=== PATIENT | female | born 1960 | race Caucasian/White ===

== ENCOUNTER 2018-12-31 15:20 | Outpatient (CLI) | payer MEDICAID, SELFPAY ==
--- NOTE | 2018-12-31 15:47 | DI.US_ITS ---
SYMPTOM/DIAGNOSIS: LT LEG SWELLING, PAIN LT INNER MID THIGH, VARICOSE VEINS, H/O DVT, ? DVT LEFT LOWER EXTREMITY ULTRASOUND: Routine examination was performed. There is partial compression of the left common femoral vein and the proximal and mid femoral vein due to thrombus. There also appears to be thrombus at the common femoral greater saphenous vein junction. The distal femoral vein, popliteal and posterior tibial veins show normal compression and blood flow. No evidence of thrombus is seen in these regions. The soft tissues are unremarkable. IMPRESSION: Findings consistent with a deep venous thrombus involving the common femoral vein extending to involve the proximal and mid portions of the femoral vein. There is involvement seen at the common femoral greater saphenous vein junction.
[2018-12-31 16:28] LABS: Abs Immature Grans 0.01 k/cumm (0.0-0.09); Absolute Basophil Count 0.03 k/cumm (0.0-0.2); Absolute Eosinophil Count 0.09 k/cumm (0.0-0.7); Absolute Lymphocyte Count 1.75 k/cumm (1.2-3.4); Absolute Monocyte Count 0.43 k/cumm (0.11-0.7); Absolute Neutrophil Count 4.22 k/cumm (1.2-6.7); Basophils % 0.5; Eosinophils % 1.4; HCT 37.4 % (36.0-46.0); Immature Grans % 0.2; Lymphocytes % 26.8; Mean Corp. HGB Concentration 32.1 g/dL (32.0-36.0); Mean Corpuscular Hemoglobin 29.1 pg (27.0-33.0); Mean Corpuscular Volume 90.6 fL (80-95); Mean Platelet Volume 10.9 fL (8.0-11.0); Monocytes % 6.6; Neutrophils % 64.5; Platelet Count 213 x1000/uL (130-400); RBC 4.13 m/cumm (4.00-5.20); RBC Distribution Width 13.7 % (11.7-14.6); White Blood Cell Count 6.53 k/cumm (4.4-10.8)
--- NOTE | 2018-12-31 16:35 | DI.VRAD_ITS ---
Addendum created by Lizandro Minaya DO on 12/31/2018 5:21:26 PM EDT THIS REPORT CONTAINS FINDINGS THAT MAY BE CRITICAL TO PATIENT CARE. The findings were verbally communicated via telephone conference with Dr Nieto at 5:21 PM EDT on 12/31/2018. The findings were acknowledged and understood. Initial report created on 12/31/2018 4:35:12 PM EDT EXAM: US Duplex Left Lower Extremity Veins, Limited EXAM DATE/TIME: 12/31/2018 4:04 PM CLINICAL HISTORY: 58 years old, female; Pain; Leg, upper; Left; Prior surgery; Surgery date: 6+ months; Surgery type: PT has plates in left lower leg d/t accident; Additional info: HX dvt, left leg swelling, left calf 44cm, right calf 41 cm, varicose veins present, pain at left inner mid thigh TECHNIQUE: Real-time Duplex ultrasound of the Left Lower Extremity with 2-D mcclure scale, color Doppler flow and spectral waveform analysis. Limited exam focused on the left lower extremity veins. COMPARISON: No relevant prior studies available. FINDINGS: Left deep veins: There is partial compression of the left common femoral vein/greater saphenous vein junction, proximal and made femoral vein. The distal femoral, popliteal and posterior tibial veins are unremarkable. Soft tissues: Unremarkable. IMPRESSION: Positive for deep venous thrombosis of left common femoral vein in the proximal and midportion as well as at common femoral vein and greater saphenous vein junction. Dictated and Authenticated by: Lizandor Minaya MD. Ordering:VALENTINE Carranza MD
[2018-12-31 16:53] LABS: D-Dimer 316 ng/mlFEU (<500)
[2018-12-31 18:53] LABS: C-Reactive Protein 0.56 mg/dL (0.0-0.3)
[2018-12-31 22:40] LABS: ESR 13 MM/HR (0-30)
== END 2018-12-31 15:40 ==
PROVIDERS: PCP Nurse Practitioner Family; Visit Provider Nurse Practitioner Family
DX: M79.605 Pain in left leg (principal); I82.412 Acute embolism and thrombosis of left femoral vein
CPT/HCPCS: 36415; 85652; 85025; 85379; 86140; 93971

== ENCOUNTER 2019-06-04 16:44 | Emergency (ER) | payer MEDICAID, SELFPAY ==
--- NOTE | 2019-06-04 16:57 | NUR.NOTE ---
Nursing Note: on pt developed small rash on ther right wrist since the rash has spread up her right arm past her elbow and to left forearm
[2019-06-04 16:59] VITALS: BP 147/83; PULSE 77; RESP 18; TEMP 36.6; O2SAT 99
--- NOTE | 2019-06-04 17:29 | ED.GENADUL_ITS ---
Discharge Plan Disposition Patient Disposition: HOME Discharge Details Chief Complaint: RashLesion Clinical Impression: Rash Primary Care Provider: Tere Brar ED Provider: Nathaniel Sanon Home Meds and New Rx's Prescriptions: New doxycycline hyclate 100 mg capsule 100 mg PO BID Qty: 19 RF: 0 Continued bupropion HCl [Wellbutrin SR] 150 mg Tablet Sustained-Release 12 Hr 150 mg PO BID RF: 0 Eliquis 5 mg Tablet 5 mg PO BID RF: 0 Discharge Instructions Instructions: Acute Rash (ED) Additional Instructions: Please take Benadryl 50 mg every 8 hours as needed for itching. Please take doxycycline as prescribed. Be sure to complete the full antibiotic course. Please contact your primary care physician to arrange follow-up. Return to the ER for any worsening or new concerning symptoms. Referrals: Tere Brar [Primary Care Provider] - Medical Decision Making 58-year-old female here with itchy red rash of her itchy right forearm that appears slightly raised and demarcated that has been extending proximately over the past 3 days. Also with small area of rash left forearm. No tick bites. Rash does appear allergic and hive-like. No known allergens. Patient has been using antihistamine today which has not resolved her symptoms. Consider infectious etiology and cellulitis superimposed on the right upper extremity rash. Plan to treat with doxycycline. I have encouraged the patient to follow-up with her primary care physician -patient verbalized understanding of importance of timely follow-up for reassessment. I also encouraged her to return immediately should she have any worsening or new concerning symptoms. Usual and customary discharge instructions were provided. HPI General Mode of arrival: ambulatory . Date/Time Provider Initiated Documentation: 06/04/19 17:14 . Limitations to Documentation: no limitations . Information obtained by: patient . HPI Narrative: 58-year-old female presents with chief complaint of rash. 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 Patient notes that rash started 3 days ago on her right wrist and has progressed. Rash is described as itchy and red. Rash now involves her right forearm she also notes that she has a small rash on her left proximal forearm. She denies associated fever. No joint aches. Otherwise feeling well. She denies known allergen. Patient notes that she is had no tick bites. Related Data Home Medications Medication Instructions Recorded Confirmed Eliquis 5 mg PO BID 06/04/19 06/04/19 bupropion HCl [Wellbutrin SR] 150 mg PO BID 06/04/19 06/04/19 doxycycline hyclate 100 mg PO BID #19 cap 06/04/19 Previous Rx's Medication Instructions Recorded doxycycline hyclate 100 mg PO BID #19 cap 06/04/19 Allergies Allergy/AdvReac Type Severity Reaction Status Date / Time No Known Drug Allergies Allergy Unverified 06/04/19 17:01 General Stated Complaint: RashLesion [place]: 4 Review of Systems Review of Systems All systems reviewed & are unremarkable except as noted in HPI and below Constitutional Denies chills and Denies fever(s) Respiratory Denies cough Integumentary/Breasts Reports as per HPI [facility] Medical History Arthralgia Varicose vein of leg Surgical History Colonoscopy - MAC (09/28/17) Vaginal hysterectomy Social History Smoking/Tobacco Use Status: Former Tobacco Use Drug use: Never Substance use type: does not use Do you feel safe at home: Yes Do you feel safe in your relationship?: Yes Exam Const General: cooperative and no acute distress HENMT Head: normocephalic Mouth: moist mucous membranes Eyes Conjunctivae: normal conjunctivae Sclera: normal sclerae Resp Auscultation: clear to auscultation bilaterally, no rales, no rhonchi and no wheezes Cardio Jugular venous pressure: no JVD Rate: regular rate and not tachycardic Rhythm: regular rhythm Heart Sounds: S1 normal, S2 normal and no murmurs Skin General skin exam: no rashes or lesions noted Rashes: rashes noted (Slightly raised confluent red rash right anterior forearm) Other: subtle 2cm papular rash right forearm Neuro General: alert, awake and tone normal Extrem General: no edema Psych Appearance: grossly normal Mental Status: mental status grossly normal Course Vital Signs Temperature 36.6 C 06/04/19 16:59 Pulse 77 06/04/19 16:59 Respiratory Rate 18 06/04/19 16:59 Blood Pressure 147/83 H 06/04/19 16:59 Pulse Oximetry 99 06/04/19 16:59 Temperature 36.6 C 06/04/19 16:59 Temperature Source Skin 06/04/19 16:59 Pulse 77 06/04/19 16:59 Respiratory Rate 18 06/04/19 16:59 Respiratory Effort Non-Labored 06/04/19 17:07 Blood Pressure 147/83 H 06/04/19 16:59 Blood Pressure Position Supine 06/04/19 16:59 Pulse Oximetry 99 06/04/19 16:59 Oxygen Delivery Method Room Air 06/04/19 16:59 Oxygen Flow Rate 0 06/04/19 16:59 Pain Level 4 06/04/19 16:59
[2019-06-04] MEDS: Doxycycline Hyclate 100 MG CAP PO (17:35)
== END 2019-06-04 17:41 | disposition home or self-care (01) ==
PROVIDERS: Emergency Provider Student in an Organized Health Care Education/Training Program; PCP Nurse Practitioner Family
DX: R21 Rash and other nonspecific skin eruption (principal)
CPT/HCPCS: 99283

== ENCOUNTER 2019-08-30 10:54 | Outpatient (REF) | payer MEDICAID, SELFPAY ==
[2019-08-30 21:49] LABS: HCT 39.8 % (36.0-46.0); HGB 12.7 g/dL (12.0-15.5); Mean Corp. HGB Concentration 31.9 g/dL (32.0-36.0); Mean Corpuscular Hemoglobin 29.5 pg (27.0-33.0); Mean Corpuscular Volume 92.6 fL (80-95); Platelet Count 243 x1000/uL (130-400); RBC Distribution Width 13.6 % (11.7-14.6); White Blood Cell Count 6.87 k/cumm (4.4-10.8)
[2019-08-30 23:02] LABS: Calculated LDL 119 mg/dL; Cholesterol 193 mg/dL (50-200); Glucose 91 mg/dL (70-100); HDL Cholesterol 41 mg/dL (40-60); Triglyceride 165 mg/dL (30-150)
== END 2019-08-30 11:14 ==
LOC: NCHCN 10:54
PROVIDERS: PCP Nurse Practitioner Family; Visit Provider Nurse Practitioner Family
DX: Z86.718 Personal history of other venous thrombosis and embolism (principal); Z13.220 Encounter for screening for lipoid disorders; Z13.1 Encounter for screening for diabetes mellitus
CPT/HCPCS: 80061; 82947; 85027

== ENCOUNTER 2019-09-06 22:55 | Outpatient (REF) | payer MEDICAID, SELFPAY ==
[2019-09-06 20:32] LABS: C-Reactive Protein 0.54 mg/dL (0.0-0.3)
[2019-09-06 20:51] LABS: ESR 12 mm/hr (0-30)
[2019-09-08 10:42] LABS: HBs Antibody, Quant >1000.0 mIU/mL; Hepatitis B Surface Ab Positive (See Note)
== END 2019-09-06 23:15 ==
LOC: NCHCN 22:55
PROVIDERS: PCP Nurse Practitioner Family; Visit Provider Nurse Practitioner Family
DX: R22.0 Localized swelling, mass and lump, head (principal); N75.0 Cyst of Bartholin's gland; Z11.59 Encounter for screening for other viral diseases
CPT/HCPCS: 85652; 86706; 86140

== ENCOUNTER 2019-09-09 15:05 | Emergency (ER) | payer MEDICAID, SELFPAY ==
[2019-09-09 15:07] VITALS: BP 154/79; PULSE 77; RESP 18; TEMP 36.4; O2SAT 97
--- NOTE | 2019-09-09 15:22 | ED.GENADUL_ITS ---
Discharge Plan Disposition Patient Disposition: HOME Condition: Stable Discharge Details Chief Complaint: Cellulitis Clinical Impression: Cellulitis of foot, left Primary Care Provider: Tere Brar ED Provider: Cipriano Walker Home Meds and New Rx's Prescriptions: New amoxicillin-pot clavulanate [Augmentin] 875-125 mg tablet 1 tab PO BID Qty: 14 RF: 0 prednisone 20 mg tablet 60 mg PO DAILY 4 Days Qty: 12 RF: 0 Continued Eliquis 5 mg Tablet 5 mg PO BID RF: 0 sulfamethoxazole-trimethoprim [Bactrim DS] 800-160 mg Tablet RF: 0 albuterol sulfate [ProAir HFA] 90 mcg/actuation Hfa Aerosol Inhaler INHALATION RF: 0 No Action cetirizine 10 mg Tablet 10 mg PO DAILY RF: 0 Discharge Instructions Instructions: Cellulitis (ED) Additional Instructions: if you have redness streaking up the leg, severe pain or fevers return to the emergency department if not better by next week follow up with your primary care provider Medical Decision Making 58 yo female with hx of dvt on eliquis comes in with left foot redness and swelling since yesterday. Denies fevers, chills, or severe pain. Has erythema of the entire left foot extending up 3cm of the lower leg. No crepitus, fluctuance or draingae, 2+ dp/pt pulses with intact sensation and is warm to touch. Suspect cellulitis. Discussed trial of PO abx vs IV abx and she would like to try oral given no fevers or other symptoms to suggest sepsis. She understands importance of returning if worsening and to f/u with pcp. No calf pain and no significant swelling so doubt dvt Differential Diagnosis Differential Diagnosis: cellulitis, gout HPI General Mode of arrival: ambulatory . Date/Time Provider Initiated Documentation: 09/09/19 15:12 . Limitations to Documentation: no limitations . Information obtained by: patient . History of Present Illness 58 year old F presents to the emergency department with the chief complaint of rash, described as moderate, Patient started experiencing this day(s) (1) and it has been constant. No relieving factors improve symptom(s), No exacerbating factors reported . Patient did receive the following treatments prior to arrival, none Related Data Home Medications Medication Instructions Recorded Confirmed Eliquis 5 mg PO BID 06/04/19 06/04/19 albuterol sulfate [ProAir HFA] INHALATION 09/09/19 amoxicillin-pot clavulanate 1 tab PO BID #14 tab 09/09/19 [Augmentin] cetirizine 10 mg PO DAILY 09/09/19 09/09/19 prednisone 60 mg PO DAILY 4 Days #12 tab 09/09/19 sulfamethoxazole-trimethoprim 09/09/19 [Bactrim DS] Previous Rx's Medication Instructions Recorded amoxicillin-pot clavulanate 1 tab PO BID #14 tab 09/09/19 [Augmentin] prednisone 60 mg PO DAILY 4 Days #12 tab 09/09/19 Allergies Allergy/AdvReac Type Severity Reaction Status Date / Time bupropion [From Wellbutrin] Allergy Hives Unverified 09/09/19 15:24 No Known Drug Allergies Allergy Unverified 09/09/19 15:24 General Stated Complaint: Cellulitis [place]E: 3 Review of Systems All systems reviewed & are unremarkable except as noted in HPI and below Constitutional Constitutional: Denies chills, Denies fever(s) and Denies weakness ENT Ears, Nose, Mouth, and Throat: Denies change in voice Cardiovascular Cardiovascular: Denies chest pain and Denies dyspnea Respiratory Respiratory: Denies dyspnea Gastrointestinal Gastrointestinal: Denies abdominal pain, Denies nausea and Denies vomiting Musculoskeletal Musculoskeletal: Denies joint swelling Neurologic Neurologic: Denies weakness [facility] Social History Smoking/Tobacco Use Status: Former Tobacco Use Drug use: Never Substance use type: does not use Do you feel safe at home: Yes Do you feel safe in your relationship?: Yes Exam Const General: no acute distress Orientation: alert [facility] Head: normal to inspection Ears: external ears normal General nose exam: external nose normal Mouth: moist mucous membranes Eyes General: appearance normal, both eyes and all related structures Neck Neck: normal visual inspection Resp Effort & Inspection: normal respiratory effort and able to speak in complete sentences Cardio Rate: regular rate Skin General skin exam: elasticity normal Neuro General: alert and oriented x3 Extrem General: normal capillary refill Psych Mental Status: mental status grossly normal Course Vital Signs Vital signs: Vital Signs Temperature 36.4 C L 09/09/19 15:07 Pulse 77 09/09/19 15:07 Respiratory Rate 18 09/09/19 15:07 Blood Pressure 154/79 H 09/09/19 15:07 Pulse Oximetry 97 09/09/19 15:07 Temperature 36.4 C L 09/09/19 15:07 Temperature Source Skin 09/09/19 15:07 Pulse 77 09/09/19 15:07 Respiratory Rate 18 09/09/19 15:07 Respiratory Effort 09/09/19 15:14 Blood Pressure 154/79 H 09/09/19 15:07 Blood Pressure Position Sitting 09/09/19 15:07 Pulse Oximetry 97 09/09/19 15:07 Oxygen Delivery Method Room Air 09/09/19 15:07 Oxygen Flow Rate 0 09/09/19 15:07 Pain Level 7 09/09/19 15:07
[2019-09-09] MEDS: predniSONE 20 MG TAB 60 MG PO (15:38)
[2019-09-09] MEDS: Amoxicillin 875/Clav. 125 TAB PO (15:38)
== END 2019-09-09 15:35 | disposition home or self-care (01) ==
PROVIDERS: Emergency Provider Emergency Medicine; PCP Nurse Practitioner Family
DX: L03.116 Cellulitis of left lower limb (principal); Z79.01 Long term (current) use of anticoagulants
CPT/HCPCS: 99283; J7512

== ENCOUNTER 2019-09-28 01:03 | Outpatient (CLI) | payer MEDICAID, SELFPAY ==
--- NOTE | 2019-09-28 11:51 | DI.MAMMO_ITS ---
EXAM: MG MAMMO SCREENING CLINICAL HISTORY: SCREENING, Z12.31. TECHNIQUE: Full field digital CC and MLO mammographic images were obtained with 3D tomosynthesis and utilizing computer aided detection (CAD). COMPARISON: . 2011 through 2016 FINDINGS: Breast Density - Category B - Scattered areas of fibroglandular density Masses/Architectural Distortion: None seen. Microcalcifications: No suspicious pleomorphic-type calcifications are seen. Skin Thickening/Nipple Retraction: None. Axilla: Unremarkable. IMPRESSION: 1. BI-RADS category 1, negative. No significant interval change with no specific features of maligna ncy noted. 2. Unless there is more urgent need, screening mammography is recommended, as per [place] [employer] guidelines. A negative radiographic report should not delay biopsy if a dominant or clinically suspicious mass is present. Up to ten percent of cancers are not identified on mammography. A negative report may reinforce clinical impression. Adenosis and dense breasts may obscure an underlying neoplasm. False positive reports average 6 to 10%. Patient will receive a letter notifying them of these results.
== END 2019-09-28 01:23 ==
PROVIDERS: PCP Nurse Practitioner Family; Visit Provider Nurse Practitioner Family
DX: Z12.31 Encounter for screening mammogram for malignant neoplasm of breast (principal)
CPT/HCPCS: 77063; 77067

== ENCOUNTER 2019-11-28 15:32 | Outpatient (REF) | payer MEDICAID, SELFPAY ==
[2019-11-28 19:17] LABS: HCT 38.3 % (36.0-46.0); HGB 12.4 g/dL (12.0-15.5); Mean Corp. HGB Concentration 32.4 g/dL (32.0-36.0); Mean Corpuscular Hemoglobin 29.4 pg (27.0-33.0); Mean Corpuscular Volume 90.8 fL (80-95); Mean Platelet Volume 12.1 fL (8.0-11.0); Platelet Count 260 x1000/uL (130-400); RBC 4.22 m/cumm (4.00-5.20); RBC Distribution Width 13.7 % (11.7-14.6); White Blood Cell Count 6.29 k/cumm (4.4-10.8)
== END 2019-11-28 15:52 ==
LOC: NCHCN 15:32
PROVIDERS: PCP Nurse Practitioner Family; Visit Provider Nurse Practitioner Family
DX: Z51.81 Encounter for therapeutic drug level monitoring (principal)
CPT/HCPCS: 85027

== ENCOUNTER 2019-12-09 00:44 | Inpatient (IN) | payer MEDICAID, SELFPAY ==
[2019-12-09] VITALS (31 sets, daily range): BP systolic 111–172; BP diastolic 64–92; PULSE 56–74; RESP 12–28; TEMP 36.1–36.7; O2SAT 96–100
--- NOTE | 2019-12-09 | DI.US_ITS ---
EXAM: US ABDOMEN CLINICAL HISTORY: pancreatitis TECHNIQUE: Ultrasound performed using standard protocol. COMPARISON: CT CHEST PE CTA from 12/09/2019 FINDINGS: The liver is enlarged measuring 18.1 cm in length. There is increased liver echogenicity consistent with fatty infiltration. No focal liver lesions or biliary dilatation is seen. No gallstones or pe richolecystic fluid is seen. The pancreas is unremarkable as visualized. No peripancreatic fluid co llection or ascites is seen. The spleen, kidneys and aorta are unremarkable. IMPRESSION: [id number] hepatic steatosis and mild hepatomegaly. There is no visible pancreatic abnormality . DATA REPOSITORY:
--- NOTE | 2019-12-09 00:48 | ED.GENADUL_ITS ---
Discharge Plan Disposition Patient Disposition: [facility] INPATIENT Condition: Fair Discharge Details Chief Complaint: Chest Pain Clinical Impression: Acute pancreatitis Primary Care Provider: Tere Brar ED Provider: Rudy Buckner [place] Meds and New Rx's Prescriptions: No Action Eliquis 5 mg Tablet 5 mg PO BID RF: 0 Medical Decision Making Patient presenting with left-sided chest pain which she describes as pleuritic but also tightness. Tenderness to palpation along the left lower anterior costal margin up along the sternum. Abdomen is benign. Prior history of DVT and on Eliquis chronically. Does not feel short of breath but cannot take a deep breath. No trauma and no previous illness. Have to consider PE given her history though being on Eliquis makes it unlikely. Given her level of discomfort will just proceed with CTA. Will give nitroglycerin although I do not think this is cardiac. Pain is mostly reproducible. EKG is normal. Laboratory studies sent. Will calculate a HEART score once first troponin back. Patient's CT scan is negative for pulmonary embolus or aortic dissection. However, it shows evidence of peripancreatic inflammation. Lipase is added onto labs. Other labs are unremarkable. White count is normal. Hemoglobin normal. Chemistries normal. First troponin negative. Nitroglycerin did not help. Patient given morphine with some relief. Lipase has returned greater than 15,000. Patient has no right-sided abdominal pain or tenderness. White count and liver function normal. Seems unlikely to be gallstone related but should get ultrasound in the morning. Patient is not a drinker or smoker. She is on no medications that would cause this. Triglycerides this fall were only 165. At this point no clear etiology for her pancreatitis but will require admission for pain control and fluids. Case discussed with hospitalist who will come in to evaluate and admit the patient. Medical Records Medical records reviewed: Yes I reviewed the patient's medical records. Lab Data Lab results reviewed: Yes I reviewed the patient's lab results. ECG Data Attestation: I personally reviewed and interpreted this ECG (s) as follows: Prior ECG tracings: not available for review Interpretation: Sinus rhythm at 65. Normal axis and intervals. Normal ST segments. HPI General Mode of arrival: ambulatory . Date/Time Provider Initiated Documentation: 12/09/19 00:47 . Limitations to Documentation: no limitations . Information obtained by: patient, RN notes reviewed and old records reviewed . HPI Narrative: Patient presents to ED with complaint of left-sided chest pain that woke her up around hour prior to coming in. She describes it as pressure/tightness but it is also pleuritic and much worse with movement or breathing. She has not had this previously. She does have a history of DVT in the past and is on Eliquis chronically. She has recently had ultrasounds which showed clearance of the clot. She denies being ill with fever or cough or respiratory symptoms. She denies radiation to the neck or shoulders. Some radiation to the lateral chest. There is no abdominal pain. There is no nausea. Related Data Home Medications Medication Instructions Recorded Confirmed Eliquis 5 mg PO BID 06/04/19 12/09/19 Allergies Allergy/AdvReac Type Severity Reaction Status Date / Time bupropion [From Wellbutrin] Allergy Hives Unverified 12/09/19 00:56 General [place]: 3 Review of Systems Narrative: 08/01 Review of Systems completed and is negative except as stated above in HPI (Systems reviewed: Const, Eyes, ENT, Resp, CV, GI, , MSK, Skin, Neuro) [facility] Medical History (Updated 12/09/19 @ 02:54 by Rudy Buckner MD) DVT (deep venous thrombosis) (Chronic) Surgical History Status post open reduction with internal fixation of fracture (Chronic) ankle, wrist Vaginal hysterectomy (Chronic) Social History Smoking/Tobacco Use Status: Former Tobacco Use Alcohol Intake: never Drug use: Never Substance use type: does not use Do you feel safe at home: Yes Do you feel safe in your relationship?: Yes Exam Narrative Exam Narrative: Vitals: Afebrile. Hypertensive but otherwise normal vitals and normal room air pulse oximetry. Const: WDWN female in NAD. HEENT: NC/AT. Normal facial exam. Eyes: Normal conjunctiva and sclera. Neck: Supple. Trachea midline. Lungs: Normal respiratory effort. Lungs are clear. Tenderness along the left lower costal margin up around the left sternal border. Cor: RRR without murmur/gallop. Good radial pulses. GI: Soft. NT/ND. No guarding or rebound. Neuro: A+O x 3. Normal speech, mentation, gait. Cranial nerves II - XII grossly intact. No gross motor or sensory deficit. Ext: No C/C/E. Skin: Warm and dry without rash.
[2019-12-09] MEDS: Lactated Ringers 1,000 ML 150 ML IV ×2 (01:13→19:26)
[2019-12-09 01:15] LABS: Abs Immature Grans 0.01 k/cumm (0.0-0.09); Absolute Basophil Count 0.04 k/cumm (0.0-0.2); Absolute Lymphocyte Count 2.38 k/cumm (1.2-3.4); Absolute Monocyte Count 0.73 k/cumm (0.11-0.7); Absolute Neutrophil Count 6.32 k/cumm (1.2-6.7); Basophils % 0.4; HCT 39.8 % (36.0-46.0); HGB 13.2 g/dL (12.0-15.5); Immature Grans % 0.1 %; Lymphocytes % 24.8; Mean Corp. HGB Concentration 33.2 g/dL (32.0-36.0); Mean Corpuscular Hemoglobin 29.9 pg (27.0-33.0); Mean Corpuscular Volume 90.2 fL (80-95); Mean Platelet Volume 11.3 fL (8.0-11.0); Monocytes % 7.6; Neutrophils % 66.1; Platelet Count 264 x1000/uL (130-400); RBC 4.41 m/cumm (4.00-5.20); RBC Distribution Width 13.8 % (11.7-14.6); White Blood Cell Count 9.58 k/cumm (4.4-10.8)
[2019-12-09 01:29] LABS: ALT 19 U/L (14-59); AST 16 U/L (15-37); Albumin 3.9 g/dL (3.4-5.0); Alkaline Phosphatase 79 U/L (46-116); Anion Gap 7.5 mmol/L (3-11); BUN 18 mg/dL (7-18); Bilirubin, Total 0.2 mg/dL (0.2-1.0); CO2 29.5 mmol/L (21.0-32.0); CREATININE 0.95 mg/dL (0.55-1.02); Calcium 8.6 mg/dL (8.5-10.1); Chloride 106 mmol/L (98-107); Glucose 116 mg/dL (74-106); Magnesium 2.1 mg/dL (1.8-2.4); Potassium 3.7 mmol/L (3.5-5.1); Sodium 143 mmol/L (136-145); Total Protein 7.4 g/dL (6.4-8.2)
[2019-12-09 01:30] LABS: Troponin I < 0.05 ng/Ml (<0.06)
[2019-12-09] MEDS: Omnipaque 350 MG/ML 100 ML BTL IJ ×2 (01:43→19:06)
[2019-12-09] MEDS: Normal Saline Flush 10 ML SYR IVP ×3 (01:44→21:46)
[2019-12-09] MEDS: Normal Saline - Diluent 50 ML VIAL IV ×2 (01:44→19:04)
--- NOTE | 2019-12-09 01:45 | DI.CT_ITS ---
EXAM: CT CHEST PE CTA CLINICAL HISTORY: chest pain; history of DVT TECHNIQUE: Post IV contrast according to the PE protocol. Axial CT angiography was performed with multi-slice acquisition and multi-planar and/or 3D reconstruc tions. COMPARISON: No exams were available for comparison FINDINGS: The pulmonary arteries are well opacified with IV contrast. No emboli are identified. The aorta is normal in diameter without evidence of dissection. The lungs appear clear. No pleural or pleural or pericardial effusions or infiltrates are seen. The liver appears enlarged and shows fatty infiltrat ion. Pancreas is partially included on the exam. There is question of mild prominence of the head o f the pancreas and some stranding around the pancreas which could indicate pancreatitis. No fluid co llection is visible. Adrenals appear normal. The spleen is normal in size. No suspicious bony abno rmalities are seen. IMPRESSION: No evidence of pulmonary emboli or other acute abnormality in the chest. There is a question of some inflammation around the pancreas which could indicate pancreatitis.
--- NOTE | 2019-12-09 01:45 | NUR.NOTE ---
Nursing Note: Pt reports pain improves with sitting up in bed.
--- NOTE | 2019-12-09 01:52 | DI.VRAD_ITS ---
PROCEDURE INFORMATION: Exam: CT Angiography Chest With Contrast Exam date and time: 12/09/2019 1:08 AM Age: 59 years old Clinical indication: Chest pain; Type not specified; Patient HX: HX dvt TECHNIQUE: Imaging protocol: Computed tomographic angiography of the chest with intravenous contrast. 3D rendering: MIP and/or 3D reconstructed images were created by the technologist. Radiation optimization: All CT scans at this facility use at least one of these dose optimization techniques: automated exposure control; mA and/or kV adjustment per patient size (includes targeted exams where dose is matched to clinical indication); or iterative reconstruction. Contrast material: [id number]; Contrast volume: 87 ml; Contrast route: IV RT AC 18G; COMPARISON: No relevant prior studies available. FINDINGS: Pulmonary arteries: Main pulmonary artery normal in caliber. No pulmonary artery filling defects. Aorta: No aortic aneurysm or dissection. Lungs: There is minimal bibasilar atelectasis. Pleural space: No pneumothorax. No pleural effusion. Heart: Unremarkable. No cardiomegaly. No pericardial effusion. Liver: There is diffuse decrease in hepatic parenchymal density, consistent with moderate fatty infiltration. Pancreas: Subtle peripancreatic fat stranding. No ductal dilatation. Lymph nodes: Unremarkable. No enlarged lymph nodes. Bones/joints: The spine demonstrates mild degenerative changes at multiple levels. No acute fracture. Soft tissues: Unremarkable. IMPRESSION: 1. No pulmonary artery embolism demonstrated. 2. Subtle peripancreatic fat stranding. Correlate clinically for the presence of pancreatitis. 3. Hepatic steatosis. Dictated and Authenticated by: Ranulfo Dunbar MD. Ordering:MI Grant MD
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
[2019-12-09] MEDS: Lactated Ringers 1,000 ML 120 ML IV (04:50)
[2019-12-09 06:44] LABS: Anion Gap 8.7 mmol/L (3-11); BUN 16 mg/dL (7-18); CO2 28.3 mmol/L (21.0-32.0); CREATININE 0.76 mg/dL (0.55-1.02); Calcium 8.7 mg/dL (8.5-10.1); Chloride 104 mmol/L (98-107); Glucose 110 mg/dL (74-106); Potassium 4.1 mmol/L (3.5-5.1); Sodium 141 mmol/L (136-145)
[2019-12-09] MEDS: Ondansetron 4 MG/2 ML VIAL IVP ×2 (08:12→14:55)
[2019-12-09] MEDS: Enoxaparin 40 MG/0.4 ML SYR SC (09:03)
--- NOTE | 2019-12-09 09:40 | PHARADMIT ---
Admission Pharmacy Clinical Review ACUTE PANCREATITIS Code Status Full Code Current Weight Wgt-108.7 kg Renally Cleared and Narrow Therapeutic Index Meds CrCl~ 91.23 mL/min Meds-OK QTc Value / Action Taken QTc-399 na BP Control, Fever BP-149/81 Tmax-36.7C Electrolytes reviewed Na-141 K+4.1 Mag-2.1 DVT Prophylaxis Lovenox 40mg Opiate Usage / Scheduled Bowel Regimen Ordered Yes Yes Plt/SCr for Heparin / Enoxaparin Plts-264 SCr-0.76 INR for Warfarin na H/H stable, WBC/Bands H&H- 13.2/39.8 WBC-9.58 Antibiotic appropriateness none Cultures and Sensitivities none Surgical ABX d/c within 24 hr na DM control / Insulin Dosing BG- 110 Heart Failure (Check EF%) (MARGY's, B-Block, Diuretics) none IV to PO Switch No Home Meds Reviewed Yes Home Meds Not Ordered Kelsey Tamyrteandre Bactrim-DS Comments LFTs- WNL
--- NOTE | 2019-12-09 09:54 | PDOC.CMIN ---
- If Service Date Differs Date of service: 12/09/19 Time of Service: 09:54 Care Management Initial Assess REASON FOR HOSPITALIZATION:: Acute pancreatitis PAST MEDICAL HISTORY/PAST SURGICAL HISTORY:: Medical History (Updated 12/09/19 @ 04:05 by Emilio Nieto MD). DVT (deep venous thrombosis) (Resolved). Surgical History . Status post open reduction with internal fixation of fracture (Chronic). ankle, wrist. Vaginal hysterectomy (Chronic) PREVIOUS FUNCTIONAL STATUS/SOCIAL/FAMILY SUPPORTS:: Angie lives in a single family home in [facility] with her 2 children. She has a son and a daughter who are both 17 and are adopted from [place]. 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 She is independent at baseline and receives no community services. CURRENT FUNCTIONAL STATUS:: Angie was sitting up in bed visiting with her children when CM met with her. She was pleasant and engaged readily in conversation. Angie shared the details of her relocation to [place] and the reasons for it which were centered around her children and their education. She anticipates being in the hospital for the weekend. ADVANCE DIRECTIVES:: none on file Has patient been provided with information about the portal?: Yes Did the patient sign up for the portal?: Yes CODE STATUS:: Full Code INSURANCE COVERAGE / FINANCIAL ISSUES:: Medicaid CURRENT HOME/COMMUNITY SERVICES/EQUIPMENT:: none PRIMARY CARE PHYSICIAN:: Tere Brar POTENTIAL DISCHARGE NEEDS:: follow up with PCP and discharge plan of care PATIENT/FAMILY EDUCATION NEEDS:: Discharge plan, limitations, follow up plan, Ask Me Three. TRANSPORTATION:: via private vehicle with family PLAN:: Angie will likely be discharged home with no new services. She will follow up with her PCP and discharge plan of care. CM will continue to support patient, family and discharge planning needs.
--- NOTE | 2019-12-09 13:43 | W.NUTCONSULT ---
Date of service: 12/09/19 Time of Service: 13:43 Nutritional Consult ASSESSMENT: 59 year old female admitted with acute pancreatitis, currently NPO. BMI indicates class 1 obesity, appear well nourished. Receiving IV fluids. Not meeting nutrient needs at this time in view of NPO status. Angie was sleeping when I came to interview her. Will monitor diet advancement and or make warranted recommendations for optimal nutrition. NUTRITIONAL DIAGNOSIS: inadequate energy intake MONITORING AND EVALUATION: diet advancement, weight, labs Time Spent in Nutritional Counseling and Treatment: 0 time spent face to face
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
--- NOTE | 2019-12-09 14:52 | W.PM.PROGNOT ---
Date of Service Date of service: 12/09/19 Time of Service: 14:53 Subjective Subjective Interval history since last seen: Continues to have severe epigastric pain and nausea. No dizziness, chest pain, shortness of breath. Abdominal pain worse with ambulation today. Firmly denies alcohol use. US abdomen with mild to moderate hepatic steatosis, mild hepatomegaly, but no visible pancreatic abnormality. Evaluated by general surgery; awaiting formal recommendations. Will continue aggressive IVF, keep patient NPO. Add protonix. Check labs in am including CRP. Continue lovenox for dvt ppx. Objective Objective Clinical Data: Abnormal lab results 12/09/19 12/09/19 12/09/19 Range/Units 00:56 00:56 06:05 MPV 11.3 H (8.0-11.0) fL Absolute Monocytes 0.73 H (0.11-0.7) k/cumm Glucose 116 H 110 H (74-106) mg/dL Vital Signs Temperature 36.7 C 12/09/19 07:30 Temperature Source Tympanic 12/09/19 07:30 Pulse 56 L 12/09/19 07:30 Pulse Rhythm Regular 12/09/19 13:10 Pulse 64 12/09/19 04:01 Respiratory Rate 18 12/09/19 07:30 Respiratory Effort Non-Labored 12/09/19 13:10 Respiratory Depth Normal 12/09/19 13:10 Respiratory Pattern Normal 12/09/19 13:10 Blood Pressure 149/81 H 12/09/19 07:30 Blood Pressure Mean 97 12/09/19 04:00 Pulse Oximetry 97 12/09/19 11:17 Oxygen Delivery Method Room Air 12/09/19 11:17 Oxygen Flow Rate 0 12/09/19 11:17 Pain Level 8 12/09/19 11:24 Intake & Output 12/08/19 12/09/19 12/09/19 23:59 11:59 23:59 Intake Total 1000 / 1000 Output Total 200 / 400 200 / 400 Balance 800 / 600 -200 / 600 Weight 108.7 kg Intake: IV 1000 / 1000 Output: Urine 200 / 200 Emesis 200 / 200 Other: Urine Color Dark Shannan Urine Appearance Clear Urine Odor Normal Emesis Description Undigested Food Voiding Methods Toilet Laboratory Results WBC 9.58 k/cumm (4.4-10.8) 12/09/19 00:56 RBC 4.41 m/cumm (4.00-5.20) 12/09/19 00:56 Hgb 13.2 g/dL (12.0-15.5) 12/09/19 00:56 Hct 39.8 % (36.0-46.0) 12/09/19 00:56 MCV 90.2 fL (80-95) 12/09/19 00:56 MCH 29.9 pg (27.0-33.0) 12/09/19 00:56 MCHC 33.2 g/dL (32.0-36.0) 12/09/19 00:56 RDW 13.8 % (11.7-14.6) 12/09/19 00:56 Plt Count 264 x1000/uL (130-400) 12/09/19 00:56 MPV 11.3 fL (8.0-11.0) H 12/09/19 00:56 Immature Gran % 0.1 % 12/09/19 00:56 Neutrophils % 66.1 12/09/19 00:56 Lymphocytes % 24.8 12/09/19 00:56 Monocytes % 7.6 12/09/19 00:56 Eosinophils % 1.0 12/09/19 00:56 Basophils % 0.4 12/09/19 00:56 Absolute Neutrophils 6.32 k/cumm (1.2-6.7) 12/09/19 00:56 Absolute Lymphocytes 2.38 k/cumm (1.2-3.4) 12/09/19 00:56 Absolute Monocytes 0.73 k/cumm (0.11-0.7) H 12/09/19 00:56 Absolute Eosinophils 0.10 k/cumm (0.0-0.7) 12/09/19 00:56 Absolute Basophils 0.04 k/cumm (0.0-0.2) 12/09/19 00:56 Sodium 141 mmol/L (136-145) 12/09/19 06:05 Potassium 4.1 mmol/L (3.5-5.1) 12/09/19 06:05 Chloride 104 mmol/L (98-107) 12/09/19 06:05 Carbon Dioxide 28.3 mmol/L (21.0-32.0) 12/09/19 06:05 Anion Gap 8.7 mmol/L (3-11) 12/09/19 06:05 BUN 16 mg/dL (7-18) 12/09/19 06:05 Creatinine 0.76 mg/dL (0.55-1.02) 12/09/19 06:05 Estimated GFR/1.73 m2 >= 60.00 (mL/min/1.73m2) 12/09/19 06:05 Glucose 110 mg/dL (74-106) H 12/09/19 06:05 Calcium 8.7 mg/dL (8.5-10.1) 12/09/19 06:05 Magnesium 2.1 mg/dL (1.8-2.4) 12/09/19 00:56 Total Bilirubin 0.2 mg/dL (0.2-1.0) 12/09/19 00:56 AST 16 U/L (15-37) 12/09/19 00:56 ALT 19 U/L (14-59) 12/09/19 00:56 Alkaline Phosphatase 79 U/L (46-116) 12/09/19 00:56 Troponin I Cancelled 12/09/19 04:05 Total Protein 7.4 g/dL (6.4-8.2) 12/09/19 00:56 Albumin 3.9 g/dL (3.4-5.0) 12/09/19 00:56 Lipase U/L (73-393) 12/09/19 00:56
[2019-12-09] MEDS: Pantoprazole 40 MG VIAL IVP (15:42)
--- NOTE | 2019-12-09 19:10 | DI.CT_ITS ---
EXAM: CT ABDOMEN PELVIS W CLINICAL HISTORY: pancreatitis TECHNIQUE: CT examination of the abdomen and pelvis was performed with a bolus infusion of 100 cc of Omnipaque 350. COMPARISON: CT CHEST PE CTA from 12/09/2019 FINDINGS: Images obtained through the lung bases are unremarkable. There is decreased hepatic attenuation con sistent with hepatic steatosis. High density material in the gallbladder may reflect prior contrast administration earlier today. No biliary dilatation. Spleen is unremarkable. Question minimal cathleen pancreatic edema, possible pancreatitis, please correlate clinically and with lab values. Adrenals and kidneys are unremarkable. No urinary tract calcification or obstruction. No evidence o f appendicitis or diverticulitis. Normal caliber abdominal aorta with no gross vascular abnormality seen. No abdominal or pelvic adenopathy. No significant abdominal wall hernia. IMPRESSION: Question minimal peripancreatic edema may represent mild acute uncomplicated pancreatitis. No other significant acute findings.
--- NOTE | 2019-12-09 19:50 | DI.VRAD_ITS ---
PROCEDURE INFORMATION: Exam: CT Abdomen And Pelvis With Contrast Exam date and time: 12/09/2019 5:16 PM Age: 59 years old Clinical indication: Condition or disease; Pancreatic condition; Pancreatitis; Prior surgery; Surgery date: 6+ months TECHNIQUE: Imaging protocol: Computed tomography of the abdomen and pelvis with intravenous contrast. Radiation optimization: All CT scans at this facility use at least one of these dose optimization techniques: automated exposure control; mA and/or kV adjustment per patient size (includes targeted exams where dose is matched to clinical indication); or iterative reconstruction. Contrast material: [id number]; Contrast volume: 100 ml; Contrast route: IV RTAC 18G; COMPARISON: US ABDOMEN 12/09/2019 8:39 AM FINDINGS: Lungs: There is subpleural atelectasis of the dependent portions of the lungs. The visualized portions of the lung bases demonstrate no acute disease. Mediastinum: A small hiatal hernia is present. Liver: There is marked enlargement of the liver. There is a diffuse decrease in hepatic parenchymal density, consistent with fatty infiltration. No acute liver pathology. Gallbladder and bile ducts: Hyperdense fluid within the gallbladder. This can be related to vicarious excretion of contrast. No biliary ductal dilation. Pancreas: Very mild peripancreatic inflammatory changes are noted, slightly more pronounced at the pancreatic head. No other acute pancreatic findings are otherwise appreciated. Spleen: Normal. No splenomegaly. Adrenals: Normal. No mass. Kidneys and ureters: There is a small simple left renal cyst. No acute renal findings. No obstructive uropathy. Stomach and bowel: No bowel wall thickening, obstruction, or other acute pathology. Diffuse colonic diverticulosis is present. There is mildly excessive colonic stool content. Appendix: No evidence of appendicitis. Intraperitoneal space: Unremarkable. No free air. No significant fluid collection. Vasculature: The vasculature demonstrates diffuse mild atherosclerotic calcification. Lymph nodes: Unremarkable. No enlarged lymph nodes. Bladder: There is contrast within the urinary bladder. Mild urinary bladder wall thickening is most likely related to underdistention. Reproductive: There has been a hysterectomy. Bones/joints: No acute skeletal pathology. Mild multilevel degenerative changes of the spine, as manifested by multilevel anterior osteophytes and multilevel decrease in intervertebral disc space. Soft tissues: Unremarkable. IMPRESSION: 1. Mild acute edematous pancreatitis without complications. 2. Other incidental findings as detailed above. Dictated and Authenticated by: Ronn Rush MD. Ordering:PALMA Drake MD
[2019-12-10] MEDS: Lactated Ringers 1,000 ML 150 ML IV ×2 (01:44→08:20)
[2019-12-10 03:51] VITALS: BP 126/71; PULSE 60; RESP 16; TEMP 36; O2SAT 98
[2019-12-10 07:10] LABS: HCT 32.9 % (36.0-46.0); HGB 10.4 g/dL (12.0-15.5); Mean Corp. HGB Concentration 31.6 g/dL (32.0-36.0); Mean Corpuscular Hemoglobin 29.1 pg (27.0-33.0); Mean Corpuscular Volume 91.9 fL (80-95); Mean Platelet Volume 11.5 fL (8.0-11.0); Platelet Count 185 x1000/uL (130-400); RBC 3.58 m/cumm (4.00-5.20); White Blood Cell Count 6.94 k/cumm (4.4-10.8)
[2019-12-10 07:22] LABS: C-Reactive Protein 2.24 mg/dL (0.0-0.3)
[2019-12-10 07:24] LABS: Lipase 1628 U/L (73-393)
[2019-12-10 07:25] LABS: ALT 15 U/L (14-59); AST 10 U/L (15-37); Albumin 3.2 g/dL (3.4-5.0); Alkaline Phosphatase 65 U/L (46-116); Anion Gap 6.9 mmol/L (3-11); BUN 13 mg/dL (7-18); Bilirubin, Direct 0.09 mg/dL (0.00-0.20); Bilirubin, Total 0.4 mg/dL (0.2-1.0); CO2 28.1 mmol/L (21.0-32.0); CREATININE 0.82 mg/dL (0.55-1.02); Calcium 8.3 mg/dL (8.5-10.1); Chloride 106 mmol/L (98-107); Glucose 94 mg/dL (74-106); Potassium 3.8 mmol/L (3.5-5.1); Sodium 141 mmol/L (136-145); Total Protein 6.1 g/dL (6.4-8.2)
[2019-12-10 07:30] LABS: GGT 33 U/L (5-55)
[2019-12-10 07:32] VITALS: BP 121/67; PULSE 62; RESP 17; TEMP 36.6; O2SAT 96
[2019-12-10] MEDS: Enoxaparin 40 MG/0.4 ML SYR SC (08:19)
[2019-12-10] MEDS: Ondansetron 4 MG/2 ML VIAL IVP ×2 (09:57→16:32)
[2019-12-10 11:24] VITALS: BP 124/73; PULSE 60; RESP 18; TEMP 36.9; O2SAT 97
[2019-12-10] MEDS: Normal Saline Flush 10 ML SYR IVP ×2 (11:42→19:36)
--- NOTE | 2019-12-10 14:15 | W.PM.PROGNOT ---
Date of Service Date of service: 12/10/19 Time of Service: 14:15 Assessment and Plan Assessment and plan (1) Acute pancreatitis: Status: Acute Assessment and plan: DVT/GI proh pulm toilet walking try some tea or arabella mya cont conservative care follow hgb (2) DVT (deep venous thrombosis): Status: Resolved Subjective Subjective Interval history since last seen: Overall pt is feeling much better than on admission. She did have nausea last pm w/ just ice chips. She is thirsty, but not hungry. + Flatus, but no BM. no headaches. No CP or SOB. no productive cough. no dysuria. no leg pain or swelling. Exam Const General: cooperative, healthy appearing, comfortable, no acute distress, well developed and well groomed Nutritional Appearance: average body habitus and well nourished Orientation: alert, awake and oriented x3 HENMT Head: normal to inspection, normocephalic and atraumatic Ears: hearing grossly normal bilaterally and external ears normal General nose exam: external nose normal Face and sinus: normal facial exam and sinuses nontender Mouth: oral mucosae normal, lip normal, tongue normal and moist mucous membranes Teeth and gingiva: dentition normal Eyes General: appearance normal, both eyes and all related structures Conjunctivae: conjunctivae normal Sclera: sclerae normal Pupils: PERRL Neck Neck: normal visual inspection and full ROM Chest Chest: normal inspection of the chest Resp Effort & Inspection: normal respiratory effort, able to speak in complete sentences, no cough, no nasal flaring, not tachypneic and no use of accessory muscles Auscultation: clear to auscultation bilaterally, no rales, no rhonchi and no wheezes Cardio Jugular venous pressure: no JVD Rate: regular rate Rhythm: regular rhythm GI Inspection: normal to inspection, no edema and non-distended Palpation: soft, no masses, tender in the epigastrum (radiates into back ) and No ascites Auscultation: normal bowel sounds Skin General skin exam: no rashes or lesions noted Trauma: no lacerations or abrasions Neuro General: alert, oriented x3, oriented, gait normal, moves all extremities, no focal motor deficits and CN's II-XI intact bilaterally Cognition: normal cognition Speech: speech normal Gait: normal gait Motor: muscle tone normal throughout Extrem General: normal to inspection, full ROM and no clubbing, cyanosis or edema Psych Appearance: grossly normal and well kempt Mental Status: mental status grossly normal Speech and Movement: speech and movement normal Affect: normal affect Objective Objective Clinical Data: Abnormal lab results 12/10/19 12/10/19 12/10/19 Range/Units 06:39 06:39 06:39 RBC 3.58 L (4.00-5.20) m/cumm Hgb 10.4 L D (12.0-15.5) g/dL Hct 32.9 L (36.0-46.0) % MCHC 31.6 L (32.0-36.0) g/dL MPV 11.5 H (8.0-11.0) fL Calcium 8.3 L (8.5-10.1) mg/dL AST 10 L (15-37) U/L C-Reactive Protein 2.24 H (0.0-0.3) mg/dL Total Protein 6.1 L (6.4-8.2) g/dL Albumin 3.2 L (3.4-5.0) g/dL Lipase 1628 H (73-393) U/L Vital Signs Temperature 36.9 C 12/10/19 11:24 Temperature Source Tympanic 12/10/19 11:24 Pulse 60 12/10/19 11:24 Pulse Rhythm Regular 12/10/19 10:12 Pulse 64 12/09/19 04:01 Respiratory Rate 18 12/10/19 11:24 Respiratory Effort Non-Labored 12/10/19 10:12 Respiratory Depth Normal 12/10/19 10:12 Respiratory Pattern Normal 12/10/19 10:12 Blood Pressure 124/73 12/10/19 11:24 Blood Pressure Mean 97 12/09/19 04:00 Pulse Oximetry 97 12/10/19 11:24 Oxygen Delivery Method Room Air 12/10/19 11:24 Oxygen Flow Rate 0 12/10/19 11:24 Pain Level 4 12/10/19 12:36 Intake & Output 12/09/19 12/10/19 12/10/19 23:59 11:59 23:59 Intake Total 1934 Output Total 200 / 400 1250 / 1250 Balance -200 / 1200 685 / 685 Intake: IV 1934 Output: Urine 200 / 200 1250 / 1250 Other: Urine Color Dark Shannan Yellow Urine Appearance Clear Clear Urine Odor Normal Normal Emesis Description None Voiding Methods Toilet Toilet Laboratory Results WBC 6.94 k/cumm (4.4-10.8) 12/10/19 06:39 RBC 3.58 m/cumm (4.00-5.20) L 12/10/19 06:39 Hgb 10.4 g/dL (12.0-15.5) L D 12/10/19 06:39 Hct 32.9 % (36.0-46.0) L 12/10/19 06:39 MCV 91.9 fL (80-95) 12/10/19 06:39 MCH 29.1 pg (27.0-33.0) 12/10/19 06:39 MCHC 31.6 g/dL (32.0-36.0) L 12/10/19 06:39 RDW 14.0 % (11.7-14.6) 12/10/19 06:39 Plt Count 185 x1000/uL (130-400) 12/10/19 06:39 MPV 11.5 fL (8.0-11.0) H 12/10/19 06:39 Immature Gran % 0.1 % 12/09/19 00:56 Neutrophils % 66.1 12/09/19 00:56 Lymphocytes % 24.8 12/09/19 00:56 Monocytes % 7.6 12/09/19 00:56 Eosinophils % 1.0 12/09/19 00:56 Basophils % 0.4 12/09/19 00:56 Absolute Neutrophils 6.32 k/cumm (1.2-6.7) 12/09/19 00:56 Absolute Lymphocytes 2.38 k/cumm (1.2-3.4) 12/09/19 00:56 Absolute Monocytes 0.73 k/cumm (0.11-0.7) H 12/09/19 00:56 Absolute Eosinophils 0.10 k/cumm (0.0-0.7) 12/09/19 00:56 Absolute Basophils 0.04 k/cumm (0.0-0.2) 12/09/19 00:56 Sodium 141 mmol/L (136-145) 12/10/19 06:39 Potassium 3.8 mmol/L (3.5-5.1) 12/10/19 06:39 Chloride 106 mmol/L (98-107) 12/10/19 06:39 Carbon Dioxide 28.1 mmol/L (21.0-32.0) 12/10/19 06:39 Anion Gap 6.9 mmol/L (3-11) 12/10/19 06:39 BUN 13 mg/dL (7-18) 12/10/19 06:39 Creatinine 0.82 mg/dL (0.55-1.02) 12/10/19 06:39 Estimated GFR/1.73 m2 >= 60.00 (mL/min/1.73m2) 12/10/19 06:39 Glucose 94 mg/dL (74-106) 12/10/19 06:39 Calcium 8.3 mg/dL (8.5-10.1) L 12/10/19 06:39 Magnesium 2.0 mg/dL (1.8-2.4) 12/10/19 06:39 Total Bilirubin 0.4 mg/dL (0.2-1.0) 12/10/19 06:39 Conjugated Bilirubin 0.09 mg/dL (0.00-0.20) 12/10/19 06:39 GGT 33 U/L (5-55) 12/10/19 06:39 AST 10 U/L (15-37) L 12/10/19 06:39 ALT 15 U/L (14-59) 12/10/19 06:39 Alkaline Phosphatase 65 U/L (46-116) 12/10/19 06:39 Troponin I Cancelled 12/09/19 04:05 C-Reactive Protein 2.24 mg/dL (0.0-0.3) H 12/10/19 06:39 Total Protein 6.1 g/dL (6.4-8.2) L 12/10/19 06:39 Albumin 3.2 g/dL (3.4-5.0) L 12/10/19 06:39 Lipase 1628 U/L (73-393) H 12/10/19 06:39
[2019-12-10] MEDS: Pantoprazole 40 MG VIAL IVP (15:31)
[2019-12-10 15:36] VITALS: BP 131/73; PULSE 74; RESP 18; TEMP 36.7; O2SAT 97
--- NOTE | 2019-12-10 15:49 | W.PM.PROGNOT ---
Date of Service Date of service: 12/10/19 Time of Service: 15:49 Assessment and Plan Assessment and plan (1) Acute pancreatitis: Start date: 12/10/19 Start time: 16:02 Status: Acute Assessment and plan: Otherwise healthy female with acute pancreatitis that continues to have pain. Unknown etiology, work up for sjorgens and lupus. U/s negative for GB. Denies alcohol use. continue pain medication. Trend lipase, keep NPO until pain is better. 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 Eliquis on hold at this time due to risk for hemorrhage. SCDs and enoxaparin. Continue to monitor. Subjective Subjective Patient reports: still having pain Interval history since last seen: Continues to have pain. Unable to tolerate clears will keep NPO. She denies CP, SOB, N/V/D. No other complaints Exam Narrative Exam Narrative: Const: Sitting up in bed, appears comfortable. NAD AAOx3 answering questions smiling Eyes: PERRLA, EOMI Neck: no lymphedema, goiter or enlarged thyroid Resp: LSC breathing unlabored able to speak complete sentences Cardio: RRR no murmur GI: abd soft, tender to LUQ BSx4 hypoactive. Skin: no rashes,wounds Extrem: No edema, clubbing, cyanosis. Objective Objective Clinical Data: Abnormal lab results 12/10/19 12/10/19 12/10/19 Range/Units 06:39 06:39 06:39 RBC 3.58 L (4.00-5.20) m/cumm Hgb 10.4 L D (12.0-15.5) g/dL Hct 32.9 L (36.0-46.0) % MCHC 31.6 L (32.0-36.0) g/dL MPV 11.5 H (8.0-11.0) fL Calcium 8.3 L (8.5-10.1) mg/dL AST 10 L (15-37) U/L C-Reactive Protein 2.24 H (0.0-0.3) mg/dL Total Protein 6.1 L (6.4-8.2) g/dL Albumin 3.2 L (3.4-5.0) g/dL Lipase 1628 H (73-393) U/L Vital Signs Temperature 36.7 C 12/10/19 15:36 Temperature Source Tympanic 12/10/19 15:36 Pulse 74 12/10/19 15:36 Pulse Rhythm Regular 12/10/19 10:12 Pulse 64 12/09/19 04:01 Respiratory Rate 18 12/10/19 15:36 Respiratory Effort Non-Labored 12/10/19 10:12 Respiratory Depth Normal 12/10/19 10:12 Respiratory Pattern Normal 12/10/19 10:12 Blood Pressure 131/73 12/10/19 15:36 Blood Pressure Mean 97 12/09/19 04:00 Pulse Oximetry 97 12/10/19 15:36 Oxygen Delivery Method Room Air 12/10/19 15:36 Oxygen Flow Rate 0 12/10/19 15:36 Pain Level 7 12/10/19 15:36 Intake & Output 12/09/19 12/10/19 12/10/19 23:59 11:59 23:59 Intake Total 1934 Output Total 200 / 400 1250 / 1250 Balance -200 / 1200 685 / 685 Intake: IV 1934 Output: Urine 200 / 200 1250 / 1250 Other: Urine Color Dark Shannan Yellow Urine Appearance Clear Clear Urine Odor Normal Normal Emesis Description None Voiding Methods Toilet Toilet Laboratory Results WBC 6.94 k/cumm (4.4-10.8) 12/10/19 06:39 RBC 3.58 m/cumm (4.00-5.20) L 12/10/19 06:39 Hgb 10.4 g/dL (12.0-15.5) L D 12/10/19 06:39 Hct 32.9 % (36.0-46.0) L 12/10/19 06:39 MCV 91.9 fL (80-95) 12/10/19 06:39 MCH 29.1 pg (27.0-33.0) 12/10/19 06:39 MCHC 31.6 g/dL (32.0-36.0) L 12/10/19 06:39 RDW 14.0 % (11.7-14.6) 12/10/19 06:39 Plt Count 185 x1000/uL (130-400) 12/10/19 06:39 MPV 11.5 fL (8.0-11.0) H 12/10/19 06:39 Immature Gran % 0.1 % 12/09/19 00:56 Neutrophils % 66.1 12/09/19 00:56 Lymphocytes % 24.8 12/09/19 00:56 Monocytes % 7.6 12/09/19 00:56 Eosinophils % 1.0 12/09/19 00:56 Basophils % 0.4 12/09/19 00:56 Absolute Neutrophils 6.32 k/cumm (1.2-6.7) 12/09/19 00:56 Absolute Lymphocytes 2.38 k/cumm (1.2-3.4) 12/09/19 00:56 Absolute Monocytes 0.73 k/cumm (0.11-0.7) H 12/09/19 00:56 Absolute Eosinophils 0.10 k/cumm (0.0-0.7) 12/09/19 00:56 Absolute Basophils 0.04 k/cumm (0.0-0.2) 12/09/19 00:56 Sodium 141 mmol/L (136-145) 12/10/19 06:39 Potassium 3.8 mmol/L (3.5-5.1) 12/10/19 06:39 Chloride 106 mmol/L (98-107) 12/10/19 06:39 Carbon Dioxide 28.1 mmol/L (21.0-32.0) 12/10/19 06:39 Anion Gap 6.9 mmol/L (3-11) 12/10/19 06:39 BUN 13 mg/dL (7-18) 12/10/19 06:39 Creatinine 0.82 mg/dL (0.55-1.02) 12/10/19 06:39 Estimated GFR/1.73 m2 >= 60.00 (mL/min/1.73m2) 12/10/19 06:39 Glucose 94 mg/dL (74-106) 12/10/19 06:39 Calcium 8.3 mg/dL (8.5-10.1) L 12/10/19 06:39 Magnesium 2.0 mg/dL (1.8-2.4) 12/10/19 06:39 Total Bilirubin 0.4 mg/dL (0.2-1.0) 12/10/19 06:39 Conjugated Bilirubin 0.09 mg/dL (0.00-0.20) 12/10/19 06:39 GGT 33 U/L (5-55) 12/10/19 06:39 AST 10 U/L (15-37) L 12/10/19 06:39 ALT 15 U/L (14-59) 12/10/19 06:39 Alkaline Phosphatase 65 U/L (46-116) 12/10/19 06:39 Troponin I Cancelled 12/09/19 04:05 C-Reactive Protein 2.24 mg/dL (0.0-0.3) H 12/10/19 06:39 Total Protein 6.1 g/dL (6.4-8.2) L 12/10/19 06:39 Albumin 3.2 g/dL (3.4-5.0) L 12/10/19 06:39 Lipase 1628 U/L (73-393) H 12/10/19 06:39
--- NOTE | 2019-12-10 17:49 | CMPROGNOTE_ITS ---
- If Service Date Differs Date of service: 12/10/19 Time of Service: 17:49 Care Management Progress Note S/O: Angie was sitting up in bed when CM came to see her. She had taken a shower earlier and stated that she felt much better because of it. 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 Overall, Angie stated she is improving but still has severe pain at times. She is still only receiving ice chips for oral intake. A Angie is a pleasant 59 year old woman admitted to [facility] on 12/09/19 with pancreatitis. P: Angie will likely be discharged home with no new services. She will follow up with her PCP and discharge plan of care. CM will continue to support patient, family and discharge planning needs.
[2019-12-10] MEDS: Lactated Ringers 1,000 ML 100 ML IV (19:35)
[2019-12-10 19:43] VITALS: BP 139/82; PULSE 71; RESP 16; TEMP 37.5; O2SAT 97
[2019-12-10 23:25] VITALS: BP 108/65; PULSE 76; RESP 17; TEMP 36.7; O2SAT 96
[2019-12-11 03:59] VITALS: BP 128/80; PULSE 58; RESP 16; TEMP 37.4; O2SAT 95
[2019-12-11] MEDS: Lactated Ringers 1,000 ML 100 ML IV (05:37)
[2019-12-11 07:18] LABS: Abs Immature Grans 0.01 k/cumm (0.0-0.09); Absolute Basophil Count 0.02 k/cumm (0.0-0.2); Absolute Eosinophil Count 0.05 k/cumm (0.0-0.7); Absolute Lymphocyte Count 1.36 k/cumm (1.2-3.4); Absolute Monocyte Count 0.49 k/cumm (0.11-0.7); Absolute Neutrophil Count 4.72 k/cumm (1.2-6.7); Basophils % 0.3; Eosinophils % 0.8; HCT 33.1 % (36.0-46.0); HGB 10.6 g/dL (12.0-15.5); Immature Grans % 0.2 %; Lymphocytes % 20.5; Mean Corpuscular Hemoglobin 29.3 pg (27.0-33.0); Mean Corpuscular Volume 91.4 fL (80-95); Mean Platelet Volume 11.6 fL (8.0-11.0); Monocytes % 7.4; Neutrophils % 70.8; Platelet Count 192 x1000/uL (130-400); RBC 3.62 m/cumm (4.00-5.20); RBC Distribution Width 13.4 % (11.7-14.6); White Blood Cell Count 6.65 k/cumm (4.4-10.8)
[2019-12-11 07:30] VITALS: BP 121/72; PULSE 66; RESP 16; TEMP 36.4; O2SAT 96
[2019-12-11 07:36] LABS: Anion Gap 7.7 mmol/L (3-11); BUN 10 mg/dL (7-18); C-Reactive Protein 3.63 mg/dL (0.0-0.3); CO2 27.3 mmol/L (21.0-32.0); Calcium 7.9 mg/dL (8.5-10.1); Chloride 105 mmol/L (98-107); Glucose 89 mg/dL (74-106); Lipase 517 U/L (73-393); Potassium 3.7 mmol/L (3.5-5.1); Sodium 140 mmol/L (136-145)
[2019-12-11] MEDS: Enoxaparin 40 MG/0.4 ML SYR SC (08:30)
--- NOTE | 2019-12-11 09:43 | W.PM.PROGNOT ---
Date of Service Date of service: 12/11/19 Time of Service: 09:43 Assessment and Plan Assessment and plan (1) Acute pancreatitis: Start date: 12/11/19 Start time: 09:45 Status: Acute Assessment and plan: On clears, appears to be tolerating. No nausea or vomiting. Unable to get a clear answer on pain improvement. Will monitor pain medication for better idea. CRP up if pain continues consider MRCP tomorrow. Surgery to see patient as well. Awaiting send out labs for lupus and sjgoren. 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 Eliquis on hold at this time due to risk for hemorrhage. SCDs and enoxaparin. Continue to monitor. Subjective Subjective Patient reports: still having pain Interval history since last seen: Patient c/o still having pain. Unclear answer if better or worse patient just says it is there. Asked several times. Will monitor frequency of pain medication administration to get a clear answer. Nausea is better. Denies CP, SOB. Ambulatory to commode. Exam Narrative Exam Narrative: Const: Sitting up in bed, appears comfortable. NAD AAOx3 answering questions smiling Eyes: PERRLA, EOMI Neck: no lymphedema, goiter or enlarged thyroid Resp: LSC breathing unlabored able to speak complete sentences Cardio: RRR no murmur GI: abd soft, tender to LUQ BSx4 active. Skin: no rashes,wounds Extrem: No edema, clubbing, cyanosis. Objective Objective Clinical Data: Abnormal lab results 12/11/19 12/11/19 Range/Units 06:30 06:30 RBC 3.62 L (4.00-5.20) m/cumm Hgb 10.6 L (12.0-15.5) g/dL Hct 33.1 L (36.0-46.0) % MPV 11.6 H (8.0-11.0) fL Calcium 7.9 L (8.5-10.1) mg/dL C-Reactive Protein 3.63 H (0.0-0.3) mg/dL Lipase 517 H (73-393) U/L Vital Signs Temperature 36.4 C L 12/11/19 07:30 Temperature Source Tympanic 12/11/19 07:30 Pulse 66 12/11/19 07:30 Pulse Rhythm Regular 12/11/19 00:37 Pulse 64 12/09/19 04:01 Respiratory Rate 16 12/11/19 07:30 Respiratory Effort Non-Labored 12/11/19 00:37 Respiratory Depth Normal 12/11/19 00:37 Respiratory Pattern Normal 12/11/19 00:37 Blood Pressure 121/72 12/11/19 07:30 Blood Pressure Mean 97 12/09/19 04:00 Pulse Oximetry 96 12/11/19 07:30 Oxygen Delivery Method Room Air 12/11/19 07:30 Oxygen Flow Rate 0 12/11/19 07:30 Pain Level 9 12/11/19 09:07 Intake & Output 12/10/19 12/10/19 12/11/19 11:59 23:59 11:59 Intake Total 1935 / 2955 1020 / 2955 1000 / 1000 Output Total 1250 / 2200 950 / 2200 1700 / 1700 Balance 685 / 755 70 / 755 -700 / -700 Intake: IV 1935 / 2955 1020 / 2955 1000 / 1000 Output: Urine 1250 / 2200 950 / 2200 1700 / 1700 Other: Urine Color Yellow Light Shannan Dark Shannan Urine Appearance Clear Clear Clear Urine Odor Normal None None Emesis Description None Voiding Methods Toilet Toilet Toilet Laboratory Results WBC 6.65 k/cumm (4.4-10.8) 12/11/19 06:30 RBC 3.62 m/cumm (4.00-5.20) L 12/11/19 06:30 Hgb 10.6 g/dL (12.0-15.5) L 12/11/19 06:30 Hct 33.1 % (36.0-46.0) L 12/11/19 06:30 MCV 91.4 fL (80-95) 12/11/19 06:30 MCH 29.3 pg (27.0-33.0) 12/11/19 06:30 MCHC 32.0 g/dL (32.0-36.0) 12/11/19 06:30 RDW 13.4 % (11.7-14.6) 12/11/19 06:30 Plt Count 192 x1000/uL (130-400) 12/11/19 06:30 MPV 11.6 fL (8.0-11.0) H 12/11/19 06:30 Immature Gran % 0.2 % 12/11/19 06:30 Neutrophils % 70.8 12/11/19 06:30 Lymphocytes % 20.5 12/11/19 06:30 Monocytes % 7.4 12/11/19 06:30 Eosinophils % 0.8 12/11/19 06:30 Basophils % 0.3 12/11/19 06:30 Absolute Neutrophils 4.72 k/cumm (1.2-6.7) 12/11/19 06:30 Absolute Lymphocytes 1.36 k/cumm (1.2-3.4) 12/11/19 06:30 Absolute Monocytes 0.49 k/cumm (0.11-0.7) 12/11/19 06:30 Absolute Eosinophils 0.05 k/cumm (0.0-0.7) 12/11/19 06:30 Absolute Basophils 0.02 k/cumm (0.0-0.2) 12/11/19 06:30 Sodium 140 mmol/L (136-145) 12/11/19 06:30 Potassium 3.7 mmol/L (3.5-5.1) 12/11/19 06:30 Chloride 105 mmol/L (98-107) 12/11/19 06:30 Carbon Dioxide 27.3 mmol/L (21.0-32.0) 12/11/19 06:30 Anion Gap 7.7 mmol/L (3-11) 12/11/19 06:30 BUN 10 mg/dL (7-18) 12/11/19 06:30 Creatinine 0.80 mg/dL (0.55-1.02) 12/11/19 06:30 Estimated GFR/1.73 m2 >= 60.00 (mL/min/1.73m2) 12/11/19 06:30 Glucose 89 mg/dL (74-106) 12/11/19 06:30 Calcium 7.9 mg/dL (8.5-10.1) L 12/11/19 06:30 Magnesium 2.0 mg/dL (1.8-2.4) 12/11/19 06:30 Total Bilirubin 0.4 mg/dL (0.2-1.0) 12/10/19 06:39 Conjugated Bilirubin 0.09 mg/dL (0.00-0.20) 12/10/19 06:39 GGT 33 U/L (5-55) 12/10/19 06:39 AST 10 U/L (15-37) L 12/10/19 06:39 ALT 15 U/L (14-59) 12/10/19 06:39 Alkaline Phosphatase 65 U/L (46-116) 12/10/19 06:39 Troponin I Cancelled 12/09/19 04:05 C-Reactive Protein 3.63 mg/dL (0.0-0.3) H 12/11/19 06:30 Total Protein 6.1 g/dL (6.4-8.2) L 12/10/19 06:39 Albumin 3.2 g/dL (3.4-5.0) L 12/10/19 06:39 Lipase 517 U/L (73-393) H 12/11/19 06:30
[2019-12-11 10:07] VITALS: O2SAT 97
[2019-12-11] MEDS: Ondansetron 4 MG/2 ML VIAL IVP (10:15)
[2019-12-11 11:20] VITALS: BP 124/68; PULSE 67; RESP 16; TEMP 36.6; O2SAT 97
--- NOTE | 2019-12-11 11:57 | W.PM.PROGNOT ---
Date of Service Date of service: 12/11/19 Time of Service: 11:57 Assessment and Plan Assessment and plan (1) Acute pancreatitis: Status: Acute Assessment and plan: lipase is improving. CRP is going up. pt has pain out of proportion to labs. D/w hosp. will check MRI of pancreas/MRCP in am. Make sure there is no pseudocyst formation or necrosis. cont supportive care Subjective Subjective Interval history since last seen: pt woke up early this am w/ intense pain and nausea. She did require IV pain meds/nasuea meds. she is feeling better now and tolerating a popsicle. SHe has been up walking. She notes signif fatigue. no headaches. No CP or SOB. no productive cough. no dysuria. no leg pain or swelling. Exam Const General: cooperative, healthy appearing, comfortable, no acute distress, well developed and well groomed Nutritional Appearance: average body habitus and well nourished Orientation: alert, awake and oriented x3 HENMT Head: normal to inspection, normocephalic and atraumatic Ears: hearing grossly normal bilaterally and external ears normal General nose exam: external nose normal Face and sinus: normal facial exam and sinuses nontender Mouth: oral mucosae normal, lip normal, tongue normal and moist mucous membranes Teeth and gingiva: dentition normal Eyes General: appearance normal, both eyes and all related structures Conjunctivae: conjunctivae normal Sclera: sclerae normal Pupils: PERRL Neck Neck: normal visual inspection and full ROM Chest Chest: normal inspection of the chest Resp Effort & Inspection: normal respiratory effort, able to speak in complete sentences, no cough, no nasal flaring, not tachypneic and no use of accessory muscles Auscultation: clear to auscultation bilaterally, no rales, no rhonchi and no wheezes Cardio Jugular venous pressure: no JVD Rate: regular rate Rhythm: regular rhythm GI Inspection: normal to inspection, no edema and non-distended Palpation: soft, no masses, tender in the epigastrum and No ascites Auscultation: normal bowel sounds Other: pain out of propertion to labs and CT findings. Skin General skin exam: no rashes or lesions noted Trauma: no lacerations or abrasions Neuro General: alert, oriented x3, oriented, gait normal, moves all extremities, no focal motor deficits and CN's II-XI intact bilaterally Cognition: normal cognition Speech: speech normal Gait: normal gait Motor: muscle tone normal throughout Extrem General: normal to inspection, full ROM and no clubbing, cyanosis or edema Psych Appearance: grossly normal and well kempt Mental Status: mental status grossly normal Speech and Movement: speech and movement normal Affect: normal affect Objective Objective Clinical Data: Abnormal lab results 12/11/19 12/11/19 Range/Units 06:30 06:30 RBC 3.62 L (4.00-5.20) m/cumm Hgb 10.6 L (12.0-15.5) g/dL Hct 33.1 L (36.0-46.0) % MPV 11.6 H (8.0-11.0) fL Calcium 7.9 L (8.5-10.1) mg/dL C-Reactive Protein 3.63 H (0.0-0.3) mg/dL Lipase 517 H (73-393) U/L Vital Signs Temperature 36.4 C L 12/11/19 07:30 Temperature Source Tympanic 12/11/19 07:30 Pulse 66 12/11/19 07:30 Pulse Rhythm Regular 12/11/19 11:12 Pulse 64 12/09/19 04:01 Respiratory Rate 16 12/11/19 07:30 Respiratory Effort Non-Labored 12/11/19 11:12 Respiratory Depth Normal 12/11/19 11:12 Respiratory Pattern Irregular 12/11/19 11:12 Blood Pressure 121/72 12/11/19 07:30 Blood Pressure Mean 97 12/09/19 04:00 Pulse Oximetry 96 12/11/19 07:30 Oxygen Delivery Method Room Air 12/11/19 07:30 Oxygen Flow Rate 0 12/11/19 07:30 Pain Level 9 12/11/19 09:07 Intake & Output 12/10/19 12/10/19 12/11/19 11:59 23:59 11:59 Intake Total 1935 / 2955 1020 / 2955 1435 / 1435 Output Total 1250 / 2200 950 / 2200 2550 / 2550 Balance 685 / 755 70 / 755 -1115 / -1115 Intake: IV 1935 / 2955 1020 / 2955 1435 / 1435 Output: Urine 1250 / 2200 950 / 2200 2550 / 2550 Other: Urine Color Yellow Light Shannan Dark Shannan Urine Appearance Clear Clear Clear Urine Odor Normal None None Emesis Description None Voiding Methods Toilet Toilet Toilet Laboratory Results WBC 6.65 k/cumm (4.4-10.8) 12/11/19 06:30 RBC 3.62 m/cumm (4.00-5.20) L 12/11/19 06:30 Hgb 10.6 g/dL (12.0-15.5) L 12/11/19 06:30 Hct 33.1 % (36.0-46.0) L 12/11/19 06:30 MCV 91.4 fL (80-95) 12/11/19 06:30 MCH 29.3 pg (27.0-33.0) 12/11/19 06:30 MCHC 32.0 g/dL (32.0-36.0) 12/11/19 06:30 RDW 13.4 % (11.7-14.6) 12/11/19 06:30 Plt Count 192 x1000/uL (130-400) 12/11/19 06:30 MPV 11.6 fL (8.0-11.0) H 12/11/19 06:30 Immature Gran % 0.2 % 12/11/19 06:30 Neutrophils % 70.8 12/11/19 06:30 Lymphocytes % 20.5 12/11/19 06:30 Monocytes % 7.4 12/11/19 06:30 Eosinophils % 0.8 12/11/19 06:30 Basophils % 0.3 12/11/19 06:30 Absolute Neutrophils 4.72 k/cumm (1.2-6.7) 12/11/19 06:30 Absolute Lymphocytes 1.36 k/cumm (1.2-3.4) 12/11/19 06:30 Absolute Monocytes 0.49 k/cumm (0.11-0.7) 12/11/19 06:30 Absolute Eosinophils 0.05 k/cumm (0.0-0.7) 12/11/19 06:30 Absolute Basophils 0.02 k/cumm (0.0-0.2) 12/11/19 06:30 Sodium 140 mmol/L (136-145) 12/11/19 06:30 Potassium 3.7 mmol/L (3.5-5.1) 12/11/19 06:30 Chloride 105 mmol/L (98-107) 12/11/19 06:30 Carbon Dioxide 27.3 mmol/L (21.0-32.0) 12/11/19 06:30 Anion Gap 7.7 mmol/L (3-11) 12/11/19 06:30 BUN 10 mg/dL (7-18) 12/11/19 06:30 Creatinine 0.80 mg/dL (0.55-1.02) 12/11/19 06:30 Estimated GFR/1.73 m2 >= 60.00 (mL/min/1.73m2) 12/11/19 06:30 Glucose 89 mg/dL (74-106) 12/11/19 06:30 Calcium 7.9 mg/dL (8.5-10.1) L 12/11/19 06:30 Magnesium 2.0 mg/dL (1.8-2.4) 12/11/19 06:30 Total Bilirubin 0.4 mg/dL (0.2-1.0) 12/10/19 06:39 Conjugated Bilirubin 0.09 mg/dL (0.00-0.20) 12/10/19 06:39 GGT 33 U/L (5-55) 12/10/19 06:39 AST 10 U/L (15-37) L 12/10/19 06:39 ALT 15 U/L (14-59) 12/10/19 06:39 Alkaline Phosphatase 65 U/L (46-116) 12/10/19 06:39 Troponin I Cancelled 12/09/19 04:05 C-Reactive Protein 3.63 mg/dL (0.0-0.3) H 12/11/19 06:30 Total Protein 6.1 g/dL (6.4-8.2) L 12/10/19 06:39 Albumin 3.2 g/dL (3.4-5.0) L 12/10/19 06:39 Lipase 517 U/L (73-393) H 12/11/19 06:30
[2019-12-11] MEDS: Lactated Ringers 1,000 ML 125 ML IV ×2 (14:38→22:30)
[2019-12-11 15:58] VITALS: BP 128/80; PULSE 62; RESP 17; TEMP 36.9; O2SAT 97
[2019-12-11 16:10] LABS: Rheumatoid Factor <8.6 IU/mL (<12.0)
[2019-12-11] MEDS: Pantoprazole 40 MG VIAL IVP (16:15)
--- NOTE | 2019-12-11 16:18 | PDOC.CMPRO ---
- If Service Date Differs Date of service: 12/11/19 Time of Service: 16:18 Care Management Progress Note S/O: Angie was sitting up in a chair when CM came to see her. She shared that she had had a rough night last night with an increase in pain. She is unsure why, since she had been feeling better during the day yesterday. Both of her children are leaving on vacation tomorrow but to different places. She shared that her daughter is worried about her but her son is just focused on getting the house ready for her return and cleaning and shopping ahead of time to help her. Angie has been advanced to clear liquids and she extolled the virtues of ice pops today. Will likely have MRCP tomorrow if pain continues. A: Angie is a pleasant 59 year old woman admitted to [facility] on 12/09/19 with pancreatitis. P: Angie will likely be discharged home with no new services. She will follow up with her PCP and discharge plan of care. CM will continue to support patient, family and discharge planning needs.
[2019-12-11 19:26] VITALS: BP 153/86; PULSE 56; RESP 19; TEMP 36.8; O2SAT 97
[2019-12-11] MEDS: Normal Saline 50 ML 125 ML IV (19:49)
[2019-12-12] VITALS (7 sets, daily range): BP systolic 114–137; BP diastolic 68–84; PULSE 56–64; RESP 16–19; TEMP 36–37.4; O2SAT 96–98
--- NOTE | 2019-12-12 | DI.MRI_ITS ---
EXAM: MR ABDOMEN WO CLINICAL HISTORY: Acute pancreatitis MRCP. TECHNIQUE: Multiplanar multisequence MRI was performed. COMPARISON: No exams were available for comparison FINDINGS: MRCP was performed according to the usual protocol. Incidental note is made of a 8 millimeter left u pper pole renal cyst. Otherwise the kidneys are unremarkable with no hydronephrosis. Spleen appears normal. Normal appearance of the pancreas. No focal hepatic lesion identified. Unremarkable appearance of gallbladder. The intra and extrahepa tic bile ducts appear normal. Pancreatic duct appears normal. No evidence of obstruction. No stone identified. IMPRESSION: Negative MRCP DATA REPOSITORY:
[2019-12-12] MEDS: Normal Saline Flush 10 ML SYR IVP ×2 (02:36→16:56)
[2019-12-12] MEDS: Lactated Ringers 1,000 ML 125 ML IV (06:25)
[2019-12-12 06:56] LABS: Abs Immature Grans 0.01 k/cumm (0.0-0.09); Absolute Basophil Count 0.02 k/cumm (0.0-0.2); Absolute Eosinophil Count 0.05 k/cumm (0.0-0.7); Absolute Lymphocyte Count 1.29 k/cumm (1.2-3.4); Absolute Monocyte Count 0.39 k/cumm (0.11-0.7); Absolute Neutrophil Count 3.28 k/cumm (1.2-6.7); Basophils % 0.4; HCT 32.6 % (36.0-46.0); HGB 10.4 g/dL (12.0-15.5); Immature Grans % 0.2 %; Lymphocytes % 25.6; Mean Corp. HGB Concentration 31.9 g/dL (32.0-36.0); Mean Corpuscular Hemoglobin 28.9 pg (27.0-33.0); Mean Corpuscular Volume 90.6 fL (80-95); Mean Platelet Volume 11.2 fL (8.0-11.0); Monocytes % 7.7; Neutrophils % 65.1; Platelet Count 185 x1000/uL (130-400); RBC Distribution Width 13.2 % (11.7-14.6); White Blood Cell Count 5.04 k/cumm (4.4-10.8)
[2019-12-12 07:21] LABS: Anion Gap 6.3 mmol/L (3-11); BUN 7 mg/dL (7-18); CO2 28.7 mmol/L (21.0-32.0); CREATININE 0.75 mg/dL (0.55-1.02); Calcium 8.4 mg/dL (8.5-10.1); Chloride 106 mmol/L (98-107); Glucose 95 mg/dL (74-106); Potassium 3.9 mmol/L (3.5-5.1); Sodium 141 mmol/L (136-145)
[2019-12-12 10:20] LABS: Ferritin 120 ng/mL (8-252)
[2019-12-12] MEDS: Enoxaparin 40 MG/0.4 ML SYR SC (10:25)
[2019-12-12 10:36] LABS: C-Reactive Protein 3.43 mg/dL (0.0-0.3); Lipase 354 U/L (73-393)
--- NOTE | 2019-12-12 11:59 | W.PM.PROGNOT ---
Date of Service Date of service: 12/12/19 Time of Service: 11:59 Assessment and Plan Assessment and plan (1) Acute pancreatitis: Status: Acute Assessment and plan: -idiopathic for etiology -pt had pain out of propertion to lab/CT findings and checking MRI/MRCP today cont supportive care (2) DVT (deep venous thrombosis): Status: Resolved Subjective Subjective Interval history since last seen: pt is feeling better today. less pain and nausea. She has been tolerating cl liquids and would like to try eating more substial foods. low fat diet. no headaches. No CP or SOB. no productive cough. no dysuria. no leg pain or swelling. MR of panc was neg Exam Const General: cooperative, healthy appearing, comfortable, no acute distress, well developed and well groomed Nutritional Appearance: average body habitus and well nourished Orientation: alert, awake and oriented x3 HENMT Head: normal to inspection, normocephalic and atraumatic Ears: hearing grossly normal bilaterally and external ears normal General nose exam: external nose normal Face and sinus: normal facial exam and sinuses nontender Mouth: oral mucosae normal, lip normal, tongue normal and moist mucous membranes Teeth and gingiva: dentition normal Eyes General: appearance normal, both eyes and all related structures Conjunctivae: conjunctivae normal Sclera: sclerae normal Pupils: PERRL Neck Neck: normal visual inspection and full ROM Chest Chest: normal inspection of the chest Resp Effort & Inspection: normal respiratory effort, able to speak in complete sentences, no cough, no nasal flaring, not tachypneic and no use of accessory muscles Auscultation: clear to auscultation bilaterally, no rales, no rhonchi and no wheezes Cardio Jugular venous pressure: no JVD Rate: regular rate Rhythm: regular rhythm GI Inspection: normal to inspection, no edema and non-distended Palpation: soft, no masses, tender (mild. ) in the epigastrum and No ascites Auscultation: normal bowel sounds Skin General skin exam: no rashes or lesions noted Trauma: no lacerations or abrasions Neuro General: alert, oriented x3, oriented, gait normal, moves all extremities, no focal motor deficits and CN's II-XI intact bilaterally Cognition: normal cognition Speech: speech normal Gait: normal gait Motor: muscle tone normal throughout Extrem General: normal to inspection, full ROM and no clubbing, cyanosis or edema Psych Appearance: grossly normal and well kempt Mental Status: mental status grossly normal Speech and Movement: speech and movement normal Affect: normal affect Objective Objective Clinical Data: Abnormal lab results 12/12/19 12/12/19 Range/Units 06:25 06:25 RBC 3.60 L (4.00-5.20) m/cumm Hgb 10.4 L (12.0-15.5) g/dL Hct 32.6 L (36.0-46.0) % MCHC 31.9 L (32.0-36.0) g/dL MPV 11.2 H (8.0-11.0) fL Calcium 8.4 L (8.5-10.1) mg/dL C-Reactive Protein 3.43 H (0.0-0.3) mg/dL Vital Signs Temperature 36.5 C 12/12/19 11:16 Temperature Source Tympanic 12/12/19 11:16 Pulse 59 L 12/12/19 11:16 Pulse Rhythm Regular 12/12/19 08:15 Pulse 64 12/09/19 04:01 Respiratory Rate 19 12/12/19 11:16 Respiratory Effort 12/12/19 08:15 Respiratory Depth Normal 12/12/19 08:15 Respiratory Pattern Normal 12/12/19 08:15 Blood Pressure 123/72 12/12/19 11:16 Blood Pressure Mean 97 12/09/19 04:00 Pulse Oximetry 96 12/12/19 11:16 Oxygen Delivery Method Room Air 12/12/19 11:16 Oxygen Flow Rate 0 12/12/19 11:16 Pain Level 4 12/12/19 11:16 Intake & Output 12/11/19 12/11/19 12/12/19 11:59 23:59 11:59 Intake Total 1435 / 4353.333 2918.333 / 4353.333 1491.666 / 1491.666 Output Total 2550 / 4050 1500 / 4050 2100 / 2099 Balance -1115 / 156.673 9326.333 / 303.333 -608.334 / -608.334 Intake: IV 1435 / 3033.333 1598.333 / 3033.333 1491.666 / 1491.666 Oral 1320 / 1320 0 / 0 Output: Urine 2550 / 4050 1500 / 4050 2100 / 2100 Other: Urine Color Dark Barbie Light Barbie Straw Urine Appearance Clear Clear Clear Urine Odor None None None 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, 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 from dark barbie this am DARK YELLOW URINE Voiding Methods Toilet Toilet Toilet Laboratory Results WBC 5.04 k/cumm (4.4-10.8) 12/12/19 06:25 RBC 3.60 m/cumm (4.00-5.20) L 12/12/19 06:25 Hgb 10.4 g/dL (12.0-15.5) L 12/12/19 06:25 Hct 32.6 % (36.0-46.0) L 12/12/19 06:25 MCV 90.6 fL (80-95) 12/12/19 06:25 MCH 28.9 pg (27.0-33.0) 12/12/19 06:25 MCHC 31.9 g/dL (32.0-36.0) L 12/12/19 06:25 RDW 13.2 % (11.7-14.6) 12/12/19 06:25 Plt Count 185 x1000/uL (130-400) 12/12/19 06:25 MPV 11.2 fL (8.0-11.0) H 12/12/19 06:25 Immature Gran % 0.2 % 12/12/19 06:25 Neutrophils % 65.1 12/12/19 06:25 Lymphocytes % 25.6 12/12/19 06:25 Monocytes % 7.7 12/12/19 06:25 Eosinophils % 1.0 12/12/19 06:25 Basophils % 0.4 12/12/19 06:25 Absolute Neutrophils 3.28 k/cumm (1.2-6.7) 12/12/19 06:25 Absolute Lymphocytes 1.29 k/cumm (1.2-3.4) 12/12/19 06:25 Absolute Monocytes 0.39 k/cumm (0.11-0.7) 12/12/19 06:25 Absolute Eosinophils 0.05 k/cumm (0.0-0.7) 12/12/19 06:25 Absolute Basophils 0.02 k/cumm (0.0-0.2) 12/12/19 06:25 Sodium 141 mmol/L (136-145) 12/12/19 06:25 Potassium 3.9 mmol/L (3.5-5.1) 12/12/19 06:25 Chloride 106 mmol/L (98-107) 12/12/19 06:25 Carbon Dioxide 28.7 mmol/L (21.0-32.0) 12/12/19 06:25 Anion Gap 6.3 mmol/L (3-11) 12/12/19 06:25 BUN 7 mg/dL (7-18) 12/12/19 06:25 Creatinine 0.75 mg/dL (0.55-1.02) 12/12/19 06:25 Estimated GFR/1.73 m2 >= 60.00 (mL/min/1.73m2) 12/12/19 06:25 Glucose 95 mg/dL (74-106) 12/12/19 06:25 Calcium 8.4 mg/dL (8.5-10.1) L 12/12/19 06:25 Magnesium 2.0 mg/dL (1.8-2.4) 12/12/19 06:25 Ferritin 120 ng/mL (8-252) 12/12/19 06:25 Total Bilirubin 0.4 mg/dL (0.2-1.0) 12/10/19 06:39 Conjugated Bilirubin 0.09 mg/dL (0.00-0.20) 12/10/19 06:39 GGT 33 U/L (5-55) 12/10/19 06:39 AST 10 U/L (15-37) L 12/10/19 06:39 ALT 15 U/L (14-59) 12/10/19 06:39 Alkaline Phosphatase 65 U/L (46-116) 12/10/19 06:39 Troponin I Cancelled 12/09/19 04:05 C-Reactive Protein 3.43 mg/dL (0.0-0.3) H 12/12/19 06:25 Total Protein 6.1 g/dL (6.4-8.2) L 12/10/19 06:39 Albumin 3.2 g/dL (3.4-5.0) L 12/10/19 06:39 Lipase 354 U/L (73-393) 12/12/19 06:25 Rheumatoid Factor <8.6 IU/mL (<12.0) 12/10/19 06:39
--- NOTE | 2019-12-12 13:39 | W.PM.PROGNOT ---
Date of Service Date of service: 12/12/19 Time of Service: 13:40 Assessment and Plan Assessment and plan (1) Acute pancreatitis: Start date: 12/12/19 Start time: 13:41 Status: Acute Assessment and plan: On clears, appears to be tolerating. No nausea or vomiting. Does endorse some improvement in pain. CRP trending down. Immunology labs pending. MRCP negative. Continue to monitor. 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 Eliquis on hold at this time due to risk for hemorrhage. SCDs and enoxaparin. Continue to monitor. Subjective Subjective Patient reports: still having pain Interval history since last seen: continues to have pain. CRP 3.43 trending down. MRCP negative. Denies CP, SOB, N/V/D Exam Narrative Exam Narrative: Const: Sitting up in bed, appears comfortable. NAD AAOx3 answering questions smiling Eyes: PERRLA, EOMI Neck: no lymphedema, goiter or enlarged thyroid Resp: LSC breathing unlabored able to speak complete sentences Cardio: RRR no murmur GI: abd soft, tender to LUQ BSx4 active. Skin: no rashes,wounds Extrem: No edema, clubbing, cyanosis. Objective Objective Clinical Data: Abnormal lab results 12/12/19 12/12/19 Range/Units 06:25 06:25 RBC 3.60 L (4.00-5.20) m/cumm Hgb 10.4 L (12.0-15.5) g/dL Hct 32.6 L (36.0-46.0) % MCHC 31.9 L (32.0-36.0) g/dL MPV 11.2 H (8.0-11.0) fL Calcium 8.4 L (8.5-10.1) mg/dL C-Reactive Protein 3.43 H (0.0-0.3) mg/dL Vital Signs Temperature 36.5 C 12/12/19 11:16 Temperature Source Tympanic 12/12/19 11:16 Pulse 59 L 12/12/19 11:16 Pulse Rhythm Regular 12/12/19 08:15 Pulse 64 12/09/19 04:01 Respiratory Rate 19 12/12/19 11:16 Respiratory Effort 12/12/19 08:15 Respiratory Depth Normal 12/12/19 08:15 Respiratory Pattern Normal 12/12/19 08:15 Blood Pressure 123/72 12/12/19 11:16 Blood Pressure Mean 97 12/09/19 04:00 Pulse Oximetry 96 12/12/19 11:16 Oxygen Delivery Method Room Air 12/12/19 11:16 Oxygen Flow Rate 0 12/12/19 11:16 Pain Level 4 12/12/19 11:16 Intake & Output 12/11/19 12/12/19 12/12/19 23:59 11:59 23:59 Intake Total 2918.333 / 4353.333 1491.666 / 1491.666 Output Total 1500 / 4050 2100 / 2100 Balance 1418.333 / 303.333 -608.334 / -608.334 Intake: IV 1598.333 / 3033.333 1491.666 / 1491.666 Oral 1320 / 1320 0 / 0 Output: Urine 1500 / 4050 2100 / 2100 Other: Urine Color Light Barbie Straw Urine Appearance Clear Clear Urine Odor None None 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, 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 from dark barbie this am DARK YELLOW URINE Voiding Methods Toilet Toilet Laboratory Results WBC 5.04 k/cumm (4.4-10.8) 12/12/19 06:25 RBC 3.60 m/cumm (4.00-5.20) L 12/12/19 06:25 Hgb 10.4 g/dL (12.0-15.5) L 12/12/19 06:25 Hct 32.6 % (36.0-46.0) L 12/12/19 06:25 MCV 90.6 fL (80-95) 12/12/19 06:25 MCH 28.9 pg (27.0-33.0) 12/12/19 06:25 MCHC 31.9 g/dL (32.0-36.0) L 12/12/19 06:25 RDW 13.2 % (11.7-14.6) 12/12/19 06:25 Plt Count 185 x1000/uL (130-400) 12/12/19 06:25 MPV 11.2 fL (8.0-11.0) H 12/12/19 06:25 Immature Gran % 0.2 % 12/12/19 06:25 Neutrophils % 65.1 12/12/19 06:25 Lymphocytes % 25.6 12/12/19 06:25 Monocytes % 7.7 12/12/19 06:25 Eosinophils % 1.0 12/12/19 06:25 Basophils % 0.4 12/12/19 06:25 Absolute Neutrophils 3.28 k/cumm (1.2-6.7) 12/12/19 06:25 Absolute Lymphocytes 1.29 k/cumm (1.2-3.4) 12/12/19 06:25 Absolute Monocytes 0.39 k/cumm (0.11-0.7) 12/12/19 06:25 Absolute Eosinophils 0.05 k/cumm (0.0-0.7) 12/12/19 06:25 Absolute Basophils 0.02 k/cumm (0.0-0.2) 12/12/19 06:25 Sodium 141 mmol/L (136-145) 12/12/19 06:25 Potassium 3.9 mmol/L (3.5-5.1) 12/12/19 06:25 Chloride 106 mmol/L (98-107) 12/12/19 06:25 Carbon Dioxide 28.7 mmol/L (21.0-32.0) 12/12/19 06:25 Anion Gap 6.3 mmol/L (3-11) 12/12/19 06:25 BUN 7 mg/dL (7-18) 12/12/19 06:25 Creatinine 0.75 mg/dL (0.55-1.02) 12/12/19 06:25 Estimated GFR/1.73 m2 >= 60.00 (mL/min/1.73m2) 12/12/19 06:25 Glucose 95 mg/dL (74-106) 12/12/19 06:25 Calcium 8.4 mg/dL (8.5-10.1) L 12/12/19 06:25 Magnesium 2.0 mg/dL (1.8-2.4) 12/12/19 06:25 Ferritin 120 ng/mL (8-252) 12/12/19 06:25 Total Bilirubin 0.4 mg/dL (0.2-1.0) 12/10/19 06:39 Conjugated Bilirubin 0.09 mg/dL (0.00-0.20) 12/10/19 06:39 GGT 33 U/L (5-55) 12/10/19 06:39 AST 10 U/L (15-37) L 12/10/19 06:39 ALT 15 U/L (14-59) 12/10/19 06:39 Alkaline Phosphatase 65 U/L (46-116) 12/10/19 06:39 Troponin I Cancelled 12/09/19 04:05 C-Reactive Protein 3.43 mg/dL (0.0-0.3) H 12/12/19 06:25 Total Protein 6.1 g/dL (6.4-8.2) L 12/10/19 06:39 Albumin 3.2 g/dL (3.4-5.0) L 12/10/19 06:39 Lipase 354 U/L (73-393) 12/12/19 06:25 Rheumatoid Factor <8.6 IU/mL (<12.0) 12/10/19 06:39
[2019-12-12 15:44] LABS: ANA Interpretation Positive (Negative); ANA Titer Pattern 1:160 Speckled
--- NOTE | 2019-12-12 15:58 | PDOC.CMPRO ---
- If Service Date Differs Date of service: 12/12/19 Time of Service: 15:58 Care Management Progress Note S/O: Angie was sitting up in a chair when CM came to see her. She has been ambulating in the hallways independently. Angie states she is still having pain. She stated that it comes on suddenly and she is still unable to identify what triggers it. Pain medicine has been effective. Angie is having an MRCP today that will hopefully provide more information. A: Angie is a pleasant 59 year old woman admitted to [facility] on 12/09/19 with pancreatitis. P: Angie will likely be discharged home with no new services. She will follow up with her PCP and discharge plan of care. CM will continue to support patient, family and discharge planning needs.
--- NOTE | 2019-12-12 16:15 | CHAPLAIN ---
Angie was sitting up on her bed and talking with two younger people, her children possibly. She said she is still having pain but is feeling a bit better. She was very pleasant and outgoing and said that staff has been very friendly and attentive to her.
[2019-12-12] MEDS: Pantoprazole 40 MG VIAL IVP (16:56)
[2019-12-12] MEDS: Milk of Magnesia 30 ML CUP PO (16:56)
[2019-12-12] MEDS: Lactated Ringers 1,000 ML 75 ML IV (23:22)
[2019-12-13 04:08] VITALS: BP 119/78; PULSE 64; RESP 16; TEMP 36.6; O2SAT 97
[2019-12-13 07:21] LABS: Abs Immature Grans 0.01 k/cumm (0.0-0.09); Absolute Basophil Count 0.02 k/cumm (0.0-0.2); Absolute Eosinophil Count 0.09 k/cumm (0.0-0.7); Absolute Lymphocyte Count 0.95 k/cumm (1.2-3.4); Absolute Monocyte Count 0.32 k/cumm (0.11-0.7); Absolute Neutrophil Count 3.25 k/cumm (1.2-6.7); Basophils % 0.4; Eosinophils % 1.9; HCT 35.5 % (36.0-46.0); HGB 11.4 g/dL (12.0-15.5); Immature Grans % 0.2 %; Lymphocytes % 20.5; Mean Corp. HGB Concentration 32.1 g/dL (32.0-36.0); Mean Corpuscular Hemoglobin 28.9 pg (27.0-33.0); Mean Corpuscular Volume 89.9 fL (80-95); Mean Platelet Volume 11.1 fL (8.0-11.0); Monocytes % 6.9; Neutrophils % 70.1; Platelet Count 215 x1000/uL (130-400); RBC 3.95 m/cumm (4.00-5.20); RBC Distribution Width 12.9 % (11.7-14.6); White Blood Cell Count 4.64 k/cumm (4.4-10.8)
[2019-12-13 07:26] LABS: Anion Gap 7.4 mmol/L (3-11); BUN 8 mg/dL (7-18); CO2 28.6 mmol/L (21.0-32.0); CREATININE 0.82 mg/dL (0.55-1.02); Calcium 8.4 mg/dL (8.5-10.1); Chloride 107 mmol/L (98-107); Glucose 101 mg/dL (74-106); Potassium 3.9 mmol/L (3.5-5.1); Sodium 143 mmol/L (136-145)
[2019-12-13 07:50] VITALS: BP 130/79; PULSE 57; RESP 18; TEMP 35.9; O2SAT 96
--- NOTE | 2019-12-13 07:51 | W.PM.PROGNOT ---
Date of Service Date of service: 12/13/19 Time of Service: 07:10 Assessment and Plan Assessment and plan (1) Acute pancreatitis: Status: Acute Assessment and plan: A\\ 59 year old female with first episode of pancreatitis. Etiology is unclear at this time. Triglycerides are normal, she doesn't drink to excess, there are no stones or sludge noted on US. MRCP was unremarkable. She is on no medications that may cause pancreatitis. Calcium has been normal. The only test we haven't done is an Endoscopic EUS to look for pancreatic duct anomalies. This would need to be done at either [facility] or [facility]. P\\ Recommend low fat diet Referral to [facility] for consideration of endoscopic EUS Repeat Calcium and Triglycerides as an outpatient once recovered Case discussed with Dr. Post. I will send referral to [facility] for outpatient consultation Qualifiers: Pancreatitis type: idiopathic Acute pancreatitis complication: no infection or necrosis Qualified Code(s): K85.00 - Idiopathic acute pancreatitis without necrosis or infection Subjective Subjective Interval history since last seen: Mrs. Burton is feeling better this morning. Her pain is slowly subsiding. She is tolerating a low fat diet. She has not had a BM since admission. Exam GI Inspection: normal to inspection Palpation: soft, no hepatosplenomegaly and tender (mild cathleen-umbilical. No guarding or rebound) Objective Objective Clinical Data: Abnormal lab results 12/12/19 12/13/19 12/13/19 Range/Units 06:25 06:54 06:54 RBC 3.95 L (4.00-5.20) m/cumm Hgb 11.4 L (12.0-15.5) g/dL Hct 35.5 L (36.0-46.0) % MPV 11.1 H (8.0-11.0) fL Absolute Lymphocytes 0.95 L (1.2-3.4) k/cumm Calcium 8.4 L (8.5-10.1) mg/dL C-Reactive Protein 3.43 H (0.0-0.3) mg/dL Vital Signs Temperature 97.9 F 12/13/19 04:08 Temperature Source Temporal Artery Scan 12/13/19 04:08 Pulse 64 12/13/19 04:08 Pulse Rhythm Regular 12/12/19 23:25 Pulse 64 12/09/19 04:01 Respiratory Rate 16 12/13/19 04:08 Respiratory Effort 12/12/19 23:25 Respiratory Depth Normal 12/12/19 23:25 Respiratory Pattern Normal 12/12/19 23:25 Blood Pressure 119/78 12/13/19 04:08 Blood Pressure Mean 97 12/09/19 04:00 Pulse Oximetry 97 12/13/19 04:08 Oxygen Delivery Method Room Air 12/13/19 04:08 Oxygen Flow Rate 0 12/13/19 04:08 Pain Level 4 12/12/19 16:05 Intake & Output 12/12/19 12/12/19 12/13/19 11:59 23:59 11:59 Intake Total 1491.666 / 2349.583 857.917 / 2349.583 Output Total 2100 / 3700 1600 / 3700 Balance -608.334 / -1350.417 -742.083 / -1350.417 Intake: IV 1491.666 / 1989.583 497.917 / 1989.583 Oral 0 / 360 360 / 360 Output: Urine 2100 / 3700 1600 / 3700 Other: Urine Color Straw Yellow Urine Appearance Clear Clear Urine Odor None None Comment DARK YELLOW URINE Voiding Methods Toilet Toilet Laboratory Results WBC 4.64 k/cumm (4.4-10.8) 12/13/19 06:54 RBC 3.95 m/cumm (4.00-5.20) L 12/13/19 06:54 Hgb 11.4 g/dL (12.0-15.5) L 12/13/19 06:54 Hct 35.5 % (36.0-46.0) L 12/13/19 06:54 MCV 89.9 fL (80-95) 12/13/19 06:54 MCH 28.9 pg (27.0-33.0) 12/13/19 06:54 MCHC 32.1 g/dL (32.0-36.0) 12/13/19 06:54 RDW 12.9 % (11.7-14.6) 12/13/19 06:54 Plt Count 215 x1000/uL (130-400) 12/13/19 06:54 MPV 11.1 fL (8.0-11.0) H 12/13/19 06:54 Immature Gran % 0.2 % 12/13/19 06:54 Neutrophils % 70.1 12/13/19 06:54 Lymphocytes % 20.5 12/13/19 06:54 Monocytes % 6.9 12/13/19 06:54 Eosinophils % 1.9 12/13/19 06:54 Basophils % 0.4 12/13/19 06:54 Absolute Neutrophils 3.25 k/cumm (1.2-6.7) 12/13/19 06:54 Absolute Lymphocytes 0.95 k/cumm (1.2-3.4) L 12/13/19 06:54 Absolute Monocytes 0.32 k/cumm (0.11-0.7) 12/13/19 06:54 Absolute Eosinophils 0.09 k/cumm (0.0-0.7) 12/13/19 06:54 Absolute Basophils 0.02 k/cumm (0.0-0.2) 12/13/19 06:54 Sodium 143 mmol/L (136-145) 12/13/19 06:54 Potassium 3.9 mmol/L (3.5-5.1) 12/13/19 06:54 Chloride 107 mmol/L (98-107) 12/13/19 06:54 Carbon Dioxide 28.6 mmol/L (21.0-32.0) 12/13/19 06:54 Anion Gap 7.4 mmol/L (3-11) 12/13/19 06:54 BUN 8 mg/dL (7-18) 12/13/19 06:54 Creatinine 0.82 mg/dL (0.55-1.02) 12/13/19 06:54 Estimated GFR/1.73 m2 >= 60.00 (mL/min/1.73m2) 12/13/19 06:54 Glucose 101 mg/dL (74-106) 12/13/19 06:54 Calcium 8.4 mg/dL (8.5-10.1) L 12/13/19 06:54 Magnesium 2.0 mg/dL (1.8-2.4) 12/12/19 06:25 Ferritin 120 ng/mL (8-252) 12/12/19 06:25 Total Bilirubin 0.4 mg/dL (0.2-1.0) 12/10/19 06:39 Conjugated Bilirubin 0.09 mg/dL (0.00-0.20) 12/10/19 06:39 GGT 33 U/L (5-55) 12/10/19 06:39 AST 10 U/L (15-37) L 12/10/19 06:39 ALT 15 U/L (14-59) 12/10/19 06:39 Alkaline Phosphatase 65 U/L (46-116) 12/10/19 06:39 Troponin I Cancelled 12/09/19 04:05 C-Reactive Protein 3.43 mg/dL (0.0-0.3) H 12/12/19 06:25 Total Protein 6.1 g/dL (6.4-8.2) L 12/10/19 06:39 Albumin 3.2 g/dL (3.4-5.0) L 12/10/19 06:39 Lipase 354 U/L (73-393) 12/12/19 06:25 Rheumatoid Factor <8.6 IU/mL (<12.0) 12/10/19 06:39
[2019-12-13] MEDS: Enoxaparin 40 MG/0.4 ML SYR SC (08:49)
[2019-12-13 11:05] VITALS: BP 114/72; PULSE 63; RESP 18; TEMP 36.4; O2SAT 96
--- NOTE | 2019-12-13 11:47 | W.NUTRFU ---
Date of service: 12/13/19 Time of Service: 11:47 Nutritional Follow up NOTE: Angie was advanced to fat restricted diet today with excellent intake. No longer considered at nutritional risk. Time Spent in Nutritional Counseling and Treatment: 5 min spent face to face
[2019-12-13 11:58] LABS: SS-B (La) Ab, IgG 3.9 Units (<20.0); Sm (Smith) Ab, IgG 1.3 Units (<20.0)
--- NOTE | 2019-12-13 13:08 | DSE_ITS ---
Date of service: 12/13/19 Time of Service: 13:00 DS: Diagnosis Discharge Diagnosis (1) Acute pancreatitis: Status: Acute Discharge Plan Disposition Patient Disposition: HOME Condition: Fair Discharge Details Chief Complaint: Chest Pain Clinical Impression: Acute pancreatitis Reason For Visit: PANCREATITIS Admit Date/Time: 12/09/19 03:59 Admit Provider: Emilio Nieto Attending Provider: Emilio Nieto Primary Care Provider: Tere Brar ED Provider: Rudy Buckner [facility] Course Hospital Course: This is a 59-year-old female, with past medical history of recurrent DVT anticoagulated, former smoker, no alcohol use, who presented to the emergency room with acute onset of pain in the mid torso. Work up in the ED was significant for pancreatitis. This is her first episode of pancreatitis. She has no known history of gallbladder disease and no gallstones or biliary dilatation was noted on the portions of the chest CT that included the liver (steatosis) and pancreas. She had a lipid profile done last fall with a triglyceride level of 165. She is never had any known peptic ulcer disease. Her only medication is Eliquis. She had colonoscopy in 2017 showing diverticuli but nothing more. There is no family history of pancreatitis, no family history of cystic fibrosis. She was admitted for symptom control, bowel rest, hydration, monitoring for any complications and search for etiology. MRCP Her course was unremarkable. there was no etiology found to explain her illness. Surgery was consulted and recommends further outpatient testing which they will schedule through their office. Home Meds and New Rx's Prescriptions: New pantoprazole [Protonix] 40 mg tablet,delayed release (DR/EC) 40 mg PO DAILY Qty: 30 RF: 0 Continued Eliquis 5 mg Tablet 5 mg PO BID RF: 0 Discharge Instructions Instructions: Pancreatitis (DC) Additional Instructions: you have been referred to GI for further outpatient, their office will call you to schedule appointment. drink at least 6-8 glasses of water to stay well hydrated. avoid alcohol as it may increase your risk of re-occurrence. Stand Alone Forms: Nursing Discharge Form Referrals: Tere Brar [Primary Care Provider] - 12/22/19 8:45 am Activity:: Activity as Tolerated Equipment/Supplies:: No Equipment Needed Diet:: low fat Discharge Orders Discharge Orders: Discharge Order (Routine); Ordered 12/13/19 Ordered By: Kaela Milan Discharge Data Discharge Date/Time-TO BE ENTERED AT DEPARTURE: 12/13/19 15:58 DS: Summary Status at Discharge Functional status at discharge: independent ambulation Overall status at discharge: patient is progressing back to baseline Mental Status: mental status grossly normal Speech and Movement: speech and movement normal Mood: congruent mood Affect: normal affect Exam Narrative Exam Narrative: Const: Sitting up in bed, appears comfortable. pink warm dry and well perfused, no acute distress Eyes: PERRLA, EOMI Neck: supple, Resp: respiration even and unlabored able to speak complete sentences Cardio: RRR no murmur GI: abd soft, tender to epigastrium BSx4 active. Skin: no rashes or lesions Extrem: No edema, moves all extremities x4. Psych Mental Status: mental status grossly normal Speech and Movement: speech and movement normal Mood: congruent mood Affect: normal affect DS: Data Vitals/I&O Vitals and I&O: Vital Signs Temperature 36.4 C L 12/13/19 11:05 Temperature Source Tympanic 12/13/19 11:05 Pulse 63 12/13/19 11:05 Pulse Rhythm Regular 12/13/19 08:50 Pulse 64 12/09/19 04:01 Respiratory Rate 18 12/13/19 11:05 Respiratory Effort 12/13/19 08:50 Respiratory Depth Normal 12/13/19 08:50 Respiratory Pattern Normal 12/13/19 08:50 Blood Pressure 114/72 12/13/19 11:05 Blood Pressure Mean 97 12/09/19 04:00 Pulse Oximetry 96 12/13/19 11:05 Oxygen Delivery Method Room Air 12/13/19 11:05 Oxygen Flow Rate 0 12/13/19 11:05 Pain Level 4 12/13/19 11:05 Intake & Output 12/12/19 12/13/19 12/13/19 23:59 11:59 23:59 Intake Total 857.917 / 2349.583 1080 / 1080 Output Total 1600 / 3700 Balance -742.083 / -0138.266 7309 / 1080 Intake: IV 497.917 / 1989.583 Oral 360 / 360 1080 / 1080 Output: Urine 1600 / 3700 Other: Urine Color Yellow Urine Appearance Clear Urine Odor None Voiding Methods Toilet Data Completed and Pending Labs on day of discharge: Labs from last 24 hours 02/12/13/19 12/10/19 06:54 06:54 06:39 WBC 4.64 RBC 3.95 L Hgb 11.4 L Hct 35.5 L MCV 89.9 MCH 28.9 MCHC 32.1 RDW 12.9 Plt Count 215 MPV 11.1 H Immature Gran % 0.2 Neutrophils % 70.1 Lymphocytes % 20.5 Monocytes % 6.9 Eosinophils % 1.9 Basophils % 0.4 Absolute Neutrophils 3.25 Absolute Lymphocytes 0.95 L Absolute Monocytes 0.32 Absolute Eosinophils 0.09 Absolute Basophils 0.02 Sodium 143 Potassium 3.9 Chloride 107 Carbon Dioxide 28.6 Anion Gap 7.4 BUN 8 Creatinine 0.82 Estimated GFR/1.73 m2 >= 60.00 Glucose 101 Calcium 8.4 L MELODIE Titer 1:160 speckled MELODIE Titer 2 Not Applicable MELODIE Titer 3 Not Applicable MELODIE Interpretation Positive A [facility] Medical History DVT (deep venous thrombosis) (Resolved) Surgical History Status post open reduction with internal fixation of fracture (Chronic) ankle, wrist Vaginal hysterectomy (Chronic) Social History Smoking/Tobacco Use Status: Former Tobacco Use Alcohol Intake: never Drug use: Never Substance use type: does not use Do you feel safe at home: Yes Do you feel safe in your relationship?: Yes
--- NOTE | 2019-12-13 16:59 | PDOC.CMDIS ---
LACE Index Scoring Tool - Questions: Length of Stay (in days): 4 - 6 Acuity (Admit via E.D.?): Yes E.D. Visits: 3 - Answers: Total Score: 10 Risk of Readmission: High Risk Care Management Discharge Reason for Hospitalization: Acute pancreatitis Discharge Plan: Angie will discharge home with no new services. She will follow up with her PCP and discharge plan of care. She will transport via private vehicle with family. Patient/Family Education Needs: Review discharge instructions, discuss Ask Me Three.
== END 2019-12-13 15:58 | disposition home or self-care (01) | DRG 440 ==
LOC: ER 04:10 → MS 04:39
PROVIDERS: Internal Medicine; Nurse Practitioner Family; Surgery; Admitting Provider Internal Medicine; Emergency Provider Emergency Medicine; PCP Nurse Practitioner Family; Visit Provider Internal Medicine
DX: K85.90 Acute pancreatitis without necrosis or infection, unspecified (principal); Z86.718 Personal history of other venous thrombosis and embolism; Z87.891 Personal history of nicotine dependence
CPT/HCPCS: 36415; 71275; 80048; 80053; 80076; 83690; 85027; 93005; 96361; 96374; 96376; 99222; 99232; 99233; 99239; 99254; 99285; J1650; NC; 74177; 74181; 76700; 82728; 82977; 83735; 84484; 85025; 86038; 86140; 86235; 86431; 93010; J2405; J3490

== ENCOUNTER 2019-12-26 07:23 | Outpatient (CLI) | payer MEDICAID, SELFPAY ==
[2019-12-26 08:42] LABS: Abs Immature Grans 0.01 k/cumm (0.0-0.09); Absolute Basophil Count 0.05 k/cumm (0.0-0.2); Absolute Eosinophil Count 0.09 k/cumm (0.0-0.7); Absolute Lymphocyte Count 1.61 k/cumm (1.2-3.4); Absolute Monocyte Count 0.32 k/cumm (0.11-0.7); Basophils % 0.9; Eosinophils % 1.6; HGB 12.8 g/dL (12.0-15.5); Immature Grans % 0.2 %; Lymphocytes % 28.3; Mean Corpuscular Hemoglobin 29.1 pg (27.0-33.0); Mean Corpuscular Volume 90.9 fL (80-95); Mean Platelet Volume 11.8 fL (8.0-11.0); Monocytes % 5.6; Neutrophils % 63.4; Platelet Count 283 x1000/uL (130-400); RBC Distribution Width 13.7 % (11.7-14.6); White Blood Cell Count 5.68 k/cumm (4.4-10.8)
[2019-12-26 09:21] LABS: Iron 98 ug/dL (50-170)
[2019-12-26 09:37] LABS: Calcium 9.3 mg/dL (8.5-10.1); Calculated LDL 141 mg/dL (<100); Cholesterol 217 mg/dL (<200); Ferritin 124 ng/mL (8-252); HDL Cholesterol 45 mg/dL (40-60); Triglyceride 158 mg/dL (<150)
== END 2019-12-26 07:43 ==
PROVIDERS: PCP Nurse Practitioner Family; Visit Provider Nurse Practitioner Family
DX: K85.90 Acute pancreatitis without necrosis or infection, unspecified (principal)
CPT/HCPCS: 36415; 80061; 82310; 82728; 83540; 85025

== ENCOUNTER 2020-01-23 12:27 | Inpatient (IN) | payer MEDICAID, SELFPAY ==
[2020-01-23 12:32] VITALS: BP 160/90; PULSE 71; RESP 22; TEMP 36.7; O2SAT 99
--- NOTE | 2020-01-23 12:48 | ED.GENADUL_ITS ---
Discharge Plan Disposition Patient Disposition: [facility] INPATIENT Condition: Stable Discharge Details Chief Complaint: Abd Prob Clinical Impression: Acute pancreatitis, Diverticulitis Primary Care Provider: Tere Brar ED Provider: Real Duarte Home Meds and New Rx's Prescriptions: No Action Eliquis 5 mg Tablet 5 mg PO BID RF: 0 Advair HFA 115-21 mcg/actuation Hfa Aerosol Inhaler 2 puff INHALATION BID RF: 0 Medical Decision Making 59-year-old female with a history of idiopathic pancreatitis this past November. She recovered and was doing well until she had recurrent pain last night.'s constant bandlike pain across her anterior upper abdomen. She states she was scheduled for outpatient ERCP at [facility] which was canceled due to current coronavirus conditions. She arrives on referral from primary care. She is afebrile but hypertensive and in pain. She is tender in the epigastrium but does not demonstrate peritonitis. IV placed, patient given fluids, antiemetic, analgesic and referred for laboratories. The patient's labs are notable for white blood cell count of 11.8, reassuring electrolytes and LFTs, lipase is greater than 15,000. On patient's previous admission there was no clear etiology for her pancreatitis. Today's presentation is consistent with acute and recurrent pancreatitis. Will obtain CT imaging to rule out pseudocyst or evidence of biliary obstruction. CT reveals diverticulitis as well as pancreatitis w peripancreatic fat edema and acute descending diverticulitis. We will discuss choice of antibiotic therapy and admission with the hospitalist team. ECG Data Attestation: I personally reviewed and interpreted this ECG (s) as follows: Interpretation: Normal sinus rhythm with a rate of 75, QRS is narrow, no ST segment elevation, QTc 418 HPI General Mode of arrival: ambulatory . Date/Time Provider Initiated Documentation: 01/23/20 12:36 . Limitations to Documentation: no limitations . Information obtained by: patient . History of Present Illness 59 year old F presents to the emergency department with the chief complaint of Epigastric pain, recurrent, described as moderate and similar to prior episodes, Quality is described as dull and constant, and is localized to the abdomen. Patient reports no radiation. Patient started experiencing this hour(s) and it has been constant. No relieving factors improve symptom(s), No exacerbating factors reported . Patient notes loss of appetite; denies chest pain and shortness of breath. Patient did receive the following treatments prior to arrival, none Related Data Home Medications Medication Instructions Recorded Confirmed Eliquis 5 mg PO BID 06/04/19 01/23/20 fluticasone propion-salmeterol 2 puff INHALATION BID 01/23/20 01/23/20 [Advair HFA] Allergies Allergy/AdvReac Type Severity Reaction Status Date / Time bupropion [From Wellbutrin] Allergy Hives Unverified 01/23/20 12:35 General Stated Complaint: Abd Prob MONROE: 3 Review of Systems Narrative: 6 systems reviewed and otherwise negative. Patient states plan for outpatient ERCP at [facility] that was canceled due to current coronavirus conditions. [facility] Medical History Bartholin gland cyst (Acute) 08/2019. referred to [facility]. No appt made. DVT (deep venous thrombosis) (Resolved) Surgical History Status post open reduction with internal fixation of fracture (Chronic) ankle, wrist Vaginal hysterectomy (Chronic) Social History Smoking/Tobacco Use Status: Former Tobacco Use Alcohol Intake: never Drug use: Never Substance use type: does not use Do you feel safe at home: Yes Do you feel safe in your relationship?: Yes Exam Narrative Exam Narrative: GEN: awake, alert, oriented 3. Pleasant, well groomed, interactive. HEAD: Normocephalic, atraumatic ENT: Mucous membranes moist, oropharynx unremarkable, External ear exam unremarkable EYES: PERRL, EOMI NECK: Full ROM, no VALDEZ, no menigismus CHEST/RESP: Nontender, clear to auscultation bilateral, no wheeze/rhonchi/rales CARDIOVASCULAR: RRR, no murmur, rub krystal. 2+ Rad pulse bilateral ABDOMEN: Soft, epigastric tenderness no rebound or guarding, no mass. +Bowel sounds EXT: Full ROM, no edema, no rash Neuro: Grossly normal neurologic exam, conversant, interactive. Psych: Speech fluent, thoughts congruent, affect normal Course Vital Signs Vital signs: Vital Signs Temperature 36.7 C 01/23/20 12:32 Pulse 71 01/23/20 12:32 Respiratory Rate 22 01/23/20 12:32 Blood Pressure 160/90 H 01/23/20 12:32 Pulse Oximetry 99 01/23/20 12:32 Temperature 36.7 C 01/23/20 12:32 Temperature Source Tympanic 01/23/20 12:32 Pulse 71 01/23/20 12:32 Respiratory Rate 22 01/23/20 12:32 Blood Pressure 160/90 H 01/23/20 12:32 Blood Pressure Position Sitting 01/23/20 12:32 Pulse Oximetry 99 01/23/20 12:32 Oxygen Delivery Method Room Air 01/23/20 12:32 Oxygen Flow Rate 0 01/23/20 12:32 Pain Level 10 01/23/20 12:32
[2020-01-23] MEDS: Normal Saline Flush 10 ML SYR IVP ×3 (13:38→17:07)
[2020-01-23] MEDS: Normal Saline 1,000 ML 1000 ML IV (13:43)
[2020-01-23] MEDS: Ondansetron 4 MG/2 ML VIAL IVP (13:45)
[2020-01-23] MEDS: MORPHine 10 MG/ML VIAL 4 MG IVP (13:48)
[2020-01-23 13:51] LABS: Abs Immature Grans 0.02 k/cumm (0.0-0.09); Absolute Eosinophil Count 0.06 k/cumm (0.0-0.7); Absolute Lymphocyte Count 1.68 k/cumm (1.2-3.4); Basophils % 0.3; Eosinophils % 0.5; HCT 40.3 % (36.0-46.0); HGB 13.2 g/dL (12.0-15.5); Immature Grans % 0.2 %; Lymphocytes % 14.2; Mean Corp. HGB Concentration 32.8 g/dL (32.0-36.0); Mean Corpuscular Hemoglobin 29.4 pg (27.0-33.0); Mean Corpuscular Volume 89.8 fL (80-95); Mean Platelet Volume 10.7 fL (8.0-11.0); Monocytes % 5.6; Neutrophils % 79.2; Platelet Count 259 x1000/uL (130-400); RBC 4.49 m/cumm (4.00-5.20); RBC Distribution Width 13.7 % (11.7-14.6); White Blood Cell Count 11.86 k/cumm (4.4-10.8)
[2020-01-23 13:52] LABS: Absolute Basophil Count 0.04 k/cumm (0.0-0.2); Absolute Monocyte Count 0.66 k/cumm (0.11-0.7); Absolute Neutrophil Count 9.39 k/cumm (1.2-6.7)
[2020-01-23 14:02] LABS: ALT 28 U/L (14-59); AST 17 U/L (15-37); Albumin 3.9 g/dL (3.4-5.0); Alkaline Phosphatase 83 U/L (46-116); Anion Gap 9.2 mmol/L (3-11); BUN 13 mg/dL (7-18); Bilirubin, Total 0.4 mg/dL (0.2-1.0); CO2 27.8 mmol/L (21.0-32.0); Calcium 9.1 mg/dL (8.5-10.1); Chloride 104 mmol/L (98-107); Glucose 93 mg/dL (74-106); Magnesium 2.1 mg/dL (1.8-2.4); Potassium 4.1 mmol/L (3.5-5.1); Sodium 141 mmol/L (136-145); Total Protein 7.5 g/dL (6.4-8.2)
[2020-01-23 14:09] LABS: Prothrombin Time 10.2 sec (9.3-11.0)
[2020-01-23 14:15] LABS: Lipase > 15000 U/L (73-393)
[2020-01-23 14:16] LABS: Troponin I < 0.05 ng/Ml (<0.06)
[2020-01-23] MEDS: Omnipaque 350 MG/ML 100 ML BTL IJ (14:46)
[2020-01-23] MEDS: Normal Saline - Diluent 50 ML VIAL IV (14:47)
--- NOTE | 2020-01-23 14:50 | DI.CT_ITS ---
EXAM: CT ABDOMEN PELVIS W CLINICAL HISTORY: epigastric pain, hx pancreatitis TECHNIQUE: COMPARISON: No exams were available for comparison FINDINGS: CT examination of the abdomen and pelvis was performed with bolus infusion of 100 cc of Omnipaque 350 . Examination is compared with recent study of December 09 which showed findings consistent with acute pancreatitis. On today's examination there is increased pancreatic edema and increased edema in peripancreatic fat. No fluid collection in the upper abdomen. No evidence of abscess. Unremarkable appearance of live r and spleen noted. Mild duodenal wall thickening presumably reactive noted. No biliary dilatation or gallbladder abnormality by CT criteria. The adrenals and kidneys appear normal. No urinary tract calcification or obstruction. No significa nt abdominal wall hernia. No abdominal or pelvic adenopathy. Appendix appears normal. There is marked wall thickening of the junction of the descending and sigmoid colon with marked peric olonic fat edema. No gross perforation seen and no abscess formation identified. Findings are consi stent with acute diverticulitis. There is mild free fluid in the pelvis. IMPRESSION: Apparent increasing severity of pancreatic and Nelida pancreatic inflammatory process since 12/09. No abscess or cyst formation. New finding of uncomplicated diverticulitis as described above at the descending/sigmoid junction. S mall quantity of free pelvic fluid is also noted which is new since theprevious examination
[2020-01-23 15:47] VITALS: BP 146/87; PULSE 79; RESP 18; TEMP 36.6; O2SAT 100
[2020-01-23] MEDS: CIPROFLOXACIN 400 MG/200 ML BAG 200 MG IVPB (15:52)
[2020-01-23 16:15] VITALS: BP 127/87; PULSE 77; RESP 18; TEMP 35.5; O2SAT 99
--- NOTE | 2020-01-23 16:40 | HPE_ITS ---
Date of service: 01/23/20 Time of Service: 16:40 Assessment and Plan Assessment and plan (1) Acute pancreatitis: Start date: 01/23/20 Start time: 16:52 Status: Acute Assessment and plan: Second bout of pancreatitis in 2 months, etiology unknown. EGD with [facility] cx d/t COVID. Pain onset last [place] [id number]. IVF at 250, NPO except ice chips. Monitor symptoms, analgesics and antiemetics PRN. Continue to monitor. (2) Diverticulitis: Start date: 01/23/20 Start time: 18:10 Status: Chronic Assessment and plan: Found by imaging. Cipro and flagyl, monitor symptoms and IVF with analgesics and antiemetics prn. (3) DVT (deep venous thrombosis): Start date: 01/23/20 Start time: 18:15 Status: Chronic Assessment and plan: DVT to LLE present prior to admission. Continue Eliquis 5 mg BID, Fahad stockings daily. (4) Bronchitis: Start date: 01/23/20 Start time: 18:15 Status: Acute Assessment and plan: Dx prior to admission. Finished course of steroid treatment as an outpatient, continue nebs as needed. Above case discussed with Dr. Post who is in agreement. History of Present Illness History of Present Illness Chief Complaint: Pancreatitis, Diverticulitis Narrative: 59 y.o. female pmh of DVT on anticoagulation with apixaban, and idopathic pancreatitis, presents to [facility] ED today after seeing PCP with abd pain to midepigastric region. Patient was scheduled for EGD at [facility] this Thursday ho that was cancelled due to COVID, she went to PCP today and was sent to ED for symptoms. Imaging and labs remarkable [place] [id number] with slight WBC no shift at 11.86, CT abd with increasing severity of pancreatic and Nelida pancreatic inflammation since 12/09, with new uncomplicated diverticulitis. Prior admission for pancreatitis fe of this year without findings r/t diagnosis. Patient does not drink. Pain started last night, no vomiting or diarrhea, she has felt nauseated, for this reason she is being admitted for further management. Review of Systems All systems reviewed & are unremarkable except as noted in HPI and below [facility] Medical History Bartholin gland cyst (Acute) 08/2019. referred to [facility]. No appt made. DVT (deep venous thrombosis) (Resolved) Surgical History Status post open reduction with internal fixation of fracture (Chronic) ankle, wrist Vaginal hysterectomy (Chronic) Social History Smoking/Tobacco Use Status: Former Tobacco Use Alcohol Intake: never Drug use: Never Substance use type: does not use Do you feel safe at home: Yes Do you feel safe in your relationship?: Yes Meds Home Medications and Allergies Home Medications Medication Instructions Recorded Confirmed Type Eliquis 5 mg PO BID 06/04/19 01/23/20 History fluticasone propion-salmeterol 2 puff INHALATION BID 01/23/20 01/23/20 History [Advair HFA] Allergies Allergy/AdvReac Type Severity Reaction Status Date / Time bupropion [From Wellbutrin] Allergy Hives Unverified 01/23/20 12:35 Exam Const General: cooperative, healthy appearing, comfortable and no acute distress Nutritional Appearance: overweight Orientation: alert, awake and oriented x3 HENMT Head: normal to inspection, normocephalic and atraumatic Ears: hearing grossly normal bilaterally Eyes General: appearance normal, both eyes and all related structures Conjunctivae: conjunctivae normal Sclera: sclerae normal Pupils: PERRL Neck Neck: normal visual inspection, full ROM and no JVD Thyroid: thyroid normal Lymphatic: no lymphadenopathy noted Chest Chest: normal inspection of the chest Resp Effort & Inspection: normal respiratory effort and able to speak in complete sentences Auscultation: clear to auscultation bilaterally Cardio Jugular venous pressure: no JVD Palpation: normal PMI Rate: regular rate Rhythm: regular rhythm Heart Sounds: S1 normal and S2 normal GI Inspection: normal to inspection Palpation: soft, no hepatosplenomegaly and tender (tender worse with palpation to mid epigastric area) in the epigastrum Auscultation: normal bowel sounds Back/Spine/Pelvis Back: no CVA tenderness Thoracic/Lumbar Spine: thoracic and lumbar spine normal to inspection Skin General skin exam: no rashes or lesions noted Neuro General: patient alert, patient awake and patient oriented x3 Extrem General: normal to inspection, full ROM and no clubbing, cyanosis or edema Psych Appearance: grossly normal Mental Status: mental status grossly normal Speech and Movement: speech and movement normal Affect: normal affect Results Labs Result diagrams: 01/23/20 13:40 01/23/20 13:40 Labs: Laboratory Results - last 24 hr 01/23/20 01/23/20 01/23/20 13:40 13:40 13:40 WBC 11.86 H RBC 4.49 Hgb 13.2 Hct 40.3 MCV 89.8 MCH 29.4 MCHC 32.8 RDW 13.7 Plt Count 259 MPV 10.7 Immature Gran % 0.2 Neutrophils % 79.2 Lymphocytes % 14.2 Monocytes % 5.6 Eosinophils % 0.5 Basophils % 0.3 Absolute Neutrophils 9.39 H Absolute Lymphocytes 1.68 Absolute Monocytes 0.66 Absolute Eosinophils 0.06 Absolute Basophils 0.04 PT 10.2 INR 1.0 Sodium 141 Potassium 4.1 Chloride 104 Carbon Dioxide 27.8 Anion Gap 9.2 BUN 13 Creatinine 0.90 Estimated GFR/1.73 m2 >= 60.00 Glucose 93 Calcium 9.1 Magnesium 2.1 Total Bilirubin 0.4 AST 17 ALT 28 Alkaline Phosphatase 83 Troponin I < 0.05 Total Protein 7.5 Albumin 3.9 Lipase > 81258 H Last Vital Signs Temp 36.6 C 01/23/20 15:47 Pulse 79 01/23/20 15:47 Resp 18 01/23/20 15:47 BP 146/87 H 01/23/20 15:47 Pulse Ox 100 01/23/20 15:47 COVID-19 Screening Traveled to [place] from one of the affected countries or regions?: NO Recent travel in the [place] within the last 8 weeks?: No Recent out of the country travel within the last 8 weeks?: No Exposure or possible exposure to illness during travel?: No Had IN PERSON contact w/suspected or confirmed C-19 person: No Have you had the following symptoms in the past few days?: No Symptoms noted since travel?: No Symptoms
[2020-01-23] MEDS: Normal Saline 1,000 ML 250 ML IV ×3 (17:07→22:28)
[2020-01-23] MEDS: metroNIDAZOLE 500 MG/100 ML BAG 100 MG IVPB ×2 (17:17→23:50)
[2020-01-23 18:56] VITALS: BP 131/84; PULSE 76; RESP 20; TEMP 37; O2SAT 100
[2020-01-23] MEDS: Apixaban 5 MG TAB PO (20:18)
[2020-01-23 22:52] VITALS: BP 134/76; PULSE 74; RESP 19; TEMP 37; O2SAT 96
[2020-01-24] MEDS: CIPROFLOXACIN 400 MG/200 ML BAG 200 MG IVPB ×2 (04:13→16:10)
[2020-01-24 04:31] VITALS: BP 143/83; PULSE 72; RESP 20; TEMP 36.5; O2SAT 95
[2020-01-24] MEDS: metroNIDAZOLE 500 MG/100 ML BAG 100 MG IVPB ×4 (06:16→23:09)
[2020-01-24 06:43] LABS: Abs Immature Grans 0.01 k/cumm (0.0-0.09); Absolute Basophil Count 0.01 k/cumm (0.0-0.2); Absolute Eosinophil Count 0.04 k/cumm (0.0-0.7); Absolute Neutrophil Count 6.55 k/cumm (1.2-6.7); Basophils % 0.1; Eosinophils % 0.5; HCT 32.9 % (36.0-46.0); HGB 10.7 g/dL (12.0-15.5); Immature Grans % 0.1 %; Lymphocytes % 13.4; Mean Corp. HGB Concentration 32.5 g/dL (32.0-36.0); Mean Corpuscular Hemoglobin 29.5 pg (27.0-33.0); Mean Corpuscular Volume 90.6 fL (80-95); Mean Platelet Volume 10.9 fL (8.0-11.0); Monocytes % 6.1; Neutrophils % 79.8; Platelet Count 208 x1000/uL (130-400); RBC 3.63 m/cumm (4.00-5.20); RBC Distribution Width 13.7 % (11.7-14.6); White Blood Cell Count 8.21 k/cumm (4.4-10.8)
[2020-01-24 06:58] LABS: ALT 18 U/L (14-59); AST 11 U/L (15-37); Albumin 2.9 g/dL (3.4-5.0); Alkaline Phosphatase 66 U/L (46-116); Anion Gap 7.2 mmol/L (3-11); BUN 10 mg/dL (7-18); Bilirubin, Total 0.6 mg/dL (0.2-1.0); CO2 25.8 mmol/L (21.0-32.0); CREATININE 0.84 mg/dL (0.55-1.02); Chloride 104 mmol/L (98-107); Glucose 114 mg/dL (74-106); Magnesium 1.9 mg/dL (1.8-2.4); Potassium 3.8 mmol/L (3.5-5.1); Sodium 137 mmol/L (136-145); Total Protein 6.1 g/dL (6.4-8.2)
[2020-01-24 07:11] LABS: Lipase 5605 U/L (73-393)
[2020-01-24 07:30] VITALS: BP 98/59; PULSE 64; RESP 18; TEMP 36.5; O2SAT 96
[2020-01-24] MEDS: Apixaban 5 MG TAB PO ×2 (08:41→20:15)
--- NOTE | 2020-01-24 09:39 | PHA.ADMREV ---
Pharmacy Clinical Review - Admission Clinical Review (Last Updated 01/23/20 @ 18:14 by Lashawn Dong NP) Bronchitis (Acute) Acute pancreatitis (Acute) bupropion [From Wellbutrin] Allergy (Unverified 01/23/20 12:35) Hives Height 6 ft 2 in Weight 107.2 kg - Renal Dosing Renal Dosing: BUN 10 mg/dL (7-18) 01/24/20 06:26 Creatinine 0.84 mg/dL (0.55-1.02) 01/24/20 06:26 Medications needing adjustments: Reviewed (crcl ~90ml/min) - Anticoagulation Anticoagulation: Hgb 10.7 g/dL (12.0-15.5) L D 01/24/20 06:26 Hct 32.9 % (36.0-46.0) L 01/24/20 06:26 Plt Count 208 x1000/uL (130-400) 01/24/20 06:26 INR 1.0 (0.9-1.1) 01/23/20 13:40 Creatinine 0.84 mg/dL (0.55-1.02) 01/24/20 06:26 DVT Prohphylaxis: Reviewed Medications: Apixaban Therapeutic Anticoagulation: Reviewed (for DVT) Medications: Apixaban - Opiate Usage Evaluate Pain Scale/Pains Meds: Reviewed (02/25) Scheduled Bowel Reg ordered if on Opiates?: No (PRN ) - Relevant Labs Sodium 137 mmol/L (136-145) 01/24/20 06:26 Potassium 3.8 mmol/L (3.5-5.1) 01/24/20 06:26 Chloride 104 mmol/L (98-107) 01/24/20 06:26 Magnesium 1.9 mg/dL (1.8-2.4) 01/24/20 06:26 Electrolytes, C-Reactive P, ESR: Reviewed - Antimicrobial Stewardship Antibiotic appropriateness: Reviewed (metronidazole and cipro IV) Surgical Abx d/c within 24 hr: N/A Culture review/Resistance: N/A - DM Control DM Control: Glucose 114 mg/dL (74-106) H 01/24/20 06:26 Insulin Dosing: N/A - Heart Failure/MN Heart Failure/MN: Troponin I < 0.05 ng/Ml (<0.06) 01/23/20 13:40 EF%, MARGY's, B-Blockers, Diuretics: N/A - BP Control BP Control: Blood Pressure 98/59 Blood Pressure 143/83 Blood Pressure 134/76 If elevated: Reviewed - QTc Review If Elevated: Reviewed (418) - IV to PO Switch IV Medications: Reviewed - Home Meds Home Med List reviewed: Reviewed (advair HFA not ordered. MDA and expect symbicort to be ordered) - Current meds Current Medication Order Review: Reviewed
--- NOTE | 2020-01-24 09:51 | INITIAL_ITS ---
- If Service Date Differs Date of service: 01/24/20 Time of Service: 09:51 Care Management Initial Assess REASON FOR HOSPITALIZATION:: Acute pancreatitis and diverticulitis PAST MEDICAL HISTORY/PAST SURGICAL HISTORY:: Medical History . Bartholin gland cyst (Acute). 08/2019. referred to [facility]. No appt made. DVT (deep venous thrombosis) (Resolved). Surgical History . Status post open reduction with internal fixation of fracture (Chronic). ankle, wrist. Vaginal hysterectomy (Chronic) PREVIOUS FUNCTIONAL STATUS/SOCIAL/FAMILY SUPPORTS:: Angie lives in a single family home in [facility] with her 2 children. She has a son and a daughter who are both 17 and are adopted from [place]. 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 She is independent at baseline and receives no community services. CURRENT FUNCTIONAL STATUS:: Angie was sitting up in bed when CM met with her. She was pleasant and engaged readily in conversation, however she appeared pale and uncomfortable. She stated that she is having a lot of abdominal pain but acknowledged that the pain medicine she is receiving works well. Angie shared that she has been sick on and off since her last hospital stay in November. She had a respiratory illness and was tested (negative) for Conid 19 then developed bronchitis. She has been out of work because of the pandemic and has been home schooling her children. Angie also shared that her friend is here with her 2 children and that they have all been quarantined together for about 3 weeks. ADVANCE DIRECTIVES:: none on file Has patient been provided with information about the portal?: Yes Did the patient sign up for the portal?: Yes CODE STATUS:: Full Code INSURANCE COVERAGE / FINANCIAL ISSUES:: Medicaid CURRENT HOME/COMMUNITY SERVICES/EQUIPMENT:: none PRIMARY CARE PHYSICIAN:: Tere Brar POTENTIAL DISCHARGE NEEDS:: follow up with PCP and discharge plan of care PATIENT/FAMILY EDUCATION NEEDS:: Discharge plan, limitations, dietary restrictions, follow up plan, Ask Me Three TRANSPORTATION:: via private vehicle with family PLAN:: Angie will likely be discharged home with no new services when medically ready. She will follow up with her PCP, surgeon and discharge plan of care. CM will continue to support patient, faamily and discharge planning needs.
--- NOTE | 2020-01-24 10:17 | W.PM.PROGNOT ---
Date of Service Date of service: 01/24/20 Time of Service: 10:17 Assessment and Plan Assessment and plan (1) Acute pancreatitis: Status: Acute Assessment and plan: Second bout of pancreatitis in 2 months, etiology unknown. [place] [facility] [place] [address], trending down this morning but symptoms persist. Continue IVF at 250, NPO except ice chips. Monitor symptoms, analgesics and antiemetics PRN. Continue to monitor. (2) Diverticulitis: Status: Chronic Assessment and plan: Found by imaging. I do not appreciate symptoms specific to this. Ciprofloxacin and metronidazole day #2 IV, will monitor for symptoms and not discontinue antibiotics for now. (3) DVT (deep venous thrombosis): Status: Chronic Assessment and plan: History of DVT to E present prior to admission. Continue Eliquis 5 mg BID, Fahad stockings daily. (4) Bronchitis: Status: Chronic Assessment and plan: I have reviewed primary care record and the patient has had symptoms of bronchitis for over 2 months. Is not consistent with an acute infection such as COVID. She was started on Advair last month, so I will continue an inhaled corticosteroid and long-acting bronchodilator in the form of Symbicort here. She is currently minimally symptomatic. She is a former smoker, and PFTs should be done to assess for COPD after the pandemic. (5) Anemia: Status: Chronic Assessment and plan: Patient's edema the 1 and hematocrit dropped since yesterday, but this is consistent with dilutional. She does have a previous anemia, with recent normal iron studies. She denies bleeding, will monitor for any active bleeding, especially with her anticoagulation. Subjective Subjective Patient reports: denies shortness of breath Interval history since last seen: Patient continues to complain of severe constant epigastric pain radiating to her mid back. She denies pain left lower quadrant. She vomited yellow-green vomitus today. She continues to feel nauseous. She denies fevers. No diarrhea. Takes Advair at home, held admission. Not coughing this morning. Exam Narrative Exam Narrative: General: Alert and oriented x3, lying in bed, no acute distress at rest. HEENT: Conjunctive clear, no icterus. Moist membranes. Lungs: Clear to auscultation bilaterally normal effort Cardiovascular: Regular rate and rhythm no murmurs gallops or rubs Abdomen: Hypoactive bowel sounds. Moderate to severe tenderness across the epigastrium, soft and nontender in lower quadrants. No masses palpable. Extremities: No cyanosis or clubbing. 1+ pitting edema left lower extremity to the cordoba, none on right. Neither calf is tender or hot. Objective Objective Clinical Data: Abnormal lab results 01/23/20 01/23/20 01/24/20 Range/Units 13:40 13:40 06:26 WBC 11.86 H (4.4-10.8) k/cumm RBC (4.00-5.20) m/cumm Hgb (12.0-15.5) g/dL Hct (36.0-46.0) % Absolute Neutrophils 9.39 H (1.2-6.7) k/cumm Absolute Lymphocytes (1.2-3.4) k/cumm Glucose 114 H (74-106) mg/dL Calcium 8.0 L (8.5-10.1) mg/dL AST 11 L (15-37) U/L Total Protein 6.1 L (6.4-8.2) g/dL Albumin 2.9 L (3.4-5.0) g/dL Lipase > 50119 H 5605 H (73-393) U/L 01/24/20 Range/Units 06:26 WBC (4.4-10.8) k/cumm RBC 3.63 L (4.00-5.20) m/cumm Hgb 10.7 L D (12.0-15.5) g/dL Hct 32.9 L (36.0-46.0) % Absolute Neutrophils (1.2-6.7) k/cumm Absolute Lymphocytes 1.10 L (1.2-3.4) k/cumm Glucose (74-106) mg/dL Calcium (8.5-10.1) mg/dL AST (15-37) U/L Total Protein (6.4-8.2) g/dL Albumin (3.4-5.0) g/dL Lipase (73-393) U/L Vital Signs Temperature 36.5 C 01/24/20 07:30 Temperature Source Temporal Artery Scan 01/24/20 07:30 Pulse 64 01/24/20 07:30 Pulse Rhythm Regular 01/24/20 08:59 Respiratory Rate 18 01/24/20 07:30 Respiratory Effort Non-Labored 01/24/20 08:59 Respiratory Depth Normal 01/24/20 08:59 Respiratory Pattern Normal 01/24/20 08:59 Blood Pressure 98/59 L 01/24/20 07:30 Blood Pressure Position Sitting 01/23/20 12:32 Pulse Oximetry 96 01/24/20 07:30 Oxygen Delivery Method Room Air 01/24/20 07:30 Oxygen Flow Rate 0 01/24/20 07:30 Pain Level 5 01/24/20 07:30 Intake & Output 01/23/20 01/23/20 01/24/20 11:59 23:59 11:59 Intake Total 1999 100 / 100 Output Total 850 / 850 Balance 1999 -750 / -750 Weight 106.141 kg 107.2 kg Intake: IV 1999 100 / 100 Output: Urine 800 / 800 Emesis 50 / 50 Other: Urine Color Dark Shannan Urine Appearance Clear Clear Comment concentrated Emesis Description Bile Voiding Methods Toilet Laboratory Results WBC 8.21 k/cumm (4.4-10.8) D 01/24/20 06:26 RBC 3.63 m/cumm (4.00-5.20) L 01/24/20 06:26 Hgb 10.7 g/dL (12.0-15.5) L D 01/24/20 06:26 Hct 32.9 % (36.0-46.0) L 01/24/20 06:26 MCV 90.6 fL (80-95) 01/24/20 06:26 MCH 29.5 pg (27.0-33.0) 01/24/20 06:26 MCHC 32.5 g/dL (32.0-36.0) 01/24/20 06:26 RDW 13.7 % (11.7-14.6) 01/24/20 06:26 Plt Count 208 x1000/uL (130-400) 01/24/20 06:26 MPV 10.9 fL (8.0-11.0) 01/24/20 06:26 Immature Gran % 0.1 % 01/24/20 06:26 Neutrophils % 79.8 01/24/20 06:26 Lymphocytes % 13.4 01/24/20 06:26 Monocytes % 6.1 01/24/20 06:26 Eosinophils % 0.5 01/24/20 06:26 Basophils % 0.1 01/24/20 06:26 Absolute Neutrophils 6.55 k/cumm (1.2-6.7) 01/24/20 06:26 Absolute Lymphocytes 1.10 k/cumm (1.2-3.4) L 01/24/20 06:26 Absolute Monocytes 0.50 k/cumm (0.11-0.7) 01/24/20 06:26 Absolute Eosinophils 0.04 k/cumm (0.0-0.7) 01/24/20 06:26 Absolute Basophils 0.01 k/cumm (0.0-0.2) 01/24/20 06:26 PT 10.2 sec (9.3-11.0) 01/23/20 13:40 INR 1.0 (0.9-1.1) 01/23/20 13:40 Sodium 137 mmol/L (136-145) 01/24/20 06:26 Potassium 3.8 mmol/L (3.5-5.1) 01/24/20 06:26 Chloride 104 mmol/L (98-107) 01/24/20 06:26 Carbon Dioxide 25.8 mmol/L (21.0-32.0) 01/24/20 06:26 Anion Gap 7.2 mmol/L (3-11) 01/24/20 06:26 BUN 10 mg/dL (7-18) 01/24/20 06:26 Creatinine 0.84 mg/dL (0.55-1.02) 01/24/20 06:26 Estimated GFR/1.73 m2 >= 60.00 (mL/min/1.73m2) 01/24/20 06:26 Glucose 114 mg/dL (74-106) H 01/24/20 06:26 Calcium 8.0 mg/dL (8.5-10.1) L 01/24/20 06:26 Magnesium 1.9 mg/dL (1.8-2.4) 01/24/20 06:26 Total Bilirubin 0.6 mg/dL (0.2-1.0) 01/24/20 06:26 AST 11 U/L (15-37) L 04/07/20 06:26 ALT 18 U/L (14-59) 01/24/20 06:26 Alkaline Phosphatase 66 U/L (46-116) 01/24/20 06:26 Troponin I < 0.05 ng/Ml (<0.06) 01/23/20 13:40 Total Protein 6.1 g/dL (6.4-8.2) L 01/24/20 06:26 Albumin 2.9 g/dL (3.4-5.0) L 01/24/20 06:26 Lipase 5605 U/L (73-393) H 01/24/20 06:26
[2020-01-24] MEDS: Normal Saline Flush 10 ML SYR IVP ×3 (10:28→21:13)
[2020-01-24 10:41] VITALS: BP 108/66; PULSE 63; RESP 18; TEMP 36.6; O2SAT 96
[2020-01-24] MEDS: Budesonide/Formoterol 160/4.5 6 GM 60 PUFF INH IH ×2 (11:32→20:46)
[2020-01-24] MEDS: Normal Saline 1,000 ML 250 ML IV ×2 (13:58→20:55)
[2020-01-24 15:48] VITALS: BP 105/59; PULSE 67; RESP 18; TEMP 36.7; O2SAT 977
--- NOTE | 2020-01-24 16:09 | CHAPLAIN ---
Angie remembered that we met when she was here about 5 months ago with pancreatitis. She said she hasn't had it before that, and that it's quite painful. Angie said her two kids are home, but that one of her friends is visiting with her children, so there is another adult in the house to help manage while Angie is hospitalized. I'll check in again.
[2020-01-24 19:20] VITALS: BP 111/68; PULSE 74; RESP 18; TEMP 37.1; O2SAT 96
[2020-01-24] MEDS: Mylanta Suspension 30 ML CUP PO (20:15)
[2020-01-24 23:18] VITALS: BP 130/74; PULSE 75; RESP 18; TEMP 37.2; O2SAT 94
[2020-01-25] MEDS: Normal Saline 1,000 ML 250 ML IV ×3 (02:08→14:18)
[2020-01-25 03:14] VITALS: BP 114/73; PULSE 77; RESP 17; TEMP 37.3; O2SAT 95
[2020-01-25] MEDS: CIPROFLOXACIN 400 MG/200 ML BAG 200 MG IVPB ×2 (03:50→16:32)
[2020-01-25] MEDS: metroNIDAZOLE 500 MG/100 ML BAG 100 MG IVPB ×4 (05:39→23:46)
[2020-01-25 07:14] VITALS: BP 123/69; PULSE 67; RESP 18; TEMP 36.6; O2SAT 94
[2020-01-25] MEDS: Budesonide/Formoterol 160/4.5 6 GM 60 PUFF INH IH ×2 (08:03→21:00)
[2020-01-25] MEDS: Acetaminophen 325 MG TAB PO ×2 (08:55→19:26)
[2020-01-25] MEDS: Apixaban 5 MG TAB PO ×2 (08:56→19:27)
[2020-01-25] MEDS: Normal Saline Flush 10 ML SYR IVP (08:57)
--- NOTE | 2020-01-25 10:34 | PGE_ITS ---
Date of Service Date of service: 01/25/20 Time of Service: 10:34 Assessment and Plan Assessment and plan (1) Acute pancreatitis: Status: Acute Assessment and plan: Second bout of pancreatitis in 2 months, etiology unknown. Mild severity. Improving today clinically. [place] [facility] [place] [address]6530, trending down yesterday, did not repeat today. Decrease IVF, progress diet. Monitor symptoms, analgesics and antiemetics PRN. Continue to monitor. (2) Diverticulitis: Status: Chronic Assessment and plan: Found by imaging. She is now having symptoms. Ciprofloxacin and metronidazole day #3 IV, written for low residue diet when she is ready. Will continue to monitor for symptoms and not discontinue antibiotics for now. (3) DVT (deep venous thrombosis): Status: Chronic Assessment and plan: History of DVT to LLE present prior to admission. Continue Eliquis 5 mg BID, Fahad stockings daily. (4) Bronchitis: Status: Chronic Assessment and plan: Subacute to chronic issue. Voiced now on Symbicort as substitute for her Advair. She is a former smoker, and PFTs should be done to assess for COPD after the pandemic. (5) Anemia: Status: Chronic Assessment and plan: Patient's hemoglobin and hematocrit dropped after admission, but this is consistent with dilutional. She does have a previous anemia, with recent normal iron studies and appears to be at her baseline. She denies bleeding, will monitor for any active bleeding, especially with her anticoagulation. No change today. Subjective Subjective Patient reports: flatus; denies bowel movement and fever Interval history since last seen: 24 hr: Episode of epigastric burning pain, improved with Mylanta Patient states that she is feeling hungry today. She confirms that burning pain did improve with Mylanta but with separate pain from her pancreatitis pain that radiates to her back. She does confirm overall her epigastric pain has improved. She is feeling more discomfort in her lower abdomen, left more than right. Exam Narrative Exam Narrative: General: Alert and oriented, and pleasant. A lot more and standing up in the room, no acute distress at rest. HEENT: Conjunctive clear, no icterus. Moist membranes. Lungs: Clear to auscultation bilaterally normal effort Cardiovascular: Regular rate and rhythm no murmurs gallops or rubs Abdomen: Active bowel sounds. Mild to moderate tenderness across the epigastrium, soft and mildly tender in lower quadrants left more than right. No masses palpable. Extremities: No cyanosis or clubbing. 1+ pitting edema left lower extremity to the cordoba, none on right. Neither calf is tender or hot. Objective Objective Clinical Data: Vital Signs Temperature 36.6 C 01/25/20 07:14 Temperature Source Temporal Artery Scan 01/25/20 07:14 Pulse 67 01/25/20 07:14 Pulse Rhythm Regular 01/25/20 03:15 Respiratory Rate 18 01/25/20 07:14 Respiratory Effort Non-Labored 01/25/20 03:15 Respiratory Depth Normal 01/25/20 03:15 Respiratory Pattern Normal 01/25/20 03:15 Blood Pressure 123/69 01/25/20 07:14 Blood Pressure Position Sitting 01/23/20 12:32 Pulse Oximetry 94 L 01/25/20 07:14 Oxygen Delivery Method Room Air 01/25/20 07:14 Oxygen Flow Rate 0 01/25/20 07:14 Pain Level 7 01/25/20 08:56 Intake & Output 01/24/20 01/24/20 01/25/20 11:59 23:59 11:59 Intake Total 1480.5 / 3001.5 1521.0 / 3001.5 2500 / 2500 Output Total 1650 / 2450 800 / 2450 1000 / 1000 Balance -169.5 / 551.5 721.0 / 551.5 1500 / 1500 Weight 107.2 kg 109.1 kg Intake: IV 1450.5 / 2951.5 1501.0 / 2951.5 2300 / 2300 Oral 30 / 50 20 / 50 200 / 200 Output: Urine 1600 / 2400 800 / 2400 1000 / 1000 Emesis 50 / 50 Other: Urine Color Yellow Yellow Yellow Urine Appearance Clear Clear Clear Urine Odor Strong None None Comment concentrated Emesis Description Bile Voiding Methods Toilet Toilet Toilet Laboratory Results WBC 8.21 k/cumm (4.4-10.8) D 01/24/20 06:26 RBC 3.63 m/cumm (4.00-5.20) L 01/24/20 06:26 Hgb 10.7 g/dL (12.0-15.5) L D 01/24/20 06:26 Hct 32.9 % (36.0-46.0) L 01/24/20 06:26 MCV 90.6 fL (80-95) 01/24/20 06:26 MCH 29.5 pg (27.0-33.0) 01/24/20 06:26 MCHC 32.5 g/dL (32.0-36.0) 01/24/20 06:26 RDW 13.7 % (11.7-14.6) 01/24/20 06:26 Plt Count 208 x1000/uL (130-400) 01/24/20 06:26 MPV 10.9 fL (8.0-11.0) 01/24/20 06:26 Immature Gran % 0.1 % 01/24/20 06:26 Neutrophils % 79.8 01/24/20 06:26 Lymphocytes % 13.4 01/24/20 06:26 Monocytes % 6.1 01/24/20 06:26 Eosinophils % 0.5 01/24/20 06:26 Basophils % 0.1 01/24/20 06:26 Absolute Neutrophils 6.55 k/cumm (1.2-6.7) 01/24/20 06:26 Absolute Lymphocytes 1.10 k/cumm (1.2-3.4) L 01/24/20 06:26 Absolute Monocytes 0.50 k/cumm (0.11-0.7) 01/24/20 06:26 Absolute Eosinophils 0.04 k/cumm (0.0-0.7) 01/24/20 06:26 Absolute Basophils 0.01 k/cumm (0.0-0.2) 01/24/20 06:26 PT 10.2 sec (9.3-11.0) 01/23/20 13:40 INR 1.0 (0.9-1.1) 01/23/20 13:40 Sodium 137 mmol/L (136-145) 01/24/20 06:26 Potassium 3.8 mmol/L (3.5-5.1) 01/24/20 06:26 Chloride 104 mmol/L (98-107) 01/24/20 06:26 Carbon Dioxide 25.8 mmol/L (21.0-32.0) 01/24/20 06:26 Anion Gap 7.2 mmol/L (3-11) 01/24/20 06:26 BUN 10 mg/dL (7-18) 01/24/20 06:26 Creatinine 0.84 mg/dL (0.55-1.02) 01/24/20 06:26 Estimated GFR/1.73 m2 >= 60.00 (mL/min/1.73m2) 01/24/20 06:26 Glucose 114 mg/dL (74-106) H 01/24/20 06:26 Calcium 8.0 mg/dL (8.5-10.1) L 01/24/20 06:26 Magnesium 1.9 mg/dL (1.8-2.4) 01/24/20 06:26 Total Bilirubin 0.6 mg/dL (0.2-1.0) 01/24/20 06:26 AST 11 U/L (15-37) L 01/24/20 06:26 ALT 18 U/L (14-59) 01/24/20 06:26 Alkaline Phosphatase 66 U/L (46-116) 01/24/20 06:26 Troponin I < 0.05 ng/Ml (<0.06) 01/23/20 13:40 Total Protein 6.1 g/dL (6.4-8.2) L 01/24/20 06:26 Albumin 2.9 g/dL (3.4-5.0) L 01/24/20 06:26 Lipase 5605 U/L (73-393) H 01/24/20 06:26
[2020-01-25 11:18] VITALS: BP 118/71; PULSE 67; RESP 18; TEMP 36.5; O2SAT 96
--- NOTE | 2020-01-25 13:34 | W.NUTCONSULT ---
Date of service: 01/25/20 Time of Service: 13:34 Nutritional Consult ASSESSMENT: 59 year old female admitted with acute pancreatitis and diverticulitis. Has been NPO x 3 days. Will continue to monitor and provide education as needed. MONITORING AND EVALUATION: weight, labs, po intake Time Spent in Nutritional Counseling and Treatment: 0 time spent face to face
--- NOTE | 2020-01-25 15:40 | PDOC.CMPRO ---
Care Management Progress Note S/O: Per MD, EGD at [facility] [place] was [place]. Her diet was advanced today and she continues to be closely monitored. CM continues to follow. A: 59 year old female admitted to [facility] 01/23/20 with pancreatitis, diverticulitis P: Angie will discharge home with no new services when medically ready. She will follow up with her PCP, surgeon and discharge plan of care. CM will continue to support patient with discharge planning considerations.
[2020-01-25 15:43] VITALS: BP 120/68; PULSE 66; RESP 18; TEMP 36.6; O2SAT 97
--- NOTE | 2020-01-26 | DI.US_ITS ---
EXAM: US LOWER EXTREMITY VENOUS LT CLINICAL HISTORY: new pain, redness, swelling left lower leg/ankle. TECHNIQUE: Ultrasound performed using standard protocol. COMPARISON: US ABDOMEN from 12/09/2019 FINDINGS: Duplex venous ultrasound was performed according to the usual protocol. The deep veins are freely com pressible throughout and there is normal flow augmentation with manual calf compression. 2D and Doppl er evaluation are unremarkable. IMPRESSION: No evidence of deep venous thrombosis of the left lower extremity DATA REPOSITORY:
[2020-01-26 00:35] VITALS: BP 124/65; PULSE 66; RESP 18; TEMP 36.4; O2SAT 98
[2020-01-26] MEDS: CIPROFLOXACIN 400 MG/200 ML BAG 200 MG IVPB (04:18)
[2020-01-26 04:26] VITALS: BP 159/95; PULSE 75; RESP 18; TEMP 36.3; O2SAT 98
[2020-01-26] MEDS: metroNIDAZOLE 500 MG/100 ML BAG 100 MG IVPB (06:55)
[2020-01-26 07:17] LABS: Abs Immature Grans 0.01 k/cumm (0.0-0.09); Absolute Basophil Count 0.01 k/cumm (0.0-0.2); Absolute Eosinophil Count 0.09 k/cumm (0.0-0.7); Absolute Lymphocyte Count 1.03 k/cumm (1.2-3.4); Absolute Monocyte Count 0.41 k/cumm (0.11-0.7); Absolute Neutrophil Count 4.55 k/cumm (1.2-6.7); Basophils % 0.2; Eosinophils % 1.5; HCT 32.8 % (36.0-46.0); HGB 10.7 g/dL (12.0-15.5); Immature Grans % 0.2 %; Lymphocytes % 16.9; Mean Corp. HGB Concentration 32.6 g/dL (32.0-36.0); Mean Corpuscular Hemoglobin 29.5 pg (27.0-33.0); Mean Corpuscular Volume 90.4 fL (80-95); Mean Platelet Volume 11.6 fL (8.0-11.0); Monocytes % 6.7; Neutrophils % 74.5; Platelet Count 161 x1000/uL (130-400); RBC 3.63 m/cumm (4.00-5.20); RBC Distribution Width 13.4 % (11.7-14.6)
[2020-01-26 07:20] LABS: ALT 15 U/L (14-59); AST 12 U/L (15-37); Albumin 2.8 g/dL (3.4-5.0); Alkaline Phosphatase 63 U/L (46-116); Anion Gap 7.7 mmol/L (3-11); BUN 6 mg/dL (7-18); Bilirubin, Total 0.3 mg/dL (0.2-1.0); CO2 27.3 mmol/L (21.0-32.0); CREATININE 0.81 mg/dL (0.55-1.02); Calcium 8.4 mg/dL (8.5-10.1); Chloride 108 mmol/L (98-107); Glucose 115 mg/dL (74-106); Potassium 3.8 mmol/L (3.5-5.1); Sodium 143 mmol/L (136-145); Total Protein 6.3 g/dL (6.4-8.2)
[2020-01-26] MEDS: Acetaminophen 325 MG TAB PO (08:34)
[2020-01-26 08:35] VITALS: BP 130/78; PULSE 65; RESP 16; TEMP 37.2; O2SAT 98
[2020-01-26] MEDS: Normal Saline Flush 10 ML SYR IVP (08:37)
[2020-01-26] MEDS: Apixaban 5 MG TAB PO (08:37)
[2020-01-26] MEDS: Budesonide/Formoterol 160/4.5 6 GM 60 PUFF INH IH (09:04)
--- NOTE | 2020-01-26 11:18 | W.PM.PROGNOT ---
Date of Service Date of service: 01/26/20 Time of Service: 11:18 Assessment and Plan Assessment and plan (1) Acute pancreatitis: Status: Acute Assessment and plan: Second bout of pancreatitis in 2 months, etiology unknown. Mild severity. Improving again today clinically. [place] [facility] [place] [id number], trending down on second day of admission. Repeat LFTs and CBC is reassuring. Progress diet today. Monitor symptoms, analgesics and antiemetics PRN. Continue to monitor. (2) Diverticulitis: Status: Chronic Assessment and plan: Found by imaging. She is now having symptoms. Ciprofloxacin and metronidazole day #4 IV, will change to oral antibiotics. Will substitute levofloxacin for Cipro if the Doppler study is negative to also cover possible skin infection. (3) DVT (deep venous thrombosis): Status: Chronic Assessment and plan: History of DVT to LLE present prior to admission. I am concerned that the new redness and swelling could represent a recurrence of DVT, or least a superficial clot. We will get lower extremity Dopplers. For now, continue Eliquis 5 mg BID. We may have to consider changing anticoagulant if this is a DVT. If no DVT is seen, consider cellulitis treatment. (4) Bronchitis: Status: Chronic Assessment and plan: Subacute to chronic issue. Voiced now on Symbicort as substitute for her Advair. She is a former smoker, and PFTs should be done to assess for COPD after the pandemic. (5) Anemia: Status: Chronic Assessment and plan: Patient's hemoglobin and hematocrit dropped after admission, but this is consistent with dilutional. She does have a previous anemia, with recent normal iron studies and appears to be at her baseline. No significant change on CBC today. She denies bleeding, will monitor for any active bleeding, especially with her anticoagulation. Subjective Subjective Patient reports: denies vomiting, shortness of breath and fever Interval history since last seen: 24 hr: Tolerated clear diet well Epigastric pain significantly improved today. Nausea has improved. Still some lower abdominal pain. She is hungry and like to try and regular diet. She has noted a new tender red and swollen left ankle. She denies any trauma. She denies having an open wound or cut in the area. Exam Narrative Exam Narrative: General: Alert and oriented, and pleasant. A lot more and standing up in the room, no acute distress at rest. HEENT: Conjunctive clear, no icterus. Moist membranes. Lungs: Clear to auscultation bilaterally normal effort Cardiovascular: Regular rate and rhythm no murmurs gallops or rubs Abdomen: Active bowel sounds. Mild tenderness across the epigastrium, soft and mildly tender in lower quadrants, no guarding or rebound. No masses palpable. Extremities: No cyanosis or clubbing. 1+ pitting edema left lower extremity to the cordoba, none on right. New warm red and tender area left medial cordoba down to ankle. Objective Objective Clinical Data: Abnormal lab results 01/26/20 01/26/20 Range/Units 06:05 06:05 RBC 3.63 L (4.00-5.20) m/cumm Hgb 10.7 L (12.0-15.5) g/dL Hct 32.8 L (36.0-46.0) % MPV 11.6 H (8.0-11.0) fL Absolute Lymphocytes 1.03 L (1.2-3.4) k/cumm Chloride 108 H (98-107) mmol/L BUN 6 L (7-18) mg/dL Glucose 115 H (74-106) mg/dL Calcium 8.4 L (8.5-10.1) mg/dL AST 12 L (15-37) U/L Total Protein 6.3 L (6.4-8.2) g/dL Albumin 2.8 L (3.4-5.0) g/dL Vital Signs Temperature 37.2 C 01/26/20 08:35 Temperature Source Tympanic 01/26/20 08:35 Pulse 65 01/26/20 08:35 Pulse Rhythm Regular 01/26/20 08:57 Respiratory Rate 16 01/26/20 08:35 Respiratory Effort Non-Labored 01/26/20 08:57 Respiratory Depth Normal 01/26/20 08:57 Respiratory Pattern Normal 01/26/20 08:57 Blood Pressure 130/78 01/26/20 08:35 Blood Pressure Position Sitting 01/23/20 12:32 Pulse Oximetry 98 01/26/20 08:35 Oxygen Delivery Method Room Air 01/26/20 08:35 Oxygen Flow Rate 0 01/26/20 08:35 Pain Level 7 01/26/20 08:36 Comment 01/26/20 04:26 Intake & Output 01/25/20 01/25/20 01/26/20 11:59 23:59 11:59 Intake Total 2600 / 5273.417 2673.417 / 5273.417 1160.500 / 1160.500 Output Total 1000 / 5650 4650 / 5650 3700 / 3700 Balance 1600 / -376.583 -1976.583 / -376.583 -2539.500 / -2539.500 Weight 109.1 kg 108.6 kg Intake: IV 2400 / 4393.417 1993.417 / 4393.417 710.500 / 710.500 Oral 200 / 880 680 / 880 450 / 450 Output: Urine 1000 / 5650 4650 / 5650 3700 / 3700 Other: Urine Color Yellow Pale Pale Yellow Yellow Urine Appearance Clear Clear Clear Urine Odor None Comment per Pt report Voiding Methods Toilet Toilet Toilet Laboratory Results WBC 6.10 k/cumm (4.4-10.8) 01/26/20 06:05 RBC 3.63 m/cumm (4.00-5.20) L 01/26/20 06:05 Hgb 10.7 g/dL (12.0-15.5) L 01/26/20 06:05 Hct 32.8 % (36.0-46.0) L 01/26/20 06:05 MCV 90.4 fL (80-95) 01/26/20 06:05 MCH 29.5 pg (27.0-33.0) 01/26/20 06:05 MCHC 32.6 g/dL (32.0-36.0) 01/26/20 06:05 RDW 13.4 % (11.7-14.6) 01/26/20 06:05 Plt Count 161 x1000/uL (130-400) 01/26/20 06:05 MPV 11.6 fL (8.0-11.0) H 01/26/20 06:05 Immature Gran % 0.2 % 01/26/20 06:05 Neutrophils % 74.5 01/26/20 06:05 Lymphocytes % 16.9 01/26/20 06:05 Monocytes % 6.7 01/26/20 06:05 Eosinophils % 1.5 01/26/20 06:05 Basophils % 0.2 01/26/20 06:05 Absolute Neutrophils 4.55 k/cumm (1.2-6.7) 01/26/20 06:05 Absolute Lymphocytes 1.03 k/cumm (1.2-3.4) L 01/26/20 06:05 Absolute Monocytes 0.41 k/cumm (0.11-0.7) 01/26/20 06:05 Absolute Eosinophils 0.09 k/cumm (0.0-0.7) 01/26/20 06:05 Absolute Basophils 0.01 k/cumm (0.0-0.2) 01/26/20 06:05 PT 10.2 sec (9.3-11.0) 01/23/20 13:40 INR 1.0 (0.9-1.1) 01/23/20 13:40 Sodium 143 mmol/L (136-145) 01/26/20 06:05 Potassium 3.8 mmol/L (3.5-5.1) 01/26/20 06:05 Chloride 108 mmol/L (98-107) H 01/26/20 06:05 Carbon Dioxide 27.3 mmol/L (21.0-32.0) 01/26/20 06:05 Anion Gap 7.7 mmol/L (3-11) 01/26/20 06:05 BUN 6 mg/dL (7-18) L 01/26/20 06:05 Creatinine 0.81 mg/dL (0.55-1.02) 01/26/20 06:05 Estimated GFR/1.73 m2 >= 60.00 (mL/min/1.73m2) 01/26/20 06:05 Glucose 115 mg/dL (74-106) H 01/26/20 06:05 Calcium 8.4 mg/dL (8.5-10.1) L 01/26/20 06:05 Magnesium 1.9 mg/dL (1.8-2.4) 01/24/20 06:26 Total Bilirubin 0.3 mg/dL (0.2-1.0) 01/26/20 06:05 AST 12 U/L (15-37) L 01/26/20 06:05 ALT 15 U/L (14-59) 01/26/20 06:05 Alkaline Phosphatase 63 U/L (46-116) 01/26/20 06:05 Troponin I < 0.05 ng/Ml (<0.06) 01/23/20 13:40 Total Protein 6.3 g/dL (6.4-8.2) L 01/26/20 06:05 Albumin 2.8 g/dL (3.4-5.0) L 01/26/20 06:05 Lipase 5605 U/L (73-393) H 01/24/20 06:26
--- NOTE | 2020-01-26 11:50 | PHA.REVIEW ---
Pharmacy Admission Review - Admission Clinical Review (Last Updated 01/24/20 @ 10:35 by Malik Talamantes) Acute pancreatitis (Acute) bupropion [From Wellbutrin] Allergy (Unverified 01/23/20 12:35) Hives Height 6 ft 2 in Weight 108.6 kg - Renal Dosing Renal Dosing: BUN 6 mg/dL (7-18) L 01/26/20 06:05 Creatinine 0.81 mg/dL (0.55-1.02) 01/26/20 06:05 - Anticoagulation Anticoagulation: Hgb 10.7 g/dL (12.0-15.5) L 01/26/20 06:05 Hct 32.8 % (36.0-46.0) L 01/26/20 06:05 Plt Count 161 x1000/uL (130-400) 01/26/20 06:05 INR 1.0 (0.9-1.1) 01/23/20 13:40 Creatinine 0.81 mg/dL (0.55-1.02) 01/26/20 06:05 - Relevant Labs Sodium 143 mmol/L (136-145) 01/26/20 06:05 Potassium 3.8 mmol/L (3.5-5.1) 01/26/20 06:05 Chloride 108 mmol/L (98-107) H 01/26/20 06:05 Magnesium 1.9 mg/dL (1.8-2.4) 01/24/20 06:26 - DM Control DM Control: Glucose 115 mg/dL (74-106) H 01/26/20 06:05 - Heart Failure/CT Heart Failure/CT: Troponin I < 0.05 ng/Ml (<0.06) 01/23/20 13:40 - BP Control BP Control: Blood Pressure 130/78 Blood Pressure 159/95 Blood Pressure 124/65
[2020-01-26] MEDS: metroNIDAZOLE 500 MG TAB PO (12:18)
--- NOTE | 2020-01-26 14:41 | W.NUTRFU ---
Date of service: 01/26/20 Time of Service: 14:41 Nutritional Follow up NOTE: Met with Angie today and provided education on Low Fat and Fiber Restricted diet to help decrease symptoms related to pancreatitis and diverticulitis. Reviewed ways to slowly increase both fats, and fiber into diet in coming weeks. Education material provided (Medical Nutrition Therapy- Fat Restricted, Fiber Restricted by Nutrition Care Manual). Provided contact information if follow up needed. Time Spent in Nutritional Counseling and Treatment: 30 min spent face to face
[2020-01-26] MEDS: levoFLOXacin 500 MG, levoFLOXacin 250 MG 750 MG PO (14:55)
--- NOTE | 2020-01-26 15:04 | HPE_ITS ---
Date of service: 01/26/20 Time of Service: 15:04 [facility] Medical History (Updated 01/24/20 @ 10:35 by Malik Talamantes) Anemia (Chronic) Bartholin gland cyst (Acute) 08/2019. referred to [facility]. No appt made. DVT (deep venous thrombosis) (Chronic) Surgical History Status post open reduction with internal fixation of fracture (Chronic) ankle, wrist Vaginal hysterectomy (Chronic) Social History Smoking/Tobacco Use Status: Former Tobacco Use Alcohol Intake: never Drug use: Never Substance use type: does not use Do you feel safe at home: Yes Do you feel safe in your relationship?: Yes Meds Home Medications and Allergies Home Medications Medication Instructions Recorded Confirmed Type Eliquis 5 mg PO BID 06/04/19 01/23/20 History Advair HFA 2 puff INHALATION BID 01/23/20 01/23/20 History albuterol sulfate [Ventolin HFA] 2 puff INHALATION Q6H PRN PRN #0 g 01/26/20 Rx levofloxacin [Levaquin] 750 mg PO QAM #6 tab 01/26/20 Rx metronidazole 500 mg PO Q6H #16 tab 01/26/20 Rx Allergies Allergy/AdvReac Type Severity Reaction Status Date / Time bupropion [From Wellbutrin] Allergy Hives Unverified 01/23/20 12:35 Results Labs Result diagrams: 01/26/20 06:05 01/26/20 06:05 Labs: Laboratory Results - last 24 hr 01/26/20 01/26/20 06:05 06:05 WBC 6.10 RBC 3.63 L Hgb 10.7 L Hct 32.8 L MCV 90.4 MCH 29.5 MCHC 32.6 RDW 13.4 Plt Count 161 MPV 11.6 H Immature Gran % 0.2 Neutrophils % 74.5 Lymphocytes % 16.9 Monocytes % 6.7 Eosinophils % 1.5 Basophils % 0.2 Absolute Neutrophils 4.55 Absolute Lymphocytes 1.03 L Absolute Monocytes 0.41 Absolute Eosinophils 0.09 Absolute Basophils 0.01 Sodium 143 Potassium 3.8 Chloride 108 H Carbon Dioxide 27.3 Anion Gap 7.7 BUN 6 L Creatinine 0.81 Estimated GFR/1.73 m2 >= 60.00 Glucose 115 H Calcium 8.4 L Total Bilirubin 0.3 AST 12 L ALT 15 Alkaline Phosphatase 63 Total Protein 6.3 L Albumin 2.8 L Last Vital Signs Temp 37.2 C 01/26/20 08:35 Pulse 65 01/26/20 08:35 Resp 16 01/26/20 08:35 BP 130/78 01/26/20 08:35 Pulse Ox 98 01/26/20 08:35 COVID-19 Screening Traveled to [place] from one of the affected countries or regions?: NO Recent travel in the [place] within the last 8 weeks?: No Recent out of the country travel within the last 8 weeks?: No Exposure or possible exposure to illness during travel?: No Had IN PERSON contact w/suspected or confirmed C-19 person: No Have you had the following symptoms in the past few days?: No Symptoms noted since travel?: No Symptoms
--- NOTE | 2020-01-26 15:07 | DSE_ITS ---
Date of service: 01/26/20 Time of Service: 15:07 DS: Diagnosis Discharge Diagnosis (1) Acute pancreatitis: Status: Acute (2) Diverticulitis: Status: Chronic (3) DVT (deep venous thrombosis): Status: Chronic (4) Bronchitis: Status: Chronic (5) Anemia: Status: Chronic (6) Cellulitis: Status: Acute Discharge Plan Disposition Patient Disposition: HOME Condition: Stable Discharge Details Chief Complaint: Abd Prob Clinical Impression: Acute pancreatitis, Diverticulitis Reason For Visit: PANCREATITIS,DIVERTICULITIS Admit Date/Time: 01/23/20 15:23 Admit Provider: Konstantin Post Attending Provider: Konstantin Post Primary Care Provider: Tere Brar ED Provider: Real Duarte Hospital Course Hospital Course: 59-year-old woman with history of idiopathic pancreatitis who presented with recurrence of epigastric to back pain and nausea and vomiting. Lipase was over 15,[address] showed increasing severity of pancreatic and peripancreatic inflammation since 221 CT scan. No abscess or cyst formation. Patient was admitted for IV fluids, antiemetics, and kept n.p.o. Her symptoms improved with a course of 2 days and her diet was progressed. She was eating a regular low residue diet and taking medications by mouth prior to discharge. CT also showed uncomplicated diverticulitis in the descending and sigmoid junction. Initially, she did not have lower abdominal pain, but as the epigastric pain improved and bowel function resumed she had increased lower abdominal pain. She was treated with ciprofloxacin and metronidazole. She was discharged with 4 more days of metronidazole to complete a 7-day course. Patient met with pharmaceutical representative to discuss diet related to her pancreatitis and diverticulitis. Previous plan to follow-up with gastroenterology at [facility] has been postponed due to the coronavirus pandemic. On the morning of discharge, she had a new area of redness and swelling in her left lower extremity. Vascular ultrasound of the extremity did not show a DVT. Patient has been taking her apixaban to treat previous DVT. Her ciprofloxacin was changed to levofloxacin to cover presumed cellulitis along with her diverticulitis. Course was extended for another 6 days after single dose was given here on the day of discharge. Home Meds and New Rx's Prescriptions: New metronidazole 500 mg Tablet 500 mg PO Q6H Qty: 16 RF: 0 levofloxacin [Levaquin] 750 mg Tablet 750 mg PO QAM Qty: 6 RF: 0 albuterol sulfate [Ventolin HFA] 90 mcg/actuation Hfa Aerosol Inhaler 2 puff inhalation Q6H PRN PRNQty: 0 RF: 0 Continued Eliquis 5 mg Tablet 5 mg PO BID RF: 0 Advair HFA 115-21 mcg/actuation Hfa Aerosol Inhaler 2 puff INHALATION BID RF: 0 Discharge Instructions Instructions: Pancreatitis (DC), Diverticulitis (DC) Additional Instructions: Start metronidazole with evening dose tonight. Start levofloxacin tomorrow. Levofloxacin prescription should last longer because it is also treating the infection on your leg in addition to the intestinal infection. Avoid alcohol, both for pancreatitis and because of metronidazole Follow the diet guidelines given to you by the pharmaceutical representative Stand Alone Forms: Nursing Discharge Form Activity:: Activity as Tolerated Equipment/Supplies:: No Equipment Needed Diet:: Per nutrition, pancreatitis/diverticulitis diet Discharge Orders Discharge Orders: Discharge Order (Routine); Ordered 01/26/20 Ordered By: Malik Talamantes DS: Summary Status at Discharge Functional status at discharge: independent ambulation Overall status at discharge: patient is progressing back to baseline Mental Status: mental status grossly normal Speech and Movement: speech and movement normal Mood: congruent mood Affect: normal affect Exam Narrative Exam Narrative: General alert and oriented, walking around floor, no apparent distress HEENT: Moist mucous membranes, no icterus Lungs: Clear to auscultation bilaterally normal effort Cardiovascular: Regular rate and rhythm no murmurs gallops or rubs GI: Active bowel sounds, soft, mildly tender in epigastrium and lower quadrants, no guarding or rebound Extremities: No cyanosis or clubbing. No edema on right. Left lower extremity with 1-2+ pitting edema, medial aspect with red and warm and tender area from ankle up to mid lower leg, marked Psych Mental Status: mental status grossly normal Speech and Movement: speech and movement normal Mood: congruent mood Affect: normal affect DS: Data Vitals/I&O Vitals and I&O: Vital Signs Temperature 37.2 C 01/26/20 08:35 Temperature Source Tympanic 01/26/20 08:35 Pulse 65 01/26/20 08:35 Pulse Rhythm Regular 01/26/20 08:57 Respiratory Rate 16 01/26/20 08:35 Respiratory Effort Non-Labored 01/26/20 08:57 Respiratory Depth Normal 01/26/20 08:57 Respiratory Pattern Normal 01/26/20 08:57 Blood Pressure 130/78 01/26/20 08:35 Blood Pressure Position Sitting 01/23/20 12:32 Pulse Oximetry 98 01/26/20 08:35 Oxygen Delivery Method Room Air 01/26/20 08:35 Oxygen Flow Rate 0 01/26/20 08:35 Pain Level 7 01/26/20 08:36 Comment 01/26/20 04:26 Intake & Output 01/25/20 01/26/20 01/26/20 23:59 11:59 23:59 Intake Total 2673.417 / 5273.417 1740.500 / 2197.583 457.083 / 2197.583 Output Total 4650 / 5650 3700 / 3700 Balance -1976.583 / -376.583 -1959.500 / -1502.417 457.083 / -1502.417 Weight 108.6 kg Intake: IV 1993.417 / 4393.417 710.500 / 917.583 207.083 / 917.583 Oral 680 / 880 1030 / 1280 250 / 1280 Output: Urine 4650 / 5650 3700 / 3700 Other: Urine Color Pale Pale Yellow Yellow Urine Appearance Clear Clear Comment per Pt report Voiding Methods Toilet Toilet Data Completed and Pending Labs on day of discharge: Labs from last 24 hours 01/26/20 01/26/20 06:05 06:05 WBC 6.10 RBC 3.63 L Hgb 10.7 L Hct 32.8 L MCV 90.4 MCH 29.5 MCHC 32.6 RDW 13.4 Plt Count 161 MPV 11.6 H Immature Gran % 0.2 Neutrophils % 74.5 Lymphocytes % 16.9 Monocytes % 6.7 Eosinophils % 1.5 Basophils % 0.2 Absolute Neutrophils 4.55 Absolute Lymphocytes 1.03 L Absolute Monocytes 0.41 Absolute Eosinophils 0.09 Absolute Basophils 0.01 Sodium 143 Potassium 3.8 Chloride 108 H Carbon Dioxide 27.3 Anion Gap 7.7 BUN 6 L Creatinine 0.81 Estimated GFR/1.73 m2 >= 60.00 Glucose 115 H Calcium 8.4 L Total Bilirubin 0.3 AST 12 L ALT 15 Alkaline Phosphatase 63 Total Protein 6.3 L Albumin 2.8 L PFSH Medical History (Updated 01/26/20 @ 15:10 by Malik Talamantes) Anemia (Chronic) Bartholin gland cyst (Acute) 08/2019. referred to [facility]. No appt made. DVT (deep venous thrombosis) (Chronic) Surgical History Status post open reduction with internal fixation of fracture (Chronic) ankle, wrist Vaginal hysterectomy (Chronic) Social History Smoking/Tobacco Use Status: Former Tobacco Use Alcohol Intake: never Drug use: Never Substance use type: does not use Do you feel safe at home: Yes Do you feel safe in your relationship?: Yes
--- NOTE | 2020-01-26 15:42 | PDOC.CMDIS ---
- If Service Date Differs Date of service: 01/26/20 Time of Service: 15:42 LACE Index Scoring Tool - Questions: Length of Stay (in days): 3 Acuity (Admit via E.D.?): Yes E.D. Visits: 4 - Answers: Total Score: 10 Risk of Readmission: High Risk Care Management Discharge Reason for Hospitalization: Acute pancreatitis and diverticulitis Discharge Plan: Angie will be discharged home with no new services. She will follow up with her PCP, surgeon and discharge plan of care. angie will transport via private vehicle with family. Patient/Family Education Needs: Discharge plan, limitations, dietary restrictions, follow up plan, Ask Me Three
== END 2020-01-26 15:41 | disposition home or self-care (01) | DRG 439 ==
LOC: ER 15:09 → MS 16:06
PROVIDERS: Admitting Provider Internal Medicine; Emergency Provider Emergency Medicine; PCP Nurse Practitioner Family; Visit Provider Family Medicine
DX: K85.90 Acute pancreatitis without necrosis or infection, unspecified (principal); K57.32 Diverticulitis of large intestine without perforation or abscess without bleeding; L03.116 Cellulitis of left lower limb; J20.9 Acute bronchitis, unspecified; J42 Unspecified chronic bronchitis; Z86.718 Personal history of other venous thrombosis and embolism; Z79.01 Long term (current) use of anticoagulants; D64.89 Other specified anemias; Z87.891 Personal history of nicotine dependence
CPT/HCPCS: 36415; 80053; 83690; 93005; 94640; 96361; 96375; 96376; 99223; 99232; 99239; 99285; 74177; 83735; 84484; 85025; 85610; 93010; 93971; 99284; J0744; J2270; J2405; J3490

== ENCOUNTER 2020-04-03 10:00 | Outpatient (CLI) | payer MEDICAID, SELFPAY ==
--- NOTE | 2020-04-03 | DI.US_ITS ---
EXAM: US LOWER EXTREMITY VENOUS LT CLINICAL HISTORY: PAIN/CRAMPING AT MEDIAL THIGH X SEVERAL DAYS, H/O DVT LT COMMON FEM GSV TECHNIQUE: Left lower extremity venous ultrasound performed using grayscale, color-flow, and spectra l Doppler analysis. COMPARISON: No exams were available for comparison FINDINGS: The left common femoral, femoral and popliteal veins demonstrate normal compressibility, augmentation , and color Doppler. The posterior tibial veins are patent. The saphenofemoral junction is unremarka ble. There is no evidence of a Cruz cyst. The soft tissues are unremarkable. IMPRESSION: No DVT. DATA REPOSITORY:
== END 2020-04-03 10:20 ==
PROVIDERS: PCP Nurse Practitioner Family; Visit Provider Nurse Practitioner Family
DX: M79.652 Pain in left thigh (principal); R25.2 Cramp and spasm
CPT/HCPCS: 93971

== ENCOUNTER 2020-04-05 04:39 | Outpatient (CLI) | payer MEDICAID, SELFPAY ==
[2020-04-05 10:33] LABS: Abs Immature Grans 0.01 k/cumm (0.0-0.09); Absolute Basophil Count 0.02 k/cumm (0.0-0.2); Absolute Eosinophil Count 0.07 k/cumm (0.0-0.7); Absolute Monocyte Count 0.31 k/cumm (0.11-0.7); Absolute Neutrophil Count 3.56 k/cumm (1.2-6.7); Basophils % 0.3; Eosinophils % 1.2; HCT 38.8 % (36.0-46.0); HGB 12.7 g/dL (12.0-15.5); Immature Grans % 0.2 %; Lymphocytes % 32.4; Mean Corp. HGB Concentration 32.7 g/dL (32.0-36.0); Mean Corpuscular Hemoglobin 29.5 pg (27.0-33.0); Mean Platelet Volume 11.2 fL (8.0-11.0); Monocytes % 5.3; Neutrophils % 60.6; Platelet Count 234 x1000/uL (130-400); RBC 4.31 m/cumm (4.00-5.20); RBC Distribution Width 13.9 % (11.7-14.6); White Blood Cell Count 5.87 k/cumm (4.4-10.8)
[2020-04-05 11:00] LABS: C-Reactive Protein 0.23 mg/dL (0.0-0.3)
[2020-04-05 11:20] LABS: ESR 11 mm/hr (0-30)
[2020-04-05 12:00] LABS: D-Dimer 284 ng/mlFEU (<500)
== END 2020-04-05 04:59 ==
PROVIDERS: PCP Nurse Practitioner Family; Visit Provider Nurse Practitioner Family
DX: Z86.718 Personal history of other venous thrombosis and embolism (principal)
CPT/HCPCS: 36415; 85652; 85025; 85379; 86140

== ENCOUNTER 2020-08-23 20:22 | Outpatient (REF) | payer MEDICAID, SELFPAY ==
[2020-08-26 11:12] LABS: SARS-CoV-2 RNA Not Detected (NotDetected); SARS-CoV-2 RNA Source Nasopharynx
== END 2020-08-23 20:42 ==
LOC: NCHCN 20:22
PROVIDERS: PCP Nurse Practitioner Family; Visit Provider Family Medicine
DX: J02.9 Acute pharyngitis, unspecified (principal)
CPT/HCPCS: U0003

== ENCOUNTER 2021-04-05 21:47 | Outpatient (REF) | payer OTHER, MEDICAID, SELFPAY ==
[2021-04-05 14:23] LABS: HCT 39.4 % (36.0-46.0); MCH 29.5 pg (27.0-33.0); MCV 89.3 fL (80-95); MPV 12.2 fL (8.0-11.0); Platelet Count 245 10^3/uL (130-400); RBC 4.41 10^6/uL (3.93-5.22); RDW 12.7 % (11.7-14.6); RDW-SD 41.7 fL; WBC 7.27 10^3/uL (4.4-10.8)
[2021-04-05 14:43] LABS: Anion Gap 12.6 mmol/L (3-11); BUN 13 mg/dL (7-18); CO2 24.4 mmol/L (21.0-32.0); CREATININE 0.9 mg/dL (0.55-1.02); Calcium 9.5 mg/dL (8.5-10.1); Calculated LDL 155 mg/dL (<100); Chloride 104 mmol/L (98-107); Cholesterol 233 mg/dL (<200); Glucose 113 mg/dL (74-106); HDL Cholesterol 48 mg/dL (40-60); Potassium 4.3 mmol/L (3.5-5.1); Sodium 141 mmol/L (136-145); Triglyceride 153 mg/dL (<150)
== END 2021-04-05 21:48 | disposition home or self-care (01) ==
LOC: NCHCN 21:47
PROVIDERS: PCP Nurse Practitioner Family; Visit Provider Nurse Practitioner Family
DX: Z00.00 Encounter for general adult medical examination without abnormal findings (principal); Z13.220 Encounter for screening for lipoid disorders; Z86.718 Personal history of other venous thrombosis and embolism; Z79.01 Long term (current) use of anticoagulants
CPT/HCPCS: 80048; 80061; 85027

== ENCOUNTER 2021-04-17 01:46 | Outpatient (CLI) | payer OTHER, MEDICAID, SELFPAY ==
--- NOTE | 2021-04-17 | DI.MAMMO_ITS ---
Exam(s) MAMMO SCREENING EXAM: MAMMO SCREENING CLINICAL HISTORY: SCREENING, Z00.00. TECHNIQUE: Bilateral full field digital CC and MLO mammographic images were obtained with 3D tomosyn thesis and utilizing computer aided detection (CAD). COMPARISON: Prior mammograms dating back to 2011, the most recent being September 2019. FINDINGS: There are no CAD designations. There are no new findings in the immediate vicinity of the biopsy marker located anteriorly in the ri ght breast. There are no new spiculated masses nor malignant appearing microcalcification groups. There is no significant architectural distortion nor skin thickening-retraction. IMPRESSION: No radiographic evidence of malignancy. BI-RADS Category 1 - Negative Breast Density - Category B - Scattered areas of fibroglandular density Breast density Category C or D implies that the patient has dense breast tissue. Dense breast tissue can make it harder to find cancer on a mammogram. Dense breast tissue is also associated with an incr eased risk of breast cancer. This information about the result of the mammogram report was provided to the patient to raise their awareness. Use this report when you speak with the patient about their risks for breast cancer, which includes their family history. At that time, you may recommend additional screening tests (Ultrasoun d or MRI) as these tests may add significant information. A negative radiographic report should not delay biopsy if a dominant or clinically suspicious mass is present. Up to ten percent of cancers are not identified on mammography. A negative report may reinforce clinical impression. Adenosis and dense breasts may obscure an underlying neoplasm. False positive reports average 6 to 10%. Patient will receive a letter notifying them of these results.
== END 2021-04-17 02:06 ==
PROVIDERS: PCP Nurse Practitioner Family; Visit Provider Nurse Practitioner Family
DX: Z00.00 Encounter for general adult medical examination without abnormal findings (principal); Z12.31 Encounter for screening mammogram for malignant neoplasm of breast; R92.8 Other abnormal and inconclusive findings on diagnostic imaging of breast
CPT/HCPCS: 77063; 77067

== ENCOUNTER 2021-06-26 08:06 | Outpatient (REF) | payer OTHER, MEDICAID, SELFPAY ==
[2021-06-26 17:27] LABS: TSH (W/Ref FT4) 2.92 uIU/mL (0.36-3.74)
[2021-06-27 01:38] LABS: Vitamin D 25 Total 87.8 ng/mL (30-100)
== END 2021-06-26 08:07 | disposition home or self-care (01) ==
LOC: NCHCN 08:06
PROVIDERS: PCP Nurse Practitioner Family; Referring Provider Nurse Practitioner Family; Visit Provider Nurse Practitioner Family
DX: F41.9 Anxiety disorder, unspecified (principal)
CPT/HCPCS: 82306; 84443

== ENCOUNTER 2021-10-07 17:07 | Outpatient (REF) | payer OTHER, MEDICAID, SELFPAY ==
[2021-10-07 20:04] LABS: BUN 15 mg/dL (7-18); CREATININE 0.8 mg/dL (0.55-1.02); Calcium 9.3 mg/dL (8.5-10.1); Chloride 105 mmol/L (98-107); Glucose 113 mg/dL (74-106); Potassium 4.4 mmol/L (3.5-5.1); Sodium 140 mmol/L (136-145)
== END 2021-10-07 17:08 | disposition home or self-care (01) ==
LOC: NCHCN 17:07
PROVIDERS: PCP Nurse Practitioner Family; Visit Provider Nurse Practitioner Family
DX: Z00.00 Encounter for general adult medical examination without abnormal findings (principal)
CPT/HCPCS: 80048

== ENCOUNTER 2021-12-06 18:35 | Outpatient (REF) | payer MEDICAID, SELFPAY ==
[2021-12-08 12:04] LABS: COVID-19 RT-PCR UVMMC Result Negative (Negative)
== END 2021-12-06 18:36 | disposition home or self-care (01) ==
LOC: LBN 18:35
PROVIDERS: PCP Nurse Practitioner Family; Visit Provider Physician Assistant Medical
DX: Z20.822 Contact with and (suspected) exposure to COVID-19 (principal); R05.8 Other specified cough
CPT/HCPCS: U0003

== ENCOUNTER → 2021-12-14 12:29 | Outpatient (CLI) | payer MEDICAID, SELFPAY ==
--- NOTE | 2021-12-14 | DI.RAD_ITS ---
Exam(s) XR CHEST 2V PA LATERAL EXAM: XR CHEST 2V PA LATERAL CLINICAL HISTORY: COUGH TECHNIQUE: 2D digital imaging was performed of the chest. Two images were obtained. PA and lateral views were obtained. COMPARISON: No exams were available for comparison FINDINGS: MEDIASTINUM: Normal. HEART: Normal. PULMONARY VASCULATURE: Normal. LUNGS: Clear. PLEURAL SPACE: No pleural effusion or pneumothorax. BONE:Within normal limits for the patient's age. OTHER FINDINGS:Normal. IMPRESSION: No acute pulmonary findings. DATA REPOSITORY: RADIATION DOSE DELIVERED:
--- NOTE | 2021-12-14 13:02 | DI.VRAD_ITS ---
PROCEDURE INFORMATION: Exam: XR Chest Exam date and time: 12/14/2021 12:33 PM Age: 61 years old Clinical indication: Cough TECHNIQUE: Imaging protocol: XR of the chest. Views: 2 views. COMPARISON: CT CHEST PE CTA 12/09/2019 1:32 AM FINDINGS: Lungs: Unremarkable. No consolidation. Pleural spaces: Unremarkable. No pleural effusion. No pneumothorax. Heart/Mediastinum: Unremarkable. No cardiomegaly. Bones/joints: Unremarkable. IMPRESSION: No acute findings. Dictated and Authenticated by: Ivone Omalley MD. Ordering:DELTA Bello MD
== END ==
PROVIDERS: PCP Nurse Practitioner Family; Visit Provider Physician Assistant Medical
DX: R05.8 Other specified cough (principal)
CPT/HCPCS: 71046

== ENCOUNTER 2022-04-01 09:18 | Outpatient (REF) | payer OTHER, MEDICAID, SELFPAY ==
[2022-04-01 15:27] LABS: Calculated LDL 138 mg/dL (<100); Cholesterol 214 mg/dL (<200); HDL Cholesterol 55 mg/dL (40-60); Triglyceride 109 mg/dL (<150)
== END 2022-04-01 09:19 | disposition home or self-care (01) ==
LOC: NCHCN 09:18
PROVIDERS: PCP Nurse Practitioner Family; Visit Provider Nurse Practitioner Family
DX: Z00.00 Encounter for general adult medical examination without abnormal findings (principal); Z13.220 Encounter for screening for lipoid disorders
CPT/HCPCS: 80061

== ENCOUNTER 2022-05-06 19:20 | Outpatient (REF) | payer OTHER, MEDICAID, SELFPAY ==
[2022-05-06 19:46] LABS: HCT 38.7 % (36.0-46.0); HGB 12.8 g/dL (11.2-15.7); MCH 29.9 pg (27.0-33.0); MCHC 33.1 % (32.0-36.0); MCV 90 fL (80-95); Platelet Count 257 10^3/uL (130-400); RBC 4.28 10^6/uL (3.93-5.22); RDW-SD 42.9 fL; WBC 6.88 10^3/uL (4.4-10.8)
[2022-05-06 20:01] LABS: Hemoglobin A1C 6.1 % (<5.7)
[2022-05-06 20:22] LABS: Anion Gap 8.1 mmol/L (3-11); BUN 19 mg/dL (7-18); CO2 28.9 mmol/L (21.0-32.0); Calcium 9.2 mg/dL (8.5-10.1); Chloride 104 mmol/L (98-107); Estimated GFR 56.56 (mL/min/1.73m2); Glucose 115 mg/dL (74-106); Sodium 141 mmol/L (136-145); TSH (W/Ref FT4) 1.32 uIU/mL (0.36-3.74); Vitamin B12 460 pg/mL (193-986)
[2022-05-08 05:24] LABS: Vitamin D 25 Total 65.5 ng/mL (30-100)
== END 2022-05-06 19:21 | disposition home or self-care (01) ==
LOC: NCHCN 19:20
PROVIDERS: PCP Nurse Practitioner Family; Visit Provider Nurse Practitioner Family
DX: F41.9 Anxiety disorder, unspecified (principal); Z86.59 Personal history of other mental and behavioral disorders; I10 Essential (primary) hypertension; R73.9 Hyperglycemia, unspecified
CPT/HCPCS: 80048; 82306; 85027; 82607; 83036; 84443

== ENCOUNTER 2022-10-08 16:19 | Outpatient (REF) | payer OTHER, MEDICAID, SELFPAY ==
[2022-10-08 19:53] LABS: HCT 38.3 % (36.0-46.0); HGB 12.6 g/dL (11.2-15.7); MCH 29.3 pg (27.0-33.0); MCHC 32.9 % (32.0-36.0); MCV 89 fL (80-95); MPV 12.1 fL (8.0-11.0); Platelet Count 251 10^3/uL (130-400); RDW 12.8 % (11.7-14.6); RDW-SD 41.9 fL; WBC 6.94 10^3/uL (4.4-10.8)
[2022-10-08 19:56] LABS: ESR 14 mm/hr (0-30)
[2022-10-08 20:14] LABS: ALT 22 U/L (14-59); AST 22 U/L (15-37); Albumin 4.4 g/dL (3.4-5.0); Alkaline Phosphatase 95 U/L (46-116); Anion Gap 7.6 mmol/L (3-11); BUN 13 mg/dL (7-18); Bilirubin, Total 0.3 mg/dL (0.2-1.0); C-Reactive Protein 0.34 mg/dL (0.0-0.3); CO2 29.4 mmol/L (21.0-32.0); Calcium 9.5 mg/dL (8.5-10.1); Chloride 102 mmol/L (98-107); Estimated GFR 64.49 (mL/min/1.73m2); Glucose 90 mg/dL (74-106); Potassium 3.6 mmol/L (3.5-5.1); Sodium 139 mmol/L (136-145); Total Protein 7.7 g/dL (6.4-8.2)
[2022-10-08 20:25] LABS: HDL Cholesterol 58 mg/dL (40-60); LDL CHOLESTEROL 125 mg/dL (<100)
== END 2022-10-08 16:20 | disposition home or self-care (01) ==
LOC: NCHCN 16:19
PROVIDERS: PCP Nurse Practitioner Family; Visit Provider Nurse Practitioner Family
DX: M79.662 Pain in left lower leg (principal); R60.0 Localized edema; I10 Essential (primary) hypertension
CPT/HCPCS: 80053; 83721; 85027; 85652; 83718; 86140

== ENCOUNTER 2023-07-13 16:09 | Outpatient (REF) | payer OTHER, MEDICAID, SELFPAY ==
[2023-07-13 21:08] LABS: ALT 30 U/L (14-59); AST 20 U/L (15-37); Albumin 3.9 g/dL (3.4-5.0); Alkaline Phosphatase 80 U/L (46-116); Anion Gap 10.2 mmol/L (3-11); BUN 15 mg/dL (7-18); Bilirubin, Total 0.2 mg/dL (0.2-1.0); CO2 26.8 mmol/L (21.0-32.0); CREATININE 1.1 mg/dL (0.55-1.02); Calcium 9.5 mg/dL (8.5-10.1); Chloride 104 mmol/L (98-107); Estimated GFR 57.17 (mL/min/1.73m2); Glucose 108 mg/dL (74-106); HDL Cholesterol 52 mg/dL (40-60); LDL CHOLESTEROL 112 mg/dL (<100); Potassium 3.9 mmol/L (3.5-5.1); Sodium 141 mmol/L (136-145); Total Protein 7.1 g/dL (6.4-8.2)
[2023-07-13 21:54] LABS: Creatine Kinase 136 U/L (26-192)
== END 2023-07-13 16:10 | disposition home or self-care (01) ==
LOC: NCHCN 16:09
PROVIDERS: PCP Nurse Practitioner Family; Visit Provider Nurse Practitioner Family
DX: Z00.00 Encounter for general adult medical examination without abnormal findings (principal); I10 Essential (primary) hypertension
CPT/HCPCS: 80053; 82550; 83721; 83718

== ENCOUNTER → 2023-07-28 00:25 | Outpatient (CLI) | payer OTHER, MEDICAID, SELFPAY ==
--- NOTE | 2023-07-28 | DI.MAMMO_ITS ---
Exam(s) MAMMO SCREENING EXAM: MAMMO SCREENING CLINICAL HISTORY: SCREENING MAMMO FOR BREAST CANCER Z12.39 Z12.31 TECHNIQUE: Mammograms were interpreted according to the usual protocol including computer analysis w ith CAD system, tomosynthesis and C-view imaging. COMPARISON: 2016 through 2020 FINDINGS: The breasts are composed of scattered fibroglandular densities, Breast Density category B. No suspicious masses or suspicious microcalcifications are seen. No skin thickening or abnormal axillary lymph nodes are seen. There has been no significant change from prior exams. IMPRESSION: BI-RADS Category 1, Negative mammogram Yearly screening mammography is recommended. Breast Density - Category B, scattered fibroglandular densities. A negative radiographic report should not delay biopsy if a dominant or clinically suspicious mass is present. Up to ten percent of cancers are not identified on mammography. A negative report may reinforce clinical impression. Adenosis and dense breasts may obscure an underlying neoplasm. False positive reports average 6 to 10%. Patient will receive a letter notifying them of these results.
== END ==
PROVIDERS: PCP Nurse Practitioner Family; Visit Provider Nurse Practitioner Family
DX: Z12.31 Encounter for screening mammogram for malignant neoplasm of breast (principal)
CPT/HCPCS: 77063; 77067

== ENCOUNTER 2023-10-06 20:35 | Outpatient (REF) | payer OTHER, SELFPAY ==
[2023-10-11 03:59] LABS: Methylphenidate Negative ng/mL (Cutoff: 10); Ritalinic Acid Negative ng/mL (Cutoff: 50)
== END 2023-10-06 20:36 | disposition home or self-care (01) ==
LOC: NCHCN 20:35
PROVIDERS: PCP Nurse Practitioner Family; Visit Provider Nurse Practitioner Family
DX: F90.2 Attention-deficit hyperactivity disorder, combined type (principal); Z79.899 Other long term (current) drug therapy
CPT/HCPCS: 80360

== ENCOUNTER 2023-12-16 03:26 | Outpatient (CLI) | payer OTHER, SELFPAY ==
[2023-12-16 17:53] LABS: TSH (W/Ref FT4) 1.79 uIU/mL (0.36-3.74); Vitamin B12 605 pg/mL (193-986)
[2023-12-18 14:15] LABS: Albumin 62.9 % (55.8-66.1); Albumin g/dL 4.4 g/dL (3.6-5.2)
== END 2023-12-16 03:27 | disposition home or self-care (01) ==
LOC: LBO 03:27
PROVIDERS: PCP Nurse Practitioner Family; Visit Provider Psychiatry & Neurology Neurology
DX: G62.9 Polyneuropathy, unspecified (principal)
CPT/HCPCS: 36415; 82607; 84165; 84443

== ENCOUNTER 2024-01-01 11:49 | Outpatient (CLI) | payer OTHER, SELFPAY ==
[2024-01-01 11:48] LABS: Hemoglobin A1C 6.3 % (<5.7)
== END 2024-01-01 11:50 | disposition home or self-care (01) ==
LOC: LBO 11:49
PROVIDERS: PCP Nurse Practitioner Family; Visit Provider Psychiatry & Neurology Neurology
DX: R73.9 Hyperglycemia, unspecified (principal)
CPT/HCPCS: 36415; 83036

== ENCOUNTER 2024-02-29 04:51 | Outpatient (CLI) | payer OTHER, SELFPAY ==
[2024-02-29 16:56] LABS: Abs Immature Grans 0.02 10^3/uL (0.0-0.06); Absolute Basophil Count 0.04 10^3/uL (0.0-0.2); Absolute Eosinophil Count 0.07 10^3/uL (0.0-0.7); Absolute Lymphocyte Count 2.12 10^3/uL (1.2-3.4); Absolute Monocyte Count 0.48 10^3/uL (0.1-0.8); Absolute Neutrophil Count 4.24 10^3/uL (1.2-6.7); Basophils % 0.6 %; HCT 36.9 % (36.0-46.0); HGB 12.2 g/dL (11.2-15.7); Immature Grans % 0.3 %; Lymphocytes % 30.4 %; MCH 30.2 pg (27.0-33.0); MCHC 33.1 % (32.0-36.0); MCV 91 fL (80-95); MPV 10.7 fL (8.0-11.0); Monocytes % 6.9 %; Neutrophils % 60.8 %; Platelet Count 217 10^3/uL (130-400); RBC 4.04 10^6/uL (3.93-5.22); RDW-SD 43.6 fL; WBC 6.97 10^3/uL (4.4-10.8)
[2024-02-29 17:53] LABS: ALT 33 U/L (14-59); AST 21 U/L (15-37); Albumin 4.1 g/dL (3.4-5.0); Alkaline Phosphatase 74 U/L (46-116); Anion Gap 8.9 mmol/L (3-11); BUN 18 mg/dL (7-18); Bilirubin, Total 0.3 mg/dL (0.2-1.0); CO2 28.1 mmol/L (21.0-32.0); Calcium 9.4 mg/dL (8.5-10.1); Chloride 104 mmol/L (98-107); Glucose 120 mg/dL (74-106); Potassium 4.5 mmol/L (3.5-5.1); Sodium 141 mmol/L (136-145); Total Protein 7.5 g/dL (6.4-8.2)
== END 2024-02-29 04:52 | disposition home or self-care (01) ==
PROVIDERS: PCP Nurse Practitioner Family; Visit Provider Internal Medicine
DX: Z79.899 Other long term (current) drug therapy (principal)
CPT/HCPCS: 36415; 80053; 85025

== ENCOUNTER 2024-08-08 02:51 | Outpatient (CLI) | payer OTHER, SELFPAY ==
[2024-08-08] MEDS: Methacholine 100 MG VIAL IH (16:24)
[2024-08-08] MEDS: Albuterol HFA 18 GM 200 PUFF INH IH (16:24)
[2024-08-08] MEDS: Inhaler, Assist Device 1 EACH MC (16:25)
--- NOTE | 2024-08-13 10:19 | W.PFT ---
Date of service: 08/08/24 Time of Service: 13:36 Pulmonary Function Test Result Indications: Dyspnea Interpretation Spirometry: There is no baseline airflow limitation. There was a 9% decrease in FEV1 with administration of 16 mg/mL methacholine. Lung Volumes: Normal volumes Diffusion Capacity: Normal diffusion Airway Pressure: Normal airways resistance Impression Normal pulmonary function testing with a negative methacholine challenge Clinical Correlation therefore is recommended.
== END 2024-08-08 02:52 | disposition home or self-care (01) ==
LOC: RT 02:51
PROVIDERS: PCP Nurse Practitioner Family; Visit Provider Student in an Organized Health Care Education/Training Program
DX: R06.00 Dyspnea, unspecified (principal)
CPT/HCPCS: 94060; 94070; 94726; 94729; 94010; J7674

== ENCOUNTER 2025-01-06 00:22 | Outpatient (CLI) | payer OTHER, SELFPAY ==
[2025-01-06 09:00] LABS: Calculated LDL 93 mg/dL (<100); Cholesterol 187 mg/dL (<200); HDL Cholesterol 71 mg/dL (>or=50); Triglyceride 117 mg/dL (<150)
== END 2025-01-06 00:23 | disposition home or self-care (01) ==
LOC: LBO 00:22
PROVIDERS: PCP Nurse Practitioner Family; Visit Provider Nurse Practitioner Family
DX: Z00.00 Encounter for general adult medical examination without abnormal findings (principal)
CPT/HCPCS: 36415; 80061

== ENCOUNTER 2025-01-27 08:53 | Outpatient (CLI) | payer OTHER, SELFPAY ==
--- NOTE | 2025-01-27 08:45 | RT.EKG_ITS ---
APPROVED REPORT Exam: Resting ECG Reason for Exam: Medication management for stimulant Patient Location: O HR:65 bpm ECG Measurements Heart Rate 65 AXIS IA 194 P -8 QRSd 81 QRS -7 QT 366 T 45 QTc 381 Conclusion Sinus rhythm...normal P axis, V-rate 50- 99 Normal Electrocardiogram
== END 2025-01-27 08:54 | disposition home or self-care (01) ==
LOC: DI.KIM 08:54
PROVIDERS: PCP Nurse Practitioner Family; Visit Provider Nurse Practitioner Family
DX: Z79.899 Other long term (current) drug therapy (principal)
CPT/HCPCS: 93010

== ENCOUNTER 2025-02-24 01:17 | Outpatient (CLI) | payer OTHER, SELFPAY ==
[2025-02-24 08:25] LABS: Abs Immature Grans 0.02 10^3/uL (0.0-0.06); Absolute Basophil Count 0.04 10^3/uL (0.0-0.2); Absolute Eosinophil Count 0.08 10^3/uL (0.0-0.7); Absolute Lymphocyte Count 1.91 10^3/uL (1.2-3.4); Absolute Monocyte Count 0.36 10^3/uL (0.1-0.8); Absolute Neutrophil Count 3.93 10^3/uL (1.2-6.7); Basophils % 0.6 %; Eosinophils % 1.3 %; HCT 38.1 % (36.0-46.0); HGB 12.7 g/dL (11.2-15.7); Immature Grans % 0.3 %; Lymphocytes % 30.1 %; MCH 30.3 pg (27.0-33.0); MCHC 33.3 % (32.0-36.0); MCV 91 fL (80-95); MPV 10.6 fL (8.0-11.0); Monocytes % 5.7 %; Platelet Count 230 10^3/uL (130-400); RBC 4.19 10^6/uL (3.93-5.22); RDW 12.6 % (11.7-14.6); RDW-SD 41.4 fL; WBC 6.34 10^3/uL (4.4-10.8)
[2025-02-24 09:46] LABS: Hemoglobin A1C 6.1 % (<5.7)
[2025-02-24 09:47] LABS: ALT 17 U/L (14-59); AST 12 U/L (15-37); Albumin 3.8 g/dL (3.4-5.0); Alkaline Phosphatase 63 U/L (46-116); Anion Gap 8.6 mmol/L (3-11); BUN 16 mg/dL (7-18); Bilirubin, Total 0.4 mg/dL (0.2-1.0); CO2 27.4 mmol/L (21.0-32.0); Calcium 9.5 mg/dL (8.5-10.1); Chloride 103 mmol/L (98-107); Glucose 114 mg/dL (74-106); Potassium 4.3 mmol/L (3.5-5.1); Sodium 139 mmol/L (136-145); Total Protein 7.1 g/dL (6.4-8.2)
[2025-02-27 15:14] LABS: TB Interpretation Negative (Negative); TB1 Ag minus Nil 0.01 IU/mL
== END 2025-02-24 01:18 | disposition home or self-care (01) ==
PROVIDERS: PCP Nurse Practitioner Family; Referring Provider Nurse Practitioner Family; Visit Provider Student in an Organized Health Care Education/Training Program
DX: R73.09 Other abnormal glucose (principal); Z79.899 Other long term (current) drug therapy
CPT/HCPCS: 36415; 80053; 85027; 83036; 85025; 86480

== ENCOUNTER 2025-06-13 12:02 | Outpatient (CLI) | payer OTHER, SELFPAY ==
--- NOTE | 2025-06-13 15:22 | DI.MAMMO_ITS ---
Exam(s) MAMMO SCREENING EXAM: MAMMO SCREENING CLINICAL HISTORY: screening,Z12.31 TECHNIQUE: Bilateral full field digital CC and MLO mammographic images were obtained with 3D tomosynthesis and utilizing computer aided detection (CAD). COMPARISON: Comparison is made with prior examinations. FINDINGS: Masses/Architectural Distortion: No suspicious masses or areas of architectural distortion are present. Microcalcifications: No suspicious pleomorphic-type are seen. Skin Thickening/Nipple Retraction: None. IMPRESSION: 1. No significant interval change with no specific features of malignancy noted. 2. Unless there is more urgent need, screening mammography is recommended, as per [employer] guidelines. BI-RADS Category 1 - Negative Breast Density - Category B - There are scattered areas of fibroglandular density. Breast density Category C or D implies that the patient has dense breast tissue. Dense breast tissue can make it harder to find cancer on a mammogram. Dense breast tissue is also associated with an increased risk of breast cancer. This information about the result of the mammogram report was provided to the patient to raise their awareness. Use this report when you speak with the patient about their risks for breast cancer, which includes their family history. At that time, you may recommend additional screening tests (Ultrasound or MRI) as these tests may add significant information. A negative radiographic report should not delay biopsy if a dominant or clinically suspicious mass is present. Up to ten percent of cancers are not identified on mammography. A negative report may reinforce clinical impression. Adenosis and dense breasts may obscure an underlying neoplasm. False positive reports average 6 to 10%. Patient will receive a letter notifying them of these results.
== END 2025-06-13 12:22 ==
PROVIDERS: PCP Nurse Practitioner Family; Visit Provider Nurse Practitioner Family
DX: Z12.31 Encounter for screening mammogram for malignant neoplasm of breast (principal); R92.323 Mammographic fibroglandular density, bilateral breasts
CPT/HCPCS: 77063; 77067

== ENCOUNTER 2025-06-20 08:16 | Outpatient (CLI) | payer OTHER, SELFPAY ==
--- NOTE | 2025-06-20 10:11 | W.NUTRFU ---
Date of service: 06/20/25 Time of Service: 09:00 Nutrition Note NOTE: Angie referred to nutrition appt today for help with glucose improvement as she had her A1C increase to 6.2 last April and has been hovering in the lower 6's ofr the last 3 years. Her BMI at her provider visit last April was 29.5 and has been above 28 for over 6 years. She takes nutrition supplements -reports MVI, calcium/D3, Red yeast rice and another cholesterol supp she forgot the name of, fish oil, bcomplex, tumeric, biotin. Takes metformin at home. NKFA per Angie. 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 Hx of cholecystectomy. Recent heartburn a big complaint - treats with TUMS daily From nutrition interview, usual diet has potential for being low in fiber and optimal protein intake, and can be high in added sugar and refined carbs on many days. We reviewed importance of hitting fiber goal of ideally ~30g or more per day (can build gradually if GI sx occur) - drink plenty of water while trying to increase fiber. We reviewed trying to hit optimal intake goal of 135g per day and stressed plant sources make up a good deal to avoid excessive kcals from animal sources. -recommended some whey protein isolate and/or collagen to contribute to this total. We reviewed limiting added sugars to no more than 30 g per day. Reviewed resource for help menu planning towards the above. Angie eats for 1 so encouraged repetition of meals, especially breakfast as lunch and dinner can be influenced by her schedule and where she is/eating with clients etc.. Encouraged targeted resistance exercises to help with insulin resistance and weight loss (fat loss while preserving muscle) to help with numbers as well. Angie feels she has enough info to get started with monitoring her intake and making changes as necessary. She has my contact info should she desire follow up or has any quick questions/needs Time Spent in Nutritional Counseling and Treatment: 25 min
== END 2025-06-20 08:17 | disposition home or self-care (01) ==
LOC: DS 08:16
PROVIDERS: PCP Nurse Practitioner Family; Visit Provider Dietitian, Registered
DX: R73.03 Prediabetes (principal)
CPT/HCPCS: 00123; 97802